=== PATIENT | female | born 1995 | race Caucasian/White ===

== ENCOUNTER 2024-04-02 18:02 | Inpatient (IN) ==
[2024-04-02] MEDS ORDERED: LIDOCAINE 1% LOCAL 20 ML VIAL INFIL PRN (18:14)
[2024-04-02] MEDS ORDERED: OXYTOCIN 30 UNITS/NSS 30 UNITS/500 ML BAG IV PRN (18:14)
[2024-04-02 18:57] LABS: Hematocrit (blood only) 35.8 % (37.0-47.0); Hemoglobin 12.1 g/dl (12.0-16.0); Mean Corpuscular Hemoglobin 29.6 pg (25.0-34.0); Mean Corpuscular Hgb Conc 33.8 g/dL (32.0-36.0); Mean Corpuscular Volume 87.5 fL (80.0-100.0); Platelet Count 274 K/uL (130-400); RDW Coefficient of Variation 13.1 % (11.5-14.5); RDW Standard Deviation 41.9 fL (36.4-46.3); Red Blood Count 4.09 M/uL (4.20-5.40); White Blood Count 12.54 K/ul (4.8-10.8)
[2024-04-02] MEDS: LACTATED RINGER'S 1,000 ML IV PRN (22:58)
[2024-04-02] MEDS: OXYTOCIN 30 UNITS/NSS 30 UNITS/500 ML BAG IV PRN (23:00)
[2024-04-03] MEDS ORDERED: diphenhydrAMINE 50 MG/ML VIAL IV PRN (01:08)
[2024-04-03] MEDS ORDERED: NALBUPHINE HCL 5 MG in SYRINGE 0 ML IV PRN (01:08)
[2024-04-03] MEDS ORDERED: NALOXONE HCL 1 MG in SODIUM CHLORIDE 0.9% 1,000 ML IV PRN (01:08)
[2024-04-03] MEDS ORDERED: NALOXONE HCL 0.4 MG/1 ML VIAL/CARP IV PRN (01:08)
[2024-04-03] MEDS ORDERED: fentaNYL citrate PF 100 MCG/2 ML VIAL EPI PRN (01:08)
[2024-04-03] MEDS ORDERED: ROPIVACAINE 0.5% PF 5 MG/ML 20 ML VIAL EPI PRN (01:08)
[2024-04-03] MEDS ORDERED: SODIUM CHLORIDE 0.9% PF INJ 10 ML VIAL EPI PRN (01:08)
[2024-04-03] MEDS ORDERED: LIDOCAINE 2% MPF LOCAL 5 ML VIAL EPI PRN (01:08)
[2024-04-03] MEDS ORDERED: BUPIVACAINE 0.25% PF 30 ML VIAL EPI PRN (01:08)
[2024-04-03] MEDS ORDERED: ePHEDrine sulfate 50 MG/ML AMP IV PRN (01:08)
--- NOTE | 2024-04-03 01:08 | Anesthesiology Consultation ---
Date of Service April 03, 2024 Assessment & Plan Chart Review Chart Review: Patient NOT seen in Pre Admission Testing and Acceptable Risk for Labor Epidural Consults Requested none History Height/Weight Height: 5 ft 4 in Weight: 79.832 kg Allergies Allergy/AdvReac Type Severity Reaction Status Date / Time banana Allergy Severe throat Verified 03/30/24 15:41 closes, hives, throwing up shellfish derived Allergy Severe throat Verified 03/30/24 15:41 closes, hives, throwing up Milk Containing Products Allergy Unknown became Verified 03/30/24 15:41 (Dairy) lactose intolerant during Medications Home Medications Medication Instructions Recorded Confirmed Last Taken acetaminophen 500 mg tablet 500 mg PO DIRECTED PRN 12/26/23 04/02/24 04/01/24 pain/fever cetirizine 10 mg tablet (Zyrtec) 10 mg PO DAILY 12/26/23 04/02/24 04/02/24 esomeprazole magnesium 20 mg 20 mg PO DAILY 02/05/24 04/02/24 04/01/24 capsule,delayed release cephalexin 500 mg capsule 500 mg PO TID 7 days #21 caps 03/30/24 04/02/24 04/02/24 14:30 diphenhydramine HCl 25 mg capsule 25 mg PO DIRECTED PRN NEEDED 03/30/24 04/02/24 03/27/24 (Benadryl) famotidine-Ca carb-mag hydrox 10 1 tab PO DIRECTED PRN NEEDED 03/30/24 04/02/24 04/01/24 mg-800 mg-165 mg chewable tablet (Pepcid Complete) glycerin (adult) 1 supp MN DAILY PRN ULCERATIVE 03/30/24 04/02/24 03/30/24 COLITIS ondansetron 4 mg disintegrating 4 - 8 mg (1 - 2 x 4 mg) PO Q6H PRN 03/30/24 04/02/24 04/01/24 tablet nausea and vomiting #20 tabs melatonin 5 mg chewable tablet 15 mg PO DAILY 04/02/24 04/02/24 04/01/24 vits no.124-ferrous fum 1 tab PO DAILY 04/02/24 04/02/24 04/01/24 27 mg iron-folic acid 800 mcg tablet ( Vitamin) Active Medications Generic Name Dose Route Start Last Admin Trade Name Livan PRN Reason Stop Dose Admin Lactated Ringer's 1,000 mls @ 125 mls/hr 04/02/24 18:14 04/03/24 01:06 Lr IV 04/04/24 18:13 125 mls/hr .Q8H PRN Infusion L&D Protocol Protocol Oxytocin 30 units in 500 mls @ 4 mls/hr 04/02/24 22:46 04/02/24 23:35 Pitocin 30 Units/Nss IV 04/04/24 22:45 0.24 units/hr .Q24H PRN 4 mls/hr Labor Induction/Augmentation Titration Protocol 0.24 UNITS/HR Past Medical History Medical History Ovarian cyst Varicella vaccination Depression Anxiety Asthma Past Family History Family History Grandmother (Maternal) Breast cancer Maternal grandmother, maternal great grandmother Aunt Crohn's disease Ovarian cancer maternal great aunt Grandfather (Paternal) Lung disease Denies family history of Colorectal cancer Past Surgical History Surgical History S/P endoscopy S/P wisdom tooth extraction S/P dilatation and curettage S/P colonoscopy H/O flexible sigmoidoscopy Social History Smoking Status: Former smoker Do You Dip or Chew Tobacco: No Hx Alcohol Use: No Hx Substance Use: No Physical Exam Vital Signs Last Vital Signs Temp 98.4 F 04/02/24 23:00 Pulse 89 04/03/24 01:05 Resp 18 04/02/24 23:00 BP 112/65 04/03/24 00:10 Pulse Ox 100 04/03/24 01:05 Testing Laboratory Results 04/02/24 18:36
[2024-04-03] MEDS: LIDOCAINE 2%/EPINEPHRINE 1:200,000 20 ML PF EPI STA (01:29)
[2024-04-03] MEDS: BUPIVACAINE 0.25% PF 30 ML VIAL EPI STA (01:29)
[2024-04-03] MEDS: fentANYL 2 MCG/ML BUPIVacaine 0.125%-NSS 100ML BAG EPI PRN (01:29)
[2024-04-03] MEDS: fentaNYL citrate PF 100 MCG/2 ML VIAL ONE (02:03)
[2024-04-03] MEDS: SODIUM CHLORIDE 0.9% PF INJ 10 ML VIAL ONE (02:03)
[2024-04-03] MEDS: ePHEDrine sulfate 50 MG/ML AMP ONE (02:03)
[2024-04-03] MEDS: BUPIVACAINE 0.25% PF 30 ML VIAL ONE (02:03)
[2024-04-03] MEDS: LIDOCAINE 2%/EPINEPHRINE 1:200,000 20 ML PF ONE (02:03)
[2024-04-03] MEDS: fentANYL 2 MCG/ML BUPIVacaine 0.125%-NSS 100ML BAG ONE (02:03)
[2024-04-03] MEDS: fentaNYL citrate PF 100 MCG/2 ML VIAL EPI STA (02:04)
[2024-04-03] MEDS: SODIUM CHLORIDE 0.9% PF INJ 10 ML VIAL EPI STA (02:04)
[2024-04-03] MEDS ORDERED: NURSING L&D Epidural Breakthrough Pain Update ONE (09:08)
--- NOTE | 2024-04-03 11:20 | Delivery Summary ---
Vaginal Delivery Summary Date of Service April 03, 2024 Vaginal Delivery Summary and 2nd Degree LAC Spontaneous vaginal delivery the patient arrived in labor at 36 weeks and 6 days group B strep negative first baby with rupture of membranes she spontaneously started to contract but required some Pitocin augmentation requested epidural and then progressed to fully dilated she then delivered a baby occiput anterior once the head was delivered fluid was clear but there was a tight nuchal cord this was clamped and cut while the head was delivered but the body was not baby was then easily delivered with gentle traction no excessive force combined with maternal expulsive efforts live vigorous female cord blood obtained placenta removed with traction IV Pitocin started there was a small second- degree tear repaired with 3-0 Vicryl sponge and instrument counts correct quanti tative blood loss 175 mL MNPG Vaginal Delivery Charge Delivery Type Details: and 2nd Degree LAC
[2024-04-03] MEDS ORDERED: HYDROCORTISONE ACETATE 25 MG SUPP PR PRN (11:40)
[2024-04-03] MEDS ORDERED: IBUPROFEN 600 MG TAB PO PRN (11:40)
[2024-04-03] MEDS ORDERED: oxyCODONE/ACETAMINOPHEN 5mg/325mg TAB PO PRN (11:40)
[2024-04-03] MEDS ORDERED: bisacodyL 10 MG SUPP PR PRN (11:40)
[2024-04-03] MEDS ORDERED: OXYTOCIN 30 UNITS/NSS 30 UNITS/500 ML BAG IV PRN (11:40)
[2024-04-03] MEDS ORDERED: FAMOTIDINE 20 MG TAB PO PRN (11:54)
--- NOTE | 2024-04-03 12:38 | Anesthesiology Progress Note ---
Date of Service April 03, 2024 Anesthesia Post Procedure Vital Signs Vital Signs: Temp Pulse Resp BP Pulse Ox 04/03/24 12:35 85 112/57 L 04/03/24 12:20 82 106/59 L 04/03/24 12:06 87 126/66 04/03/24 11:50 90 18 105/63 04/03/24 11:50 90 105/63 04/03/24 11:35 83 18 111/67 04/03/24 11:35 83 111/67 04/03/24 11:34 85 112/61 04/03/24 11:31 89 100 04/03/24 11:26 91 H 98 04/03/24 11:21 36.7 C 89 18 109/58 L 99 04/03/24 11:21 98 04/03/24 11:21 92 H 04/03/24 11:21 90 109/58 L 04/03/24 11:16 97 H 99 04/03/24 11:11 97 H 98 04/03/24 11:06 92 H 98 04/03/24 11:04 94 H 92 04/03/24 11:01 98 H 97 04/03/24 10:57 89 91 04/03/24 10:56 91 H 96 04/03/24 10:52 90 90 04/03/24 10:51 89 96 04/03/24 10:47 96 H 93 04/03/24 10:45 90 97 04/03/24 10:40 100 H 98 04/03/24 10:39 96 H 93 04/03/24 10:35 93 H 98 04/03/24 10:34 85 113/56 L 04/03/24 10:33 91 H 93 04/03/24 10:30 86 97 04/03/24 10:25 101 H 97 04/03/24 10:20 87 99 04/03/24 10:19 110 H 92 04/03/24 10:15 86 97 04/03/24 10:11 85 88 L 04/03/24 10:10 81 100 04/03/24 10:05 98 04/03/24 10:05 83 04/03/24 10:05 83 121/62 04/03/24 10:04 90 04/03/24 10:04 104 H 04/03/24 10:04 105 H 130/93 04/03/24 10:00 89 97 04/03/24 09:59 101 H 91 04/03/24 09:55 91 H 99 04/03/24 09:50 87 100 04/03/24 09:45 98 H 100 04/03/24 09:40 79 98 04/03/24 09:35 87 122/72 98 04/03/24 09:30 82 98 04/03/24 09:25 87 99 04/03/24 09:20 79 99 04/03/24 09:15 81 99 04/03/24 09:10 79 98 04/03/24 09:05 85 97 04/03/24 09:04 83 127/76 04/03/24 09:02 36.8 C 85 18 122/78 04/03/24 09:00 86 97 04/03/24 08:57 93 H 89 L 04/03/24 08:55 87 97 04/03/24 08:50 78 97 04/03/24 08:45 78 98 04/03/24 08:40 75 97 04/03/24 08:35 96 04/03/24 08:35 78 04/03/24 08:35 77 107/61 04/03/24 08:30 79 97 04/03/24 08:25 76 97 04/03/24 08:20 79 98 04/03/24 08:15 81 97 04/03/24 08:10 79 98 04/03/24 08:05 88 98 04/03/24 08:04 79 102/60 04/03/24 08:00 81 98 04/03/24 07:55 78 97 04/03/24 07:50 78 98 04/03/24 07:45 81 98 04/03/24 07:40 78 97 04/03/24 07:35 96 04/03/24 07:35 78 04/03/24 07:35 78 105/60 04/03/24 07:30 79 97 04/03/24 07:25 81 98 04/03/24 07:20 80 98 04/03/24 07:15 81 98 04/03/24 07:10 79 99 04/03/24 07:06 80 116/69 04/03/24 07:05 81 98 04/03/24 07:00 82 100 04/03/24 06:55 96 H 98 04/03/24 06:50 80 98 04/03/24 06:45 93 H 98 04/03/24 06:40 72 96 04/03/24 06:35 72 96 04/03/24 06:34 75 109/64 04/03/24 06:30 74 96 04/03/24 06:25 80 95 04/03/24 06:24 76 92 04/03/24 06:20 73 96 04/03/24 06:15 67 96 04/03/24 06:10 71 96 04/03/24 06:05 72 95 04/03/24 06:04 72 99/55 L 04/03/24 06:02 68 94 04/03/24 06:00 72 96 04/03/24 05:55 74 96 04/03/24 05:53 68 94 04/03/24 05:50 68 96 04/03/24 05:45 74 95 04/03/24 05:40 72 96 04/03/24 05:35 72 97 04/03/24 05:34 76 101/61 04/03/24 05:30 68 96 04/03/24 05:25 71 96 04/03/24 05:20 70 96 04/03/24 05:15 70 97 04/03/24 05:10 74 98 04/03/24 05:05 72 109/66 98 04/03/24 05:00 36.6 C 81 18 98 04/03/24 04:55 74 98 04/03/24 04:50 71 98 04/03/24 04:45 76 100 04/03/24 04:40 75 99 04/03/24 04:36 78 94/53 L 04/03/24 04:35 81 99 04/03/24 04:30 78 100 04/03/24 04:25 74 99 04/03/24 04:20 87 99 04/03/24 04:15 75 99 04/03/24 04:10 81 100 04/03/24 04:07 71 94 04/03/24 04:05 72 95 04/03/24 04:04 74 100/64 04/03/24 04:00 72 94 04/03/24 03:55 71 95 04/03/24 03:53 71 94 04/03/24 03:50 70 96 04/03/24 03:45 74 98 04/03/24 03:40 71 95 04/03/24 03:35 71 104/62 97 04/03/24 03:30 70 96 04/03/24 03:25 74 98 04/03/24 03:20 73 98 04/03/24 03:15 74 98 04/03/24 03:10 78 99 04/03/24 03:05 79 98 04/03/24 03:03 82 111/64 04/03/24 03:00 36.6 C 86 18 99 04/03/24 02:58 80 93/51 L 04/03/24 02:55 68 94 04/03/24 02:50 71 96 04/03/24 02:45 68 96 04/03/24 02:40 70 97 04/03/24 02:35 77 93/53 L 98 04/03/24 02:30 76 100 04/03/24 02:25 78 100 04/03/24 02:20 78 100 04/03/24 02:15 77 100 04/03/24 02:10 75 100 04/03/24 02:05 100 04/03/24 02:05 81 04/03/24 02:05 79 98/57 L 04/03/24 02:00 77 100 04/03/24 01:55 81 100 04/03/24 01:50 82 100 04/03/24 01:45 95 H 100 04/03/24 01:40 86 100 04/03/24 01:35 86 100 04/03/24 01:33 81 107/61 04/03/24 01:32 85 108/62 04/03/24 01:30 98 04/03/24 01:30 85 04/03/24 01:30 87 104/61 04/03/24 01:28 88 111/65 04/03/24 01:27 82 110/66 04/03/24 01:25 88 99 04/03/24 01:20 78 98 04/03/24 01:15 94 H 100 04/03/24 01:10 88 124/81 100 04/03/24 01:05 89 100 04/03/24 01:00 36.8 C 85 18 100 04/03/24 00:55 86 98 04/03/24 00:50 88 99 04/03/24 00:45 86 99 04/03/24 00:40 90 98 04/03/24 00:35 86 100 04/03/24 00:10 87 112/65 04/02/24 23:08 92 H 04/02/24 23:08 119/72 04/02/24 23:00 18 04/02/24 23:00 36.9 C 18 04/02/24 21:00 18 04/02/24 21:00 36.8 C 18 04/02/24 19:09 93 H 04/02/24 19:09 120/71 04/02/24 19:00 37.1 C 18 04/02/24 18:17 36.7 C 96 H 18 126/77 Pain Intensity Lower Medial Abdomen: Pain Intensity: 0 Notes Mental Status: alert / awake / arousable Patient Amnestic to Procedure: Yes Nausea / Vomiting: adequately controlled Pain: adequately controlled Airway Patency, RR, SpO2: stable & adequate BP & HR: stable & adequate Hydration State: stable & adequate Neuraxial Anesthesia: was administered and sensory block is resolving Anesthetic Complications: no major complications apparent
[2024-04-03] MEDS: DIPHTHER/TETAN/PERTUS Vaccine (Tdap, Adol/Adult) 0.5mL IM ONE (15:24)
[2024-04-03] MEDS: BENZOCAINE 20% SPRY 85 APPLN/85 GM CAN EXT PRN (18:45)
[2024-04-03] MEDS: ACETAMINOPHEN 325 MG TAB PO PRN (19:48)
[2024-04-03] MEDS: DOCUSATE SODIUM 100 MG CAP PO SCH (19:49)
--- NOTE | 2024-04-04 07:09 | Obstetrical Progress Note ---
Date of Service <Willam Brown DO - Last Filed: 04/04/24 08:41> April 04, 2024 Assessment & Plan <Willam Brown DO - Last Filed: 04/04/24 08:41> (1) Encounter for assessment: Patient is PPD 1 s/p and doing well - Eating well, voiding well, ambulating well - vitals reviewed and within normal limits - pain well controlled with analgesics - OOB, ambulation, diet progression as tolerated - Blood type: A positive, GBS neg, rubella immune - Plan to discharge tomorrow - After discharge, 6 [address] follow up with Dr. Peters visit type: exam and care immediately after delivery Qualified Code(s): Z39.0 - Encounter for care and examination of mother immediately after delivery <Cristiana Peters MD, FACOG - Last Filed: 04/05/24 07:46> (1) Encounter for assessment: Subjective <Willam Brown DO - Last Filed: 04/04/24 08:41> 28 yo post- day 1 s/p 36 week Ambulation: ambulating normally Voiding: no voiding problems Passing Gas:: Yes Diet Tolerance:: regular diet Lochia:: Small Feeding Type:: bottle feeding Current Pain Level:1/10 resting and 3/10 while ambulating, pain being managed well Resting comfortably this AM in NAD. Review of Systems Denies fever, chills, sweats Denies shortness of breath, difficulty breathing Denies chest pain and palpitations Denies breast pain, dysuria, headache or changes in vision Physical Exam <Willam Brown DO - Last Filed: 04/04/24 08:41> General: patient resting comfortably, NAD, non-toxic in appearance, answers questions appropriately. Skin: warm, dry, intact HEENT: NC/AT, anicteric sclera, conjunctiva without injection, moist mucus membranes. Heart: +S1/S2, regular rate and rhythm, no murmur Lungs: equal air entry bilaterally, no rales/rhonchi/wheezes Abd: +BS, soft, NT/ND, uterine fundus firm at umbilicus, caesarean incision C/D/I. Ext: warm, no clubbing/cyanosis or edema, Reynold's neg. Neuro: nonfocal, speech intact, no facial droop, moving all extremities. Results & Data <Willam Brown, DO - Last Filed: 04/04/24 08:41> Vital Signs (Past 12 Hours) Vital Signs Temp Pulse Resp BP Pulse Ox O2 Del Method 04/04/24 05:00 36.6 C 75 18 130/87 100 Room Air 04/04/24 00:50 36.4 C L 72 18 108/68 98 Room Air 04/03/24 19:50 36.4 C L 89 18 104/66 95 Room Air Diagnostic Findings OB Visit Log Date EGA Weight FH Pres FHR FM CX BP Alb Glu Edema NOV Prov Notes 01/27/24 27w 2d NOB nurse visit via phone. See comments. . 02/01/24 28w 0d 163 lb(+0 oz) 28 134 Active 124/62 0 2w JBS NOB transfer. 1hr gtt , labs, UACS, Papers - ML NOB transfer. 1hr gtt, labs, UACS, TDaP, Papers - ML 02/15/24 30w 0d 167 lb(+4 lb) 31 144 Active 122/84 0 2w JFD C/O having GI issues - MICHELLE 02/17/24 30w 2d HROBM : see comments, HK 02/29/24 32w 0d 169 lb 12.8 oz(+6 lb 12.8 oz) 32 150 Active 126/82 0 2w JDk MK 03/14/24 34w 0d 172 lb 12.8 oz(+9 lb 12.8 oz) 34 130s Active 124/78 0 2w SLN ML 03/28/24 36w 0d 176 lb 6.4 oz(+13 lb 6.4 oz) 36 V NST Decreased 128/80 0 1w MLN GBS today- Supervising Physician <Cristiana Peters MD, FACOG - Last Filed: 04/05/24 07:46> Co-Signing Physician Notes Resident Physician Supervision Note: I interviewed and examined the patient. Discussed with [Name of resident] and agree with findings and plan as documented in the note. Any exceptions or clarifications are listed here: [None] Documented By: Cristiana Peters MD, [facility] Resident Activity Tracking <Willam Brown DO - Last Filed: 04/04/24 08:41> Resident Involvement: Resident Care Provided Care Provided: Adult Hospital Medicine and OB Delivery
[2024-04-04] MEDS: PRENATAL VITAMIN 1 TAB PO SCH (08:41)
[2024-04-04 09:51] LABS: Hemoglobin 11.5 g/dl (12.0-16.0); Mean Corpuscular Hemoglobin 29.8 pg (25.0-34.0); Mean Corpuscular Hgb Conc 33.8 g/dL (32.0-36.0); Mean Corpuscular Volume 88.1 fL (80.0-100.0); Mean Platelet Volume 10.1 fL (9.4-12.4); Platelet Count 228 K/uL (130-400); RDW Coefficient of Variation 13.5 % (11.5-14.5); RDW Standard Deviation 43.3 fL (36.4-46.3); Red Blood Count 3.86 M/uL (4.20-5.40)
[2024-04-04] MEDS: PANTOprazole 40 MG TAB PO SCH (12:59)
[2024-04-04] MEDS: bisacodyL 5 MG TABEC PO SCH (21:56)
[2024-04-05 00:09] VITALS: O2SAT 97
--- NOTE | 2024-04-05 06:21 | Obstetrical Progress Note ---
Date of Service <Willam Brown DO - Last Filed: 04/05/24 06:52> April 05, 2024 Assessment & Plan <Willam Brown DO - Last Filed: 04/05/24 06:52> (1) Encounter for assessment: Patient is PPD 2 s/p and doing well - Eating well, voiding well, ambulating well - vitals reviewed and within normal limits - pain well controlled with analgesics - OOB, ambulation, diet progression as tolerated - Blood type: A positive, GBS neg, rubella immune - Plan to discharge today - Nothing in vagina for 6 weeks, no driving until patient can reliably press pedals without significant pain - After discharge, 6 week follow up with OB visit type: exam and care immediately after delivery Qualified Code(s): Z39.0 - Encounter for care and examination of mother immediately after delivery <Sarahi Parker MD - Last Filed: 04/05/24 06:53> (1) Encounter for assessment: Subjective <Willam Brown DO - Last Filed: 04/05/24 06:52> 28 yo post- day 2 s/p Ambulation: ambulating normally Voiding: no voiding problems Passing Gas:: Yes Diet Tolerance:: regular diet Lochia:: Small Feeding Type:: bottle feeding Current Pain Level: Resting comfortably this AM in NAD. Denies NUNO, CP, SOB, N/V/D, LE pain/swelling. Physical Exam <Willam Brown DO - Last Filed: 04/05/24 06:52> General: patient resting comfortably, NAD, non-toxic in appearance, answers questions appropriately. Skin: warm, dry, intact HEENT: NC/AT, anicteric sclera, conjunctiva without injection, moist mucus membranes. Heart: +S1/S2, regular rate and rhythm, no murmur Lungs: equal air entry bilaterally, no rales/rhonchi/wheezes Abd: +BS, soft, NT/ND, uterine fundus firm at umbilicus, caesarean incision C/D/I. Ext: warm, no clubbing/cyanosis or edema, Reynold's neg. Neuro: nonfocal, speech intact, no facial droop, moving all extremities. Results & Data <Willam Brown DO - Last Filed: 04/05/24 06:52> Vital Signs (Past 12 Hours) Vital Signs Temp Pulse Resp BP Pulse Ox O2 Del Method 04/04/24 23:45 37.1 C 87 16 122/76 97 Room Air 04/04/24 19:20 36.6 C 97 H 16 125/75 98 Room Air Supervising Physician <Sarahi Parker MD - Last Filed: 04/05/24 06:53> Co-Signing Physician Notes Resident Physician Supervision Note: I interviewed and examined the patient. Discussed with Dr. Brown and agree with findings and plan as documented in the note. Any exceptions or clarifications are listed here: [ ] Documented By: Sarahi Parker MD, FACOG Resident Activity Tracking <Willam Brown DO - Last Filed: 04/05/24 06:52> Resident Involvement: Resident Care Provided Care Provided: OB Delivery
[2024-04-05 09:14] VITALS: BP 106/65; PULSE 88; RESP 18; TEMP 98.4
== END 2024-04-05 11:55 | disposition home or self-care (01) | DRG 807 ==
LOC: OPB 18:02 → 4S1 18:04 → 4E2 04-03 14:46

== ENCOUNTER 2025-06-28 05:41 | Inpatient (IN) ==
[2025-06-28] MEDS: ONDANSETRON INJ 2 MG/ML 2 ML VIAL IV STA (06:07)
[2025-06-28] MEDS: SODIUM CHLORIDE 0.9% 1,000 ML IV STA (06:07)
[2025-06-28] MEDS: MoRPHine SULFATE 4 MG/ML 1 ML CARP\\VIAL IV STA (06:18)
--- NOTE | 2025-06-28 06:25 | Emergency Department Note ---
Impression & Plan Acute left flank pain, Pyelonephritis, First trimester ED Provider Note NAME: EDDA PAPPAS AGE: 29 SEX: F : 1995 ARRIVES VIA: Walk-In INFORMANT: Patient, ED PROVIDER(S): David Nunez DO CHIEF COMPLAINT: Abdominal pain HPI: The patient is a 29-year-old female who presented to the emergency department for an evaluation of abdominal pain. The patient noticed left-sided and flank pain and abdominal pain over the course of the last few days. The patient states symptoms started to become much worse. She also has been having diarrhea. The patient denies having any fever. She is currently 6 weeks . The patient denies having any chest pain or difficulty breathing. The patient has had kidney stones in the past but states this feels differently. ROS: See above HPI for pertinent positives & negatives. A total of 10 systems reviewed and were otherwise negative. PAST MEDICAL HISTORY: See Below PAST SURGICAL HISTORY: See Below FAMILY HISTORY: See Below SOCIAL HISTORY: See Below HOME MEDICATIONS: See Below ALLERGIES: See Below VITALS: See Below PHYSICAL EXAMINATION: GENERAL: The patient is awake and alert. The patient is very anxious and appears to be uncomfortable. EYES: The conjunctivae are clear. The pupils are round and reactive. EARS, NOSE, MOUTH AND THROAT: The nose is without any evidence of any deformity. NECK: The neck is nontender and supple. RESPIRATORY: Normal respiratory effort is noted there is no evidence of wheezing rhonchi or rales CARDIOVASCULAR: Regular rate and rhythm noted there no murmurs rubs or gallops normal S1 normal S2. GASTROINTESTINAL: The abdomen is soft and mildly distended. There is diffuse tenderness noted to palpation. There is left upper quadrant tenderness to palpation. BACK: No midline tenderness was noted. Right CVA tenderness was noted to percussion. MUSCULOSKELETAL/EXTREMITIES: There is no evidence of gross deformity full range of motion is noted in the hips and shoulders. SKIN: There is no obvious evidence of any rash. There are no petechiae, pallor or cyanosis noted. NEUROLOGIC: Patient is awake alert and oriented x3 strength is symmetric patellar reflexes are 2+ bilaterally MEDICAL DECISION MAKING: The patient is a 29-year-old female who presented to the emergency department for evaluation of abdominal pain. The patient had left-sided flank pain. The patient was having severe pain and she was treated with pain medication as well as IV fluids. She was also given IV antibiotics for presumed urinary tract infection. I discussed patient's laboratory and radiographic studies with her. She did not wish to have any radiographic studies using ionizing imaging given her first Dermasure . Her ultrasound did not show any abnormality with the there does appear to be an intrauterine gestation but she was found to have slight hydronephrosis on the left. She does have a history of kidney stones but at this time I do not feel this is likely related to a kidney stone. The patient may have a urinary tract infection noted on urinalysis. I discussed her condition with the on-call [facility] FACILITY DESIGNER doctor. I also discussed her condition with the on-call [facility] hospitalist group. They have agreed to evaluate the patient in the emergency department. Triage Nursing notes reviewed. Prior medical records reviewed Vital Signs: reviewed and remarkable for no significant abnormalities Differential diagnosis: Etiologies such as appendicitis, diverticulitis, obstruction, inflammatory bowel disease, renal colic, PUD, biliary pathology, pancreatitis, mesenteric ischemia, aortic pathology, infections, genitourinary, UTI, perforated viscus, as well as others were entertained. ER treatment provided: See below Diagnostics interpreted by me: ECG: none Cardiac Monitoring: An order was placed for continuous cardiac monitoring. The monitor shows a rate of 70 bpm with sinus rhythm. Laboratory studies: As stated above and show below. Imaging studies: See below. Radiographic imaging was reviewed by myself Consultation(s): I discussed this case with Dr. Muniz who is on for the [facility] FACILITY DESIGNER group. Dr. Carballo who is on for the [facility] hospitalist group was notified about the patient. Past Med/Surg History Problem List (Updated 06/28/25 @ 11:24 by David Nunez DO) First trimester (Acute) Pyelonephritis (Acute) Acute left flank pain (Acute) Heavy menses Labral tear of right hip joint Labral tear of left hip joint Femoroacetabular impingement state Mild persistent asthma Allergy to shellfish Chronic rhinitis Recurrent sinusitis Seasonal allergies Encounter for assessment GERD (gastroesophageal reflux disease) Constipation Hidradenitis suppurativa Change in bowel habits Ulcerative proctitis Acetabular labrum tear R side pruritus Eosinophilic esophagitis Ulcerative colitis in remission Encounter for supervision of normal intrauterine in multigravida, antepartum Encounter for anatomic survey Medical History GERD (gastroesophageal reflux disease) Hx of gastroesophageal reflux (GERD) Seasonal allergies Ulcerative colitis in remission History of anesthesia reaction "when she goes to sleep, she is always panicked" Recurrent sinusitis Hidradenitis suppurativa Eosinophilic esophagitis hx Constipation Chronic rhinitis Ovarian cyst hx Depression Anxiety Asthma mild, inhaler prn Surgical History History of hip surgery (02/2025) right labral tear S/P endoscopy S/P wisdom tooth extraction S/P dilatation and curettage S/P colonoscopy H/O flexible sigmoidoscopy Family History Grandmother (Maternal) Breast cancer Maternal grandmother, maternal great grandmother Aunt Crohn's disease Ovarian cancer maternal great aunt Grandfather (Paternal) Lung disease Denies family history of Colorectal cancer Social History Smoking Status: Former smoker Tobacco Type: Cigarettes and E-cigarettes / Vaping Age Started Using Tobacco: 20; Age Quit Using Tobacco: 27; packs per day: 0.25; Second Hand Exposure: Yes (hx as small child); Do You Dip or Chew Tobacco: No; Hx Alcohol Use: No Hx Substance Use: No Preferred Language: [place] Communication Ability: Effective Sustainability Consultant Required: No Beliefs That Will Affect Care: None marital status: marital status details: Malick Pappas (24) [phone] Current Living Situation: Spouse Current Living Situation Comment: Lives at home with and 3 dogs. current occupational status: unemployed Feels Safe at Home: Yes Assistive Devices: Glasses Allergies Allergies Allergy/AdvReac Type Severity Reaction Status Date / Time banana Allergy Severe throat Verified 06/04/25 15:23 closes, hives, throwing up shellfish derived Allergy Severe throat Verified 06/04/25 15:23 closes, hives, throwing up oxycodone AdvReac Severe Vomiting Unverified 06/04/25 15:23 Home Meds Home Medications Medication Instructions Recorded Confirmed cetirizine 10 mg tablet (Zyrtec) 10 mg PO QPM 12/26/23 06/28/25 esomeprazole magnesium 20 mg 20 mg PO QPM 02/05/24 06/28/25 capsule,delayed release fluoxetine 10 mg capsule 10 mg PO QAM 04/22/25 06/28/25 fluoxetine 20 mg capsule 20 mg PO QAM 04/22/25 06/28/25 acetaminophen 500 mg tablet 1,000 mg PO Q6H PRN Pain 06/04/25 06/28/25 vit no.95-ferrous 1 tab PO DAILY 06/28/25 06/28/25 fumarate 28 mg-folic acid 800 mcg tablet () Previous Rx's Medication Instructions Recorded epinephrine 0.3 mg/0.3 mL 0.3 mg (0.3 mL) IM Q15M PRN 06/02/24 injection, auto-injector anaphylaxis #2 ea inhalational spacing device #1 ea 06/02/24 ondansetron 4 mg disintegrating 4 mg PO Q6H PRN nausea and 06/04/25 tablet vomiting #14 tabs Results & Data (ED) Vital Signs Vital Signs - 24 hr 06/28/25 05:44 06/28/25 06:11 06/28/25 06:13 Temperature 36.5 C Temperature Source Oral Pulse Rate 92 H 86 Pulse Rate [Apical] Pulse Rhythm Regular Pulse Rhythm [Apical] Pulse Strength Normal Pulse Strength [Apical] Respiratory Rate 18 Respiratory Effort / Characteristics Non-Labored Spontaneous Respiratory Depth Normal Respiratory Pattern Regular Blood Pressure 127/81 Blood Pressure [Left Arm] Blood Pressure Mean 96 Blood Pressure Mean [Left Arm] Blood Pressure Position Sitting Blood Pressure Position [Left Arm] Pulse Oximetry 95 98 Oxygen Delivery Method Room Air Room Air Sepsis Recent Fever Within 48 Hours No Sepsis New/Unexplained Change in Mental Status N/A Sepsis Action Taken by Nursing No Action Required 06/28/25 08:00 06/28/25 10:00 06/28/25 10:19 Temperature Temperature Source Pulse Rate 70 Pulse Rate [Apical] 75 78 Pulse Rhythm Pulse Rhythm [Apical] Regular Regular Pulse Strength Pulse Strength [Apical] Normal Normal Respiratory Rate 18 17 Respiratory Effort / Characteristics Non-Labored Spontaneous Non-Labored Spontaneous Respiratory Depth Normal Normal Respiratory Pattern Regular Regular Blood Pressure Blood Pressure [Left Arm] 127/79 111/65 Blood Pressure Mean Blood Pressure Mean [Left Arm] 95 80 Blood Pressure Position Blood Pressure Position [Left Arm] Sitting Pulse Oximetry 97 98 Oxygen Delivery Method Room Air Room Air Sepsis Recent Fever Within 48 Hours Sepsis New/Unexplained Change in Mental Status Sepsis Action Taken by [facility]dc Medications Current Medication List: was personally reviewed by me Laboratory Data Attestation: I reviewed the patient's lab results. 06/28/25 06:04 06/28/25 06:04 Lab Results 06/28/25 06/28/25 Range/Units 06:04 06:11 WBC 11.86 H (4.8-10.8) K/ul RBC 4.19 L (4.20-5.40) M/uL Hgb 12.1 (12.0-16.0) g/dl Hct 36.1 L (37.0-47.0) % MCV 86.2 (80.0-100.0) fL MCH 28.9 (25.0-34.0) pg MCHC 33.5 (32.0-36.0) g/dL RDW Std Deviation 39.8 (36.4-46.3) fL RDW Coeff of Taty 12.7 (11.5-14.5) % Plt Count 349 (130-400) K/uL MPV 9.0 L (9.4-12.4) fL Immature Gran % (Auto) 0.4 % Neut % (Auto) 75.8 % Lymph % (Auto) 16.1 % [place] % (Auto) 4.3 % Eos % (Auto) 2.9 % Baso % (Auto) 0.5 % Neut # (Auto) 8.99 H (1.40-6.50) K/uL Lymph # (Auto) 1.91 (1.20-3.40) K/uL Weston # (Auto) 0.51 (0.11-0.59) K/uL Eos # (Auto) 0.34 (0.00-0.50) K/uL Baso # (Auto) 0.06 (0.00-0.20) K/uL Immature Gran # (Auto) 0.05 (0.01-0.20) K/uL Sodium 136 (136-145) mmol/L Potassium 3.6 (3.5-5.1) mmol/L Chloride 105 (98-107) mmol/L Carbon Dioxide 24 (21-32) mmol/L Anion Gap 7 (3-11) BUN 11 (6-23) mg/dl Creatinine 0.78 (0.6-1.2) mg/dl Est Cr Clr Drug Dosing 91.9 ml/min eGFR 105.38 BUN/Creatinine Ratio 14.1 (10-20) Glucose 105 H (70-99(Fasting)) mg/dl Calcium 9.0 (8.6-10.3) mg/dl Total Bilirubin 0.4 (0.2-1.0) mg/dl AST 13 (13-39) U/L ALT 11 (7-52) U/L Alkaline Phosphatase 53 (34-104) U/L Total Protein 7.0 (6.0-8.3) gm/dl Albumin 4.5 (3.4-5.0) gm/dl Globulin 2.5 (2.5-4.0) gm/dl Albumin/Globulin Ratio 1.8 (0.9-2) Lipase 9 L (11-82) U/L HCG, Quant 96942 mIU/ml Urine Color Dark Yellow Urine Appearance Turbid A (Clear) Urine pH 5.5 (4.5-7.5) Ur Specific [place] 1.028 (1.000-1.030) Urine Protein Trace H (Negative) Urine Glucose (UA) Negative (Negative) Urine Ketones Trace H (Negative) Urine Blood Negative (Negative) Urine Nitrite Negative (Negative) Urine Bilirubin Negative (Negative) Urine Urobilinogen Negative (Negative) Ur Leukocyte Esterase 1+ H (Negative) Urine WBC (Auto) 21-50 H (0-5) /hpf Urine RBC (Auto) 6-10 H (0-2) /hpf U Hyaline Cast (Auto) 3-5 H (0-2) /lpf U Epithel Cells (Auto) >20 H (0-2) /hpf Urine Bacteria (Auto) 4+ H (None Seen) Urine Comment Stl C. cayetanensis PCR Not Detected (NotDetected) Stool Rotavirus A PCR Not Detected (NotDetected) Stl Adenov F 40/41 PCR Not Detected (NotDetected) Stool Astrovirus (PCR) Not Detected (NotDetected) Stool Campylobacter PCR Not Detected (NotDetected) Stl C. diff Tox B Gene Negative Cdiff Gene (Neg) Stl C. diff [id number] NEGATIVE Stool Cryptosporidium PCR Not Detected (NotDetected) Stl E.coli Shiga Tox PCR Not Detected (NotDetected) Stl Enterotoxigenic E PCR Not Detected (NotDetected) Stool EPEC (PCR) Not Detected (NotDetected) Stool EAEC (PCR) Not Detected (NotDetected) Stl E. histolytica PCR Not Detected (NotDetected) Stool Giardia Lamblia PCR Not Detected (NotDetected) Stool Salmonella PCR Not Detected (NotDetected) Stool Sapovirus (PCR) Not Detected (NotDetected) Stl P. shigelloides PCR Not Detected (NotDetected) Stl Shigella/EIEC PCR Not Detected (NotDetected) St Y.enterocolitica PCR Not Detected (NotDetected) Stool Vibrio (PCR) Not Detected (NotDetected) Stl Vibrio cholerae PCR Not Detected (NotDetected) Stl Norovirus GI/GII PCR Not Detected (NotDetected) Administered Medications Morphine Sulfate (Morphine Sulfate 4 Mg/Ml 1 Ml Carp\\Vial) 4 mg IV Q30M PRN PRN Reason: Pain Stop: 07/12/25 06:12 Last Admin: 06/28/25 10:10 Dose: 4 mg Documented By: lavelle Admin: 06/28/25 08:54 Dose: 4 mg Documented By: lavelle Admin: 06/28/25 07:04 Dose: 4 mg Documented By: arsalan Discontinued Medications Sodium Chloride (Nss) 1,000 mls @ 999 mls/hr IV .Q1H1M STA Stop: 06/28/25 06:52 Last Admin: 06/28/25 06:07 Dose: 999 mls/hr Documented By: MARILEE Ceftriaxone Sodium (Rocephin) 2,000 mg in 50 mls @ 100 mls/hr IV NOW STA Stop: 06/28/25 07:31 Last Infusion: 06/28/25 08:00 Dose: Infused Documented By: lavelle Admin: 06/28/25 07:28 Dose: 100 mls/hr [place] [facility] [place]ine Sulfate (Morphine Sulfate 4 Mg/Ml 1 Ml Carp\\Vial) 4 mg IV NOW STA Stop: 06/28/25 06:14 Last Admin: 06/28/25 06:18 Dose: 4 mg Documented By: [facility] Ondansetron HCl (Ondansetron Inj 2 Mg/Ml 2 Ml Vial) 4 mg IV NOW STA Stop: 06/28/25 05:53 Last Admin: 06/28/25 06:07 Dose: 4 mg Documented By: MARILEE Imaging Data Attestation: I personally reviewed and interpreted this imaging study as follows: My Impression: Ultrasound of the pelvis was obtained in the emergency department. My interpretation is intrauterine gestational sac noted. Final report below. Radiologist's Impression: Ultrasound 06/28/25 06:12 US OB <= 14 weeks fetus, US OB transvaginal HISTORY: 29 years-old Female pain acute generalized pelvic pain with COMPARISON: CT abdomen and pelvis 06/04/2025 TECHNIQUE: Multiple real-time sonographic images of the deep pelvic structures were obtained transabdominally and transvaginally assessing grayscale appearance, color and spectral flow with M-mode analysis FINDINGS: TRANSABDOMINAL: The uterus measures 8.6 x 5.6 cm. The ovaries are obscured by bowel gas. TRANSVAGINAL: Retroflexed uterus. Intrauterine gestational sac measuring 1.24 cm, 5 weeks and 3 days. This contains a 0.28 cm yolk sac. No pole identified at this time. No definite subchorionic hemorrhage or other abnormality identified. Trace nonspecific free pelvic fluid. The left ovary measures 2.4 x 1.7 x 1.8 cm. The right ovary measures 3.6 x 2.2 x 2.2 cm. Spectral analysis was not performed on the ovaries. No adnexal mass lesions identified. IMPRESSION: 1. Intrauterine gestational sac and yolk sac without pole identified at this time. Follow-up ultrasound imaging with serial quantitative beta hCG analysis is needed to confirm viability. 2. Unremarkable sonographic appearance of the ovaries. 3. Trace nonspecific free pelvic fluid. ACT 112: Negative or not required by law. The above report was generated using voice recognition software. It may contain grammatical, syntax or spelling errors. Electronically signed by: Andry Tellez M.D. 06/28/2025 9:01 AM Renal Ultrasound 06/28/25 06:12 RENAL ULTRASOUND HISTORY: left flank pain COMPARISON: CT of 06/04/2025 FINDINGS: Right kidney measures 10 x 5 cm. Left kidney measures 11 x 5 cm. There is minimal hydronephrosis at the left kidney. No hydronephrosis seen at the right kidney. There is normal Doppler flow to both kidneys. No renal calculi seen. Urinary bladder is decompressed. IMPRESSION: Minimal hydronephrosis left kidney. No renal calculi seen. There was a 3 mm calculus lower left kidney on the recent prior CT scan. ACT 112: Negative or not required by law. Electronically signed by: Elmer Campos M.D. 06/28/2025 8:48 AM Transvaginal US 06/28/25 06:12 US OB <= 14 weeks fetus, US OB transvaginal HISTORY: 29 years-old Female pain acute generalized pelvic pain with COMPARISON: CT abdomen and pelvis 06/04/2025 TECHNIQUE: Multiple real-time sonographic images of the deep pelvic structures were obtained transabdominally and transvaginally assessing grayscale appearance, color and spectral flow with M-mode analysis FINDINGS: TRANSABDOMINAL: The uterus measures 8.6 x 5.6 cm. The ovaries are obscured by bowel gas. TRANSVAGINAL: Retroflexed uterus. Intrauterine gestational sac measuring 1.24 cm, 5 weeks and 3 days. This contains a 0.28 cm yolk sac. No pole identified at this time. No definite subchorionic hemorrhage or other abnormality identified. Trace nonspecific free pelvic fluid. The left ovary measures 2.4 x 1.7 x 1.8 cm. The right ovary measures 3.6 x 2.2 x 2.2 cm. Spectral analysis was not performed on the ovaries. No adnexal mass lesions identified. IMPRESSION: 1. Intrauterine gestational sac and yolk sac without pole identified at this time. Follow-up ultrasound imaging with serial quantitative beta hCG analysis is needed to confirm viability. 2. Unremarkable sonographic appearance of the ovaries. 3. Trace nonspecific free pelvic fluid. ACT 112: Negative or not required by law. The above report was generated using voice recognition software. It may contain grammatical, syntax or spelling errors. Electronically signed by: Andry Tellez M.D. 06/28/2025 9:01 AM Discharge Plan Visit Data Chief Complaint: Back Injury/Pain Stated Complaint: 6WKS PREG, LOW BCK PAIN/ABD, VOMIT ED Provider: David Nunez Discharge Problem: Acute left flank pain, Pyelonephritis, First trimester Patient Disposition: Being Evaluated by Hospitalist Condition: Fair Forms Stand Alone Forms: My [facility] Prescriptions Prescriptions: No Action esomeprazole magnesium 20 mg capsule,delayed release(DR/EC) 20 mg PO QPM epinephrine 0.3 mg/0.3 mL auto-injector 0.3 mg IM Q15M PRN (Reason: anaphylaxis) Qty: 2 0RF (DME) inhalational spacing device Spacer See Rx Instructions .ROUTE .MEDSUPPLY Qty: 1 0RF Rx Instructions: As directed cetirizine [Zyrtec] 10 mg Tablet 10 mg PO QPM acetaminophen 500 mg Tablet 1,000 mg PO Q6H PRN (Reason: Pain) ondansetron 4 mg tablet,disintegrating 4 mg PO Q6H PRN (Reason: nausea and vomiting) Qty: 14 0RF fluoxetine 10 mg capsule 10 mg PO QAM Rx Instructions: Take w/ 20mg to equal 30mg by mouth every morning. fluoxetine 20 mg capsule 20 mg PO QAM Rx Instructions: Take w/ 10mg to equal 30mg by mouth every morning. PNV no.95-ferrous fumarate-FA [] 28 mg iron- 800 mcg Tablet 1 tab PO DAILY Referrals Referrals: Melody Jerome DO [Primary Care Provider] -
[2025-06-28 06:30] LABS: Hematocrit (blood only) 36.1 % (37.0-47.0); Hemoglobin 12.1 g/dl (12.0-16.0); Immature Granulocytes # (auto) 0.05 K/uL (0.01-0.20); Immature Granulocytes % (auto) 0.4 %; Mean Corpuscular Hemoglobin 28.9 pg (25.0-34.0); Mean Corpuscular Volume 86.2 fL (80.0-100.0); Platelet Count 349 K/uL (130-400); RDW Standard Deviation 39.8 fL (36.4-46.3); Red Blood Count 4.19 M/uL (4.20-5.40); White Blood Count 11.86 K/ul (4.8-10.8)
[2025-06-28 06:41] LABS: Appearance Urine Turbid (Clear); Bacteria Urine Automated 4+ (None Seen); Epithelial Cell Urine Auto >20 /hpf (0-2); Glucose Urine UA Negative (Negative); WBC Urine Automated 21-50 /hpf (0-5)
[2025-06-28 06:49] LABS: Alanine Aminotransferase 11.0 U/L (7-52); Albumin Globulin Ratio 1.8 (0.9-2); Albumin Level 4.5 gm/dl (3.4-5.0); Alkaline Phosphatase 53.0 U/L (34-104); Anion Gap 7.0 (3-11); Bilirubin,Total 0.4 mg/dl (0.2-1.0); Blood Urea Nitrogen 11.0 mg/dl (6-23); Calcium 9.0 mg/dl (8.6-10.3); Carbon Dioxide 24.0 mmol/L (21-32); Chloride 105.0 mmol/L (98-107); Creatinine Clr Calc Pharmacy 91.9 ml/min; Globulin 2.5 gm/dl (2.5-4.0); Glucose 105.0 mg/dl (70-99(Fasting)); Lipase 9.0 U/L (11-82); Potassium 3.6 mmol/L (3.5-5.1); Sodium 136.0 mmol/L (136-145); Total Protein 7.0 gm/dl (6.0-8.3)
[2025-06-28] MEDS: MoRPHine SULFATE 4 MG/ML 1 ML CARP\\VIAL IV PRN (07:04)
[2025-06-28] MEDS: cefTRIAXone SODIUM 2,000 MG/50 ML BAG IV STA (07:28)
[2025-06-28 08:03] LABS: Cdiff Toxin B Gene (2yr or >) Negative Cdiff Gene (Neg)
--- NOTE | 2025-06-28 08:49 | Ultrasound Report ---
RENAL ULTRASOUND HISTORY: left flank pain COMPARISON: CT of 06/04/2025 FINDINGS: Right kidney measures 10 x 5 cm. Left kidney measures 11 x 5 cm. There is minimal hydroneph rosis at the left kidney. No hydronephrosis seen at the right kidney. There is normal Doppler flow to both kidneys. No renal calculi seen. Urinary bladder is decompressed. IMPRESSION: Minimal hydronephrosis left kidney. No renal calculi seen. There was a 3 mm calculus low er left kidney on the recent prior CT scan. ACT 112: Negative or not required by law. Electronically signed by: Elmer Campos M.D. 06/28/2025 8:48 AM
[2025-06-28 09:04] LABS: Adenovirus F 40/41 PCR Not Detected (NotDetected); Campylobacter PCR Not Detected (NotDetected); Enteroaggregative E.coli(EAEC) Not Detected (NotDetected); Shiga-like Toxin E.coli (STEC) Not Detected (NotDetected); Vibrio species PCR Not Detected (NotDetected)
--- NOTE | 2025-06-28 09:04 | Ultrasound Report ---
US OB <= 14 weeks fetus, US OB transvaginal HISTORY: 29 years-old Female pain acute generalized pelvic pain with COMPARISON: CT abdomen and pelvis 06/04/2025 TECHNIQUE: Multiple real-time sonographic images of the deep pelvic structures were obtained transabd ominally and transvaginally assessing grayscale appearance, color and spectral flow with M-mode malathi sis FINDINGS: TRANSABDOMINAL: The uterus measures 8.6 x 5.6 cm. The ovaries are obscured by bowel gas. TRANSVAGINAL: Retroflexed uterus. Intrauterine gestational sac measuring 1.24 cm, 5 weeks and 3 days. This contains a 0.28 cm yolk sac. No pole identified at this time. No definite subchorionic he morrhage or other abnormality identified. Trace nonspecific free pelvic fluid. The left ovary measures 2.4 x 1.7 x 1.8 cm. The right ovary measures 3.6 x 2.2 x 2.2 cm. Spectral jermaine lysis was not performed on the ovaries. No adnexal mass lesions identified. IMPRESSION: 1. Intrauterine gestational sac and yolk sac without pole identified at this time. Follow-up ul trasound imaging with serial quantitative beta hCG analysis is needed to confirm viability. 2. Unremarkable sonographic appearance of the ovaries. 3. Trace nonspecific free pelvic fluid. ACT 112: Negative or not required by law. The above report was generated using voice recognition software. It may contain grammatical, syntax o r spelling errors. Electronically signed by: Andry Tellez M.D. 06/28/2025 9:01 AM
[2025-06-28] MEDS: MoRPHine SULFATE 2 MG/ML CARP IV PRN (12:16)
--- NOTE | 2025-06-28 12:51 | History & Physical Report ---
Date of Service June 28, 2025 Assessment & Plan (1) Pyelonephritis: (2) First trimester : (3) Anxiety and depression: Plan Pt is a 29 yo female with PMH of UC, depression/anxiety, GERD, intermittent asthma, and currently 6 weeks who who was admitted for concern for concern for complicated UTI/pyelonephritis. #Complicated UTI/pyelonephritis #First trimester UA shows evidence of UTI along pt pt report of symptoms that started 2-3 days ago. Pt now having significant left> right lower abdominal and back pain and findings of mild hydronephrosis on US. No vaginal bleeding or discharge and quant HCG are reassuring for continued viable . Pt received IVF bolus and has been tolerating PO fluids since presentation to ED. - Continue IV ceftriaxone 2g q24h with plan to transition to oral abx at DC - Encourage PO fluids, if unable to tolerate- will consider resuming IVF - Tylenol 650mg q6h prn for pain. - If pain is uncontrolled, has IV morphine 1mg q2h or 2mg q4h for severe pain. - Ordered IV zofran 4mg prn q6h for nausea - Ordered OB consult - Continue vitamin Chronic conditions: - Anxiety/depression- continue fluoxetine 30mg daily - GERD- Continue pantoprazole 40mg Qpm - Seasonal allergies- Continue Zyrtec 10 mg qd Dispo- observation in med/surg Diet- regular as tolerated DVT prophylaxis- none, pt is mobile Code- full History of Present Illness Chief Complaint: UTI/ left sided back pain Primary Care Provider: Melody Jerome DO Pt is a 29 yo female with PMH of UC, depression/anxiety, GERD, intermittent asthma, and currently 6 weeks who presented to ED with UTI symptoms and progressive left sided lower abdominal and low back pain. Pt symptoms started 2- 3 days ago with frequent urination and urinary hesitation. Pt awoke at 3am this morning with severe lower abdominal pain and dysuria. Pt states urine was dark in color, but did not note hematuria. She states pain progressed to primarily left lower quadrant and left>right lumbar region. She also had 7 episodes of loose BM's this morning. Pt endorses intermittent chills and hot flashes, nausea, vomiting, and dizziness. Pt denies chest pain, SOB, vaginal bleeding/discharge or other new arthralgias/myalgias. Pt had positive home test 3 weeks ago. She has not established with OB yet. In ED, pt has been treated in with INF bolus, IV morphine and IV ceftriaxone. Pt noting pain continues, but improved to 3-4/10. Pt describes pain at abdomen as "feels like my bladder wants to explode". Pt denies any BMs since coming to ED. Allergies Allergy/AdvReac Type Severity Reaction Status Date / Time banana Allergy Severe throat Verified 06/04/25 15:23 closes, hives, throwing up shellfish derived Allergy Severe throat Verified 06/04/25 15:23 closes, hives, throwing up oxycodone AdvReac Severe Vomiting Unverified 06/04/25 15:23 Home Medications Medication Instructions Recorded Confirmed Type cetirizine 10 mg tablet (Zyrtec) 10 mg PO QPM 12/26/23 06/28/25 History esomeprazole magnesium 20 mg 20 mg PO QPM 02/05/24 06/28/25 History capsule,delayed release epinephrine 0.3 mg/0.3 mL 0.3 mg (0.3 mL) IM Q15M PRN 06/02/24 06/28/25 Rx injection, auto-injector anaphylaxis #2 ea inhalational spacing device #1 ea 06/02/24 11/18/24 Rx fluoxetine 10 mg capsule 10 mg PO QAM 04/22/25 06/28/25 History fluoxetine 20 mg capsule 20 mg PO QAM 04/22/25 06/28/25 History acetaminophen 500 mg tablet 1,000 mg PO Q6H PRN Pain 06/04/25 06/28/25 History ondansetron 4 mg disintegrating 4 mg PO Q6H PRN nausea and 06/04/25 06/28/25 Rx tablet vomiting #14 tabs vit no.95-ferrous 1 tab PO DAILY 06/28/25 06/28/25 History fumarate 28 mg-folic acid 800 mcg tablet () Past Med/Surg History Problem List (Updated 06/28/25 @ 15:39 by Malik Carballo MD) Anxiety and depression First trimester (Acute) Pyelonephritis (Acute) Mild persistent asthma Hidradenitis suppurativa Eosinophilic esophagitis Ulcerative colitis in remission Medical History (Updated 06/28/25 @ 15:39 by Malik Carballo MD) Femoroacetabular impingement Labral tear of left hip joint Labral tear of right hip joint Ulcerative colitis in remission History of anesthesia reaction "when she goes to sleep, she is always panicked" Hidradenitis suppurativa Eosinophilic esophagitis hx Ovarian cyst hx Surgical History History of hip surgery (02/2025) right labral tear S/P endoscopy S/P wisdom tooth extraction S/P dilatation and curettage S/P colonoscopy H/O flexible sigmoidoscopy Family History Grandmother (Maternal) Breast cancer Maternal grandmother, maternal great grandmother Aunt Crohn's disease Ovarian cancer maternal great aunt Grandfather (Paternal) Lung disease Denies family history of Colorectal cancer Social History Smoking Status: Former smoker Tobacco Type: Cigarettes and E-cigarettes / Vaping Age Started Using Tobacco: 20; Age Quit Using Tobacco: 27; packs per day: 0.25; Second Hand Exposure: Yes; Do You Dip or Chew Tobacco: No; Hx Alcohol Use: No Hx Substance Use: No Preferred Language: Nicaraguan Communication Ability: Effective Binder Caser Required: No Beliefs That Will Affect Care: None marital status: marital status details: Malick Pappas (24) [phone] Current Living Situation: Spouse and Family Current Living Situation Comment: Lives at home with and 3 dogs. current occupational status: unemployed Other Information That Helps Us Care for You: No Feels Safe at Home: Yes Safety Concerns: Feels Safe At This Time Assistive Devices: Glasses Review of Systems Review of Systems: As per HPI Physical Exam Physical Exam: Gen: NAD, but anxious HENT: Normocephalic, atraumatic. Trachea midline, no thyromegaly Cardio: RRR, no murmurs or clicks. No LE edema Resp: CTAB, Equal bilateral chest rise, no increased work of breathing GI: Non distended, soft, tender at LLQ, normoactive bowel sounds MSK: Moving all 4 extremities independently. General tenderness at bilateral lumbar region. No CVA tenderness Skin: Dry, of normal skin tone, no rashes noted on exposed skin Neuro: A& O x 3, normal affect Results & Data Results & Data Vital Signs (Past 12 Hours) Vital Signs Temp Pulse Pulse Resp BP BP Pulse Ox 06/28/25 12:00 76 18 107/72 98 06/28/25 10:19 70 06/28/25 10:00 78 17 111/65 98 06/28/25 08:00 75 18 127/79 97 06/28/25 06:13 98 06/28/25 06:11 86 06/28/25 05:44 36.5 C 92 H 18 127/81 95 O2 Del Method 06/28/25 12:00 Room Air 06/28/25 10:19 06/28/25 10:00 Room Air 06/28/25 08:00 Room Air 06/28/25 06:13 Room Air 06/28/25 06:11 06/28/25 05:44 Room Air Laboratory Results Abnormal lab results 06/28/25 06/28/25 Range/Units 06:04 06:11 WBC 11.86 H (4.8-10.8) K/ul RBC 4.19 L (4.20-5.40) M/uL Hct 36.1 L (37.0-47.0) % MPV 9.0 L (9.4-12.4) fL Neut # (Auto) 8.99 H (1.40-6.50) K/uL Glucose 105 H (70-99(Fasting)) mg/dl Lipase 9 L (11-82) U/L Urine Appearance Turbid A (Clear) Urine Protein Trace H (Negative) Urine Ketones Trace H (Negative) Ur Leukocyte Esterase 1+ H (Negative) Urine WBC (Auto) 21-50 H (0-5) /hpf Urine RBC (Auto) 6-10 H (0-2) /hpf U Hyaline Cast (Auto) 3-5 H (0-2) /lpf U Epithel Cells (Auto) >20 H (0-2) /hpf Urine Bacteria (Auto) 4+ H (None Seen) Diagnostic Findings Ultrasound 06/28/25 06:12 US OB <= 14 weeks fetus, US OB transvaginal HISTORY: 29 years-old Female pain acute generalized pelvic pain with COMPARISON: CT abdomen and pelvis 06/04/2025 TECHNIQUE: Multiple real-time sonographic images of the deep pelvic structures were obtained transabdominally and transvaginally assessing grayscale appearance, color and spectral flow with M-mode analysis FINDINGS: TRANSABDOMINAL: The uterus measures 8.6 x 5.6 cm. The ovaries are obscured by bowel gas. TRANSVAGINAL: Retroflexed uterus. Intrauterine gestational sac measuring 1.24 cm, 5 weeks and 3 days. This contains a 0.28 cm yolk sac. No pole identified at this time. No definite subchorionic hemorrhage or other abnormality identified. Trace nonspecific free pelvic fluid. The left ovary measures 2.4 x 1.7 x 1.8 cm. The right ovary measures 3.6 x 2.2 x 2.2 cm. Spectral analysis was not performed on the ovaries. No adnexal mass lesions identified. IMPRESSION: 1. Intrauterine gestational sac and yolk sac without pole identified at this time. Follow-up ultrasound imaging with serial quantitative beta hCG analysis is needed to confirm viability. 2. Unremarkable sonographic appearance of the ovaries. 3. Trace nonspecific free pelvic fluid. ACT 112: Negative or not required by law. The above report was generated using voice recognition software. It may contain grammatical, syntax or spelling errors. Electronically signed by: Andry Tellez M.D. 06/28/2025 9:01 AM Renal Ultrasound 06/28/25 06:12 RENAL ULTRASOUND HISTORY: left flank pain COMPARISON: CT of 06/04/2025 FINDINGS: Right kidney measures 10 x 5 cm. Left kidney measures 11 x 5 cm. There is minimal hydronephrosis at the left kidney. No hydronephrosis seen at the right kidney. There is normal Doppler flow to both kidneys. No renal calculi seen. Urinary bladder is decompressed. IMPRESSION: Minimal hydronephrosis left kidney. No renal calculi seen. There was a 3 mm calculus lower left kidney on the recent prior CT scan. ACT 112: Negative or not required by law. Electronically signed by: Elmer Campos M.D. 06/28/2025 8:48 AM Transvaginal US 06/28/25 06:12 US OB <= 14 weeks fetus, US OB transvaginal HISTORY: 29 years-old Female pain acute generalized pelvic pain with COMPARISON: CT abdomen and pelvis 06/04/2025 TECHNIQUE: Multiple real-time sonographic images of the deep pelvic structures were obtained transabdominally and transvaginally assessing grayscale appearance, color and spectral flow with M-mode analysis FINDINGS: TRANSABDOMINAL: The uterus measures 8.6 x 5.6 cm. The ovaries are obscured by bowel gas. TRANSVAGINAL: Retroflexed uterus. Intrauterine gestational sac measuring 1.24 cm, 5 weeks and 3 days. This contains a 0.28 cm yolk sac. No pole identified at this time. No definite subchorionic hemorrhage or other abnormality identified. Trace nonspecific free pelvic fluid. The left ovary measures 2.4 x 1.7 x 1.8 cm. The right ovary measures 3.6 x 2.2 x 2.2 cm. Spectral analysis was not performed on the ovaries. No adnexal mass lesions identified. IMPRESSION: 1. Intrauterine gestational sac and yolk sac without pole identified at this time. Follow-up ultrasound imaging with serial quantitative beta hCG analysis is needed to confirm viability. 2. Unremarkable sonographic appearance of the ovaries. 3. Trace nonspecific free pelvic fluid. ACT 112: Negative or not required by law. The above report was generated using voice recognition software. It may contain grammatical, syntax or spelling errors. Electronically signed by: Andry Tellez M.D. 06/28/2025 9:01 AM Supervising Physician Co-Signing Physician Notes Attending attestation Pt seen and examined in concert with Dr. Jerome. In agreement with the documented findings as noted in the resident documentation with any exceptions or additions as noted here. Somewhat improved flank and abdominal pain following hydration and pain medication administration. Tolerating POI well at bedside without reported nausea. No recent urination. VS as noted. On examination, S1/S2 nl RRR no MCG. CTAB. Abd NT/ND BS+ve WBC 11.86, Neutrophilic predominance. Cr 0.78. Concern for pyelonephritis/UTI - encourage PO hydration, low threshold to restart IV fluids. Ceftriaxone daily. Pain control w/ APAP, morphine reviewed. Trend CBC, CMP in AM. Ondansetron PRN for nausea, consider alternative if escalated requirement. - 6 wks - Ob aware, caution with additional medications Else see resident documentation as noted. Resident Activity Tracking Resident Involvement: Resident Care Provided Care Provided: [facility] Medicine
[2025-06-28] MEDS ORDERED: ONDANSETRON 4 MG OD TAB PO PRN (14:11)
[2025-06-28] MEDS ORDERED: ACETAMINOPHEN 325 MG TAB PO PRN (14:11)
[2025-06-28] MEDS: ONDANSETRON INJ 2 MG/ML 2 ML VIAL IV PRN (14:28)
[2025-06-28] MEDS: SODIUM CHLORIDE 0.9% 1,000 ML IV SCH (16:35)
--- NOTE | 2025-06-28 18:23 | OB/GYN Consultation ---
Date of Consultation June 28, 2025 Assessment & Plan (1) with uncertain viability: Blossom is a 29-year-old G3, P1 currently at 5 weeks 5 days gestational age by LMP with an intrauterine of uncertain viability favoring viable. Findings on ultrasound are consistent with expectations based on current gestational age by LMP. Denying any bleeding or related concerns. Discussed outpatient follow-up ultrasound with OB care for further evaluation of viability. Reviewed precautions around early . Will defer care of acute pyelonephritis to primary team and agree with the current antibiotic ordered. Reviewed current ordered medications and agree with currently ordered meds. We are available if any additional questions or concerns arise. (2) Pyelonephritis affecting : (3) Pyelonephritis: History of Present Illness Attending Physician: Malik Carballo MD History of Present Illness Blossom is a 29-year-old G3, P1 currently at 5 weeks 5 days gestational age based on LMP dating. Was seen in the ED for UTI symptoms and abdominal flank pain more significantly on the left side. Has been diagnosed with acute pyelonephritis versus acute renal colic favoring acute pyelonephritis based on symptoms. Pelvic ultrasound showed a single intrauterine with notable gestational sac and yolk sac without distinct pole. Ultrasound findings are consistent with expectation based on a 5-week 5-day gestation based on LMP. Denying any bleeding or obstetric concerns. I reviewed ultrasound findings and discussed the diagnosis of a intrauterine of uncertain viability. Patient already has OB care scheduled with appropriate timing. Patient is being treated for acute pyelonephritis by the medicine service currently. Allergies Allergy/AdvReac Type Severity Reaction Status Date / Time banana Allergy Severe throat Verified 06/04/25 15:23 closes, hives, throwing up shellfish derived Allergy Severe throat Verified 06/04/25 15:23 closes, hives, throwing up oxycodone AdvReac Severe Vomiting Unverified 06/04/25 15:23 Home Medications Medication Instructions Recorded Confirmed Type cetirizine 10 mg tablet (Zyrtec) 10 mg PO QPM 12/26/23 06/28/25 History esomeprazole magnesium 20 mg 20 mg PO QPM 02/05/24 06/28/25 History capsule,delayed release epinephrine 0.3 mg/0.3 mL 0.3 mg (0.3 mL) IM Q15M PRN 06/02/24 06/28/25 Rx injection, auto-injector anaphylaxis #2 ea inhalational spacing device #1 ea 06/02/24 11/18/24 Rx fluoxetine 10 mg capsule 10 mg PO QAM 04/22/25 06/28/25 History fluoxetine 20 mg capsule 20 mg PO QAM 04/22/25 06/28/25 History acetaminophen 500 mg tablet 1,000 mg PO Q6H PRN Pain 06/04/25 06/28/25 History ondansetron 4 mg disintegrating 4 mg PO Q6H PRN nausea and 06/04/25 06/28/25 Rx tablet vomiting #14 tabs vit no.95-ferrous 1 tab PO DAILY 06/28/25 06/28/25 History fumarate 28 mg-folic acid 800 mcg tablet () Patient History Medical History (Updated 06/28/25 @ 21:11 by Andry Muniz MD) Femoroacetabular impingement Labral tear of left hip joint Labral tear of right hip joint Ulcerative colitis in remission History of anesthesia reaction "when she goes to sleep, she is always panicked" Hidradenitis suppurativa Eosinophilic esophagitis hx Ovarian cyst hx Surgical History History of hip surgery (02/2025) right labral tear S/P endoscopy S/P wisdom tooth extraction S/P dilatation and curettage S/P colonoscopy H/O flexible sigmoidoscopy Family History Grandmother (Maternal) Breast cancer Maternal grandmother, maternal great grandmother Aunt Crohn's disease Ovarian cancer maternal great aunt Grandfather (Paternal) Lung disease Denies family history of Colorectal cancer Social History Smoking Status: Former smoker Tobacco Type: Cigarettes and E-cigarettes / Vaping Age Started Using Tobacco: 20; Age Quit Using Tobacco: 27; packs per day: 0.25; Second Hand Exposure: Yes; Do You Dip or Chew Tobacco: No; Hx Alcohol Use: No Hx Substance Use: No Preferred Language: Bolivian Communication Ability: Effective 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 current occupational status: unemployed Other Information That Helps Us Care for You: No Feels Safe at Home: Yes Safety Concerns: Feels Safe At This Time Assistive Devices: Glasses Results & Data Vital Signs (Past 12 Hours) Vital Signs Temp Pulse Pulse Pulse Resp BP Pulse Ox 06/28/25 15:59 36.5 C 84 15 131/85 99 06/28/25 14:30 86 18 134/75 99 06/28/25 14:11 74 19 111/76 96 06/28/25 13:39 72 17 134/75 99 06/28/25 12:00 76 18 107/72 98 06/28/25 10:19 70 06/28/25 10:00 78 17 111/65 98 06/28/25 08:00 75 18 127/79 97 O2 Del Method 06/28/25 15:59 Room Air 06/28/25 14:30 Room Air 06/28/25 14:11 Room Air 06/28/25 13:39 Room Air 06/28/25 12:00 Room Air 06/28/25 10:19 06/28/25 10:00 Room Air 06/28/25 08:00 Room Air (1) with uncertain viability Fetus number: single or unspecified fetus Qualified Code(s): O36.80X0 - with inconclusive viability, not applicable or unspecified (2) Pyelonephritis affecting Trimester: first trimester Qualified Code(s): O23.01 - Infections of kidney in , first trimester
[2025-06-28] MEDS: PROMETHAZINE 12.5 MG/50.5 ML BAG IV PRN (19:57)
[2025-06-28] MEDS: CETIRIZINE HCL 10 MG TABLET PO SCH (21:12)
--- NOTE | 2025-06-28 21:19 | History & Physical Report ---
Date of Service June 28, 2025 Assessment & Plan (1) Pyelonephritis affecting : Plan: Blossom is a 29-year-old G3, P1 currently at 5 weeks 5 days gestational age by LMP with an intrauterine of uncertain viability favoring viable. Findings on ultrasound are consistent with expectations based on current gestational age by LMP. Denying any bleeding or related concerns. Discussed outpatient follow-up ultrasound with OB care for further evaluation of viability. Reviewed precautions around early . Will defer care of acute pyelonephritis to primary team and agree with the current antibiotic ordered. Reviewed current ordered medications and agree with currently ordered meds. We are available if any additional questions or concerns arise. (2) with uncertain viability: Plan 45 minutes spent in review of history and discussion today Admission and Anticipated Discharge Date Admission Date: June 28, 2025 History of Present Illness Primary Care Provider: Melody Jerome DO Blossom is a 29-year-old G3, P1 currently at 5 weeks 5 days gestational age based on LMP dating. Was seen in the ED for UTI symptoms and abdominal flank pain more significantly on the left side. Has been diagnosed with acute pyelonephritis versus acute renal colic favoring acute pyelonephritis based on symptoms. Pelvic ultrasound showed a single intrauterine with notable gestational sac and yolk sac without distinct pole. Ultrasound findings are consistent with expectation based on a 5-week 5-day gestation based on LMP. Denying any bleeding or obstetric concerns. I reviewed ultrasound findings and discussed the diagnosis of a intrauterine of uncertain viability. Patient already has OB care scheduled with appropriate timing. Patient is being treated for acute pyelonephritis by the medicine service currently. Allergies Allergy/AdvReac Type Severity Reaction Status Date / Time banana Allergy Severe throat Verified 06/04/25 15:23 closes, hives, throwing up shellfish derived Allergy Severe throat Verified 06/04/25 15:23 closes, hives, throwing up oxycodone AdvReac Severe Vomiting Unverified 06/04/25 15:23 Home Medications Medication Instructions Recorded Confirmed Type cetirizine 10 mg tablet (Zyrtec) 10 mg PO QPM 12/26/23 06/28/25 History esomeprazole magnesium 20 mg 20 mg PO QPM 02/05/24 06/28/25 History capsule,delayed release epinephrine 0.3 mg/0.3 mL 0.3 mg (0.3 mL) IM Q15M PRN 06/02/24 06/28/25 Rx injection, auto-injector anaphylaxis #2 ea inhalational spacing device #1 ea 06/02/24 11/18/24 Rx fluoxetine 10 mg capsule 10 mg PO QAM 04/22/25 06/28/25 History fluoxetine 20 mg capsule 20 mg PO QAM 04/22/25 06/28/25 History acetaminophen 500 mg tablet 1,000 mg PO Q6H PRN Pain 06/04/25 06/28/25 History ondansetron 4 mg disintegrating 4 mg PO Q6H PRN nausea and 06/04/25 06/28/25 Rx tablet vomiting #14 tabs vit no.95-ferrous 1 tab PO DAILY 06/28/25 06/28/25 History fumarate 28 mg-folic acid 800 mcg tablet () Patient History Medical History (Updated 06/28/25 @ 21:11 by Andry Muniz MD) Femoroacetabular impingement Labral tear of left hip joint Labral tear of right hip joint Ulcerative colitis in remission History of anesthesia reaction "when she goes to sleep, she is always panicked" Hidradenitis suppurativa Eosinophilic esophagitis hx Ovarian cyst hx Surgical History History of hip surgery (02/2025) right labral tear S/P endoscopy S/P wisdom tooth extraction S/P dilatation and curettage S/P colonoscopy H/O flexible sigmoidoscopy Family History Grandmother (Maternal) Breast cancer Maternal grandmother, maternal great grandmother Aunt Crohn's disease Ovarian cancer maternal great aunt Grandfather (Paternal) Lung disease Denies family history of Colorectal cancer Social History Smoking Status: Former smoker Tobacco Type: Cigarettes and E-cigarettes / Vaping Age Started Using Tobacco: 20; Age Quit Using Tobacco: 27; packs per day: 0.25; Second Hand Exposure: Yes; Do You Dip or Chew Tobacco: No; Hx Alcohol Use: No Hx Substance Use: No Preferred Language: Montenegrin Communication Ability: Effective Employee Health Rn Required: No Beliefs That Will Affect Care: None marital status: marital status details: Malick Pappas (24) [phone] Current Living Situation: Spouse and Family Current Living Situation Comment: Lives at home with and 3 dogs. current occupational status: unemployed Other Information That Helps Us Care for You: No Feels Safe at Home: Yes Safety Concerns: Feels Safe At This Time Assistive Devices: Glasses Results & Data Vital Signs (Past 12 Hours) Vital Signs Temp Pulse Pulse Pulse Resp BP Pulse Ox 06/28/25 20:15 36.9 C 81 16 117/72 100 06/28/25 15:59 36.5 C 84 15 131/85 99 06/28/25 14:30 86 18 134/75 99 06/28/25 14:11 74 19 111/76 96 06/28/25 13:39 72 17 134/75 99 06/28/25 12:00 76 18 107/72 98 06/28/25 10:19 70 06/28/25 10:00 78 17 111/65 98 O2 Del Method 06/28/25 20:15 Room Air 06/28/25 15:59 Room Air 06/28/25 14:30 Room Air 06/28/25 14:11 Room Air 06/28/25 13:39 Room Air 06/28/25 12:00 Room Air 06/28/25 10:19 06/28/25 10:00 Room Air Coding Level of Care Code 28250 IN/OBS CONSULT LVL 3,45M Diagnoses Pyelonephritis affecting in first trimester O23.01 Trimester: first trimester with uncertain viability, single or unspecified fetus O36.80X0 Fetus number: single or unspecified fetus (1) Pyelonephritis affecting Trimester: first trimester Qualified Code(s): O23.01 - Infections of kidney in , first trimester (2) with uncertain viability Fetus number: single or unspecified fetus Qualified Code(s): O36.80X0 - with inconclusive viability, not applicable or unspecified
[2025-06-28] MEDS: PANTOprazole 40 MG/10 ML SYR IV SCH (22:13)
[2025-06-28] MEDS: ACETAMINOPHEN 1,000 MG/100 ML VIAL IV PRN (22:57)
[2025-06-29] MEDS: MoRPHine SULFATE 4 MG/ML 1 ML CARP\\VIAL IV PRN ×2 (02:11→10:10)
--- NOTE | 2025-06-29 07:22 | Hospitalist Progress Note ---
Date of Service June 29, 2025 Assessment & Plan (1) Pyelonephritis: (2) First trimester : (3) Anxiety and depression: Plan Pt is a 29 yo female with PMH of UC, depression/anxiety, GERD, intermittent asthma, and currently 6 weeks who who was admitted for concern for concern for complicated UTI/pyelonephritis. #Complicated UTI/pyelonephritis #First trimester UA shows evidence of UTI along pt pt report of symptoms that started 2-3 days ago. Pt now having significant left> right lower abdominal and back pain and findings of mild hydronephrosis on US. Cr with increase from 0.78 to 1.12 today and WBC with mild increase despite IV abx. Considering pyelonephritis vs nephrolithiasis. - Consider MRI to assess for nephrolithiasis to limit radiation exposure due to - Continue IV ceftriaxone 2g q24h with plan to transition to oral abx at DC - IV NSS at 100mls increased to 125mls, will consider and 1L if vomiting continues - Tylenol 1000mg q8h prn for pain. - If pain is uncontrolled, has IV morphine 4mg q3h for severe pain. - Ordered IV zofran 4mg prn q6h for nausea, consider Reglan if continues with severe nausea - OB consult completed- no further recommendations - Continue vitamin Chronic conditions: - Anxiety/depression- continue fluoxetine 30mg daily - GERD- Continue pantoprazole 40mg Qpm - Seasonal allergies- Continue Zyrtec 10 mg qd Dispo- observation in med/surg Diet- regular as tolerated DVT prophylaxis- none, pt is mobile Code- full Admission and Anticipated Discharge Date Admission Date: June 28, 2025 Supervising Physician Co-Signing Physician Notes Attending attestation Pt seen and examined in concert with Dr. Jerome. In agreement with the documented findings as noted in the resident documentation with any exceptions or additions as noted here. Improved pain control following adjustment noted in plan after persistent pain, nausea, vomiting initially this AM. Tolerating POI better. Did have single episode of urination w/ hematuria. VS as noted. On examination, S1/S2 nl RRR no MCG. CTAB. Abd NT/ND BS+ve Concern for pyelonephritis/UTI vs. nephrolithiasis - escalate pain management to morphine 4mg q3h. IVF at 125cc/hr as noted. Not a candidate for CT w/ , MRI would not show stone if present, US completed w/ results as noted. Ceftriaxone daily. Trend CBC, CMP in AM. Antiemetic therapy adjusted to Reglan with benefit. - 6 wks - Ob aware, caution with additional medications Else see resident documentation as noted. Subjective Pt reports having continued high levels of left sided low back and LLQ pain that were not controlled very well by current pain medications. She also continues with severe nausea and vomiting and unable to keep liquids down. No appetite. Minimal urination over night. Pt denies CP, SOB, diarrhea, hematuria or headache Review of Systems Review of Systems: As per HPI Physical Exam Physical Exam: Gen: NAD, but anxious HENT: Normocephalic, atraumatic. Trachea midline, no thyromegaly Cardio: RRR, no murmurs or clicks. No LE edema Resp: CTAB, Equal bilateral chest rise, no increased work of breathing GI: Non distended, soft, tender at LLQ, normoactive bowel sounds MSK: Moving all 4 extremities independently. General tenderness at bilateral lumbar region. Skin: Dry, of normal skin tone, no rashes noted on exposed skin Neuro: A& O x 3, normal affect Results & Data Results & Data Vital Signs (Past 12 Hours) Vital Signs Temp Pulse Resp BP Pulse Ox O2 Del Method 06/28/25 20:15 36.9 C 81 16 117/72 100 Room Air Resident Activity Tracking Resident Involvement: Resident Care Provided Care Provided: Adult Hospital Medicine
[2025-06-29 07:28] LABS: Hematocrit (blood only) 35.3 % (37.0-47.0); Hemoglobin 11.4 g/dl (12.0-16.0); Mean Corpuscular Hemoglobin 28.6 pg (25.0-34.0); Mean Corpuscular Volume 88.7 fL (80.0-100.0); Platelet Count 306 K/uL (130-400); RDW Standard Deviation 41.8 fL (36.4-46.3); Red Blood Count 3.98 M/uL (4.20-5.40); White Blood Count 12.84 K/ul (4.8-10.8)
[2025-06-29] MEDS: cefTRIAXone SODIUM 2,000 MG/50 ML BAG IV SCH (07:38)
[2025-06-29 07:48] LABS: Anion Gap 8.0 (3-11); Blood Urea Nitrogen 11.0 mg/dl (6-23); Calcium 8.3 mg/dl (8.6-10.3); Carbon Dioxide 22.0 mmol/L (21-32); Chloride 108.0 mmol/L (98-107); Creatinine Clr Calc Pharmacy 64.0 ml/min; Glucose 88.0 mg/dl (70-99(Fasting)); Potassium 3.8 mmol/L (3.5-5.1); Sodium 138.0 mmol/L (136-145)
[2025-06-29] MEDS ORDERED: MoRPHine SULFATE 2 MG/ML CARP IV PRN (10:03)
[2025-06-29] MEDS: PRENATAL VITAMIN 1 TAB PO SCH (12:10)
[2025-06-29] MEDS: METOCLOPRAMIDE HCL INJ 5 MG/ML 2 ML VIAL IV PRN (12:39)
[2025-06-29] MEDS: SODIUM CHLORIDE 0.9% 1,000 ML IV SCH (13:21)
[2025-06-29] MEDS: ACETAMINOPHEN 1,000 MG/100 ML VIAL IV SCH (15:55)
[2025-06-30] MEDS: diphenhydrAMINE 50 MG/ML VIAL IV STA (02:32)
--- NOTE | 2025-06-30 07:23 | Hospitalist Progress Note ---
Date of Service June 30, 2025 Assessment & Plan (1) Pyelonephritis: (2) First trimester : (3) Anxiety and depression: Plan Pt is a 29 yo female with PMH of UC, depression/anxiety, GERD, intermittent asthma, and currently 6 weeks who who was admitted for concern for concern for complicated UTI/pyelonephritis vs nephrolithiasis. Unable to image with CT due to 1st trimester . #Complicated UTI/pyelonephritis #First trimester UA shows evidence of UTI along pt pt report of symptoms that started 2-3 days ago. Pt now having significant left lower abdominal and back pain and findings of mild hydronephrosis on US in ED. Pain is not well controlled with scheduled tylenol and prn IV morphine. New onset hematuria since last night. WBC are trending upward despite IV abx, urine culture grew pin point, pending rein tubation. Considering pyelonephritis vs nephrolithiasis. CTAB from 04/22/25 demonstrated 4mm calculus at upper pole of left kidney. Spoke with radiologist regarding use of MRI for diagnosis of nephrolithiasis. MRI is not sufficient for imaging. - Ordered repeat renal US Pending results, consider formal consult with urology - Continue IV ceftriaxone 2g q24h - Continue IV NSS at 125mls - Tylenol 1000mg q8h prn for pain. - Continue IV morphine 4mg q3h for severe pain. - Continue IV zofran 4mg prn q6h, IV Reglan 10mg , or IV Benadryl 25mg for nausea - OB consult completed- no further recommendations - Continue vitamin Chronic conditions: - Anxiety/depression- continue fluoxetine 30mg daily - GERD- Continue pantoprazole 40mg Qpm - Seasonal allergies- Continue Zyrtec 10 mg qd Dispo- observation in med/surg Diet- regular as tolerated DVT prophylaxis- none, pt is mobile Code- full Admission and Anticipated Discharge Date Admission Date: June 28, 2025 Supervising Physician Co-Signing Physician Notes ATTESTATION I also saw the patient and confirmed snow portions of the history and exam. I agree with the impression and plan in the resident documentation, and as summarized below. Patient unfortunately with increased pain this morning. EXAM 115/67, 97, 16, 37.2, 97% room air Mildly tearful. CV regular Lungs with non labored respirations DATA Labs WBC 15.56 HgB 11.1 Sodium 133, potassium 4.0 BUN 8, Cr 1.03 Micro Urine culture collected 06/28/2025 shows pinpoint growth, incubating IMPRESSION & PLAN Pyelonephritis versus occult renal lithiasis First trimester Resume IV fluids Repeat ultrasound today to assess for change in degree of hydronephrosis Radiology did not feel MRI would be useful Patient defers KUB Low-dose CT contraindicated in first trimester Additional per resident documentation Subjective Pt reports last night in early evening, she was noting improvement in pain and nausea, but after 8pm, pain worsened. She is finding morphine is no longer helping pain. She states as pain increases, nausea and vomiting increases. She is having ricardo blood following urination on toilet paper. Denies blood in commode. Pt is not eating due to nausea. Pt denies CP, SOB, diarrhea, or headache Review of Systems Review of Systems: As per HPI Physical Exam Physical Exam: Gen: NAD, but anxious and tearful HENT: Normocephalic, atraumatic. Trachea midline, no thyromegaly Cardio: RRR, no murmurs or clicks. No LE edema Resp: CTAB, Equal bilateral chest rise, no increased work of breathing GI: Non distended, soft, tender at LLQ, normoactive bowel sounds. Severe CVA tenderness MSK: Moving all 4 extremities independently. General tenderness at bilateral lumbar region. Skin: Dry, of normal skin tone, no rashes noted on exposed skin Neuro: A& O x 3, normal affect Results & Data Results & Data Vital Signs (Past 12 Hours) Vital Signs Temp Pulse Resp BP Pulse Ox O2 Del Method 06/29/25 22:56 36.8 C 99 H 18 145/86 H 98 Room Air Resident Activity Tracking Resident Involvement: Resident Care Provided Care Provided: Adult Hospital Medicine
[2025-06-30 07:57] LABS: Hematocrit (blood only) 33.5 % (37.0-47.0); Hemoglobin 11.1 g/dl (12.0-16.0); Mean Corpuscular Hemoglobin 29.5 pg (25.0-34.0); Mean Corpuscular Volume 89.1 fL (80.0-100.0); Platelet Count 303 K/uL (130-400); RDW Standard Deviation 41.9 fL (36.4-46.3); Red Blood Count 3.76 M/uL (4.20-5.40); White Blood Count 15.56 K/ul (4.8-10.8)
[2025-06-30 08:15] LABS: Anion Gap 7.0 (3-11); Blood Urea Nitrogen 8.0 mg/dl (6-23); Calcium 8.5 mg/dl (8.6-10.3); Carbon Dioxide 21.0 mmol/L (21-32); Chloride 105.0 mmol/L (98-107); Creatinine Clr Calc Pharmacy 69.6 ml/min; Glucose 104.0 mg/dl (70-99(Fasting)); Potassium 4.0 mmol/L (3.5-5.1); Sodium 133.0 mmol/L (136-145)
[2025-06-30] MEDS: SODIUM CHLORIDE 0.9% 1,000 ML IV SCH (09:49)
--- NOTE | 2025-06-30 12:53 | Ultrasound Report ---
RENAL ULTRASOUND HISTORY: Pyelo vs nephrolithiasis COMPARISON: 06/28/2025 FINDINGS: Right kidney measures 12 x 5 cm. Left kidney measures 12 x 5 cm. There is Doppler flow to b oth kidneys. There is mild hydronephrosis at the left kidney. No hydronephrosis at the right kidney. No renal calculi seen. There is a possible 6 mm calculus distal left ureter. There is trace free flui d between the right kidney and the liver. Urinary bladder is grossly unremarkable. IMPRESSION: 1. Mild left hydronephrosis. No renal calculi seen. There is a possible 6 mm calculus distal left ure ter. 2. Trace free fluid adjacent to the right kidney. ACT 112: Negative or not required by law. Electronically signed by: Elmer Campos M.D. 06/30/2025 12:51 PM
[2025-06-30] MEDS: MoRPHine SULFATE 4 MG/ML 1 ML CARP\\VIAL IV PRN (13:35)
--- NOTE | 2025-06-30 14:24 | Urology Consultation ---
Date of Consultation June 30, 2025 Assessment & Plan (1) Nephrolithiasis: 29-year-old female who is approximately 6 weeks admitted for complicated UTI, nephrolithiasis. Patient is currently afebrile, hemodynamically stable Lab work reviewedcreatinine 1.03, WBC 15.56, hemoglobin 11.1 Urinalysis on arrival was suspicious for infection vs contamination (>20 epithelials) Urine culture demonstrated lactobacillus She remains on empiric antibiotics Her symptoms and imaging suggest that she may be passing a kidney stone Renal ultrasound shows mild left hydronephrosis, possible left distal ureteral stone Prior CT scan from May 2025 is reviewed and showed 3 mm left renal stone We discussed that she has a good probability of passing her stone given suspected size of 3 mm stone Given that she is early in , recommend continue with trial of passage and pain management There is significant risk to mother and fetus to do any surgical intervention in early We would avoid any surgical intervention unless febrile UTI/sepsis or renal failure Continue supportive care and pain management per hospital medicine service Recommend liberal hydration and strain all urine We can arrange outpatient follow-up with our service in 2 to 3 months Case reviewed and discussed with Dr. Ramirez will sign off, please contact our service with any acute changes to clinical status History of Present Illness Reason for Consultation: L Nephrolithiasis, 6 weeks Attending Physician: Tanvir Vogt DO History of Present Illness This is a 29-year-old female with past medical history of nephrolithiasis and currently approximately 6 weeks who presented to the emergency department on 06/28/2025 for evaluation of left-sided flank and abdominal pain for a few days prior to arrival. On arrival to ED, she was afebrile and hemodynamically stable. Lab work showed WBC 11.86, hemoglobin 12.1, creatinine 0.78. Urinalysis showed turbid urine, 1+ LE, 21-50 WBC, 6-10 RBC, >20 epithelials and 4+ bacteria. Workup included renal ultrasound which showed minimal hydronephrosis of left kidney. No renal calculi seen. ED course: IV fluids, ceftriaxone, morphine, ondansetron. She was admitted for complicated UTI in first trimester . Urology is consulted today for kidney stone and . She had a repeat renal ultrasound today which showed mild left hydronephrosis. No renal calculi seen. Radiology noted a possible 6 mm distal left ureteral calculus. Lab work todaycreatinine 1.03, WBC 15.56, hemoglobin 11.1 Urine culture showed lactobacillus. Patient seen and examined at bedside this morning. She reports a history of kidney stones with history of spontaneous passage. She reports left flank and abdominal pain started a few days prior to arrival. Continues to have left- sided pain that radiates from her flank to her abdomen. She reports some nausea. She is voiding spontaneously. No dysuria. She noted hematuria yesterday. Subjectively feels warm/cold at times, but denies fever or chills. Allergies Allergy/AdvReac Type Severity Reaction Status Date / Time banana Allergy Severe throat Verified 06/04/25 15:23 closes, hives, throwing up shellfish derived Allergy Severe throat Verified 06/04/25 15:23 closes, hives, throwing up oxycodone AdvReac Severe Vomiting Unverified 06/04/25 15:23 Home Medications Medication Instructions Recorded Confirmed Type cetirizine 10 mg tablet (Zyrtec) 10 mg PO QPM 12/26/23 06/28/25 History esomeprazole magnesium 20 mg 20 mg PO QPM 02/05/24 06/28/25 History capsule,delayed release epinephrine 0.3 mg/0.3 mL 0.3 mg (0.3 mL) IM Q15M PRN 06/02/24 06/28/25 Rx injection, auto-injector anaphylaxis #2 ea inhalational spacing device #1 ea 06/02/24 11/18/24 Rx fluoxetine 10 mg capsule 10 mg PO QAM 04/22/25 06/28/25 History fluoxetine 20 mg capsule 20 mg PO QAM 04/22/25 06/28/25 History acetaminophen 500 mg tablet 1,000 mg PO Q6H PRN Pain 06/04/25 06/28/25 History ondansetron 4 mg disintegrating 4 mg PO Q6H PRN nausea and 06/04/25 06/28/25 Rx tablet vomiting #14 tabs vit no.95-ferrous 1 tab PO DAILY 06/28/25 06/28/25 History fumarate 28 mg-folic acid 800 mcg tablet () Patient History Medical History Femoroacetabular impingement Labral tear of left hip joint Labral tear of right hip joint Ulcerative colitis in remission History of anesthesia reaction "when she goes to sleep, she is always panicked" Hidradenitis suppurativa Eosinophilic esophagitis hx Ovarian cyst hx Surgical History History of hip surgery (02/2025) right labral tear S/P endoscopy S/P wisdom tooth extraction S/P dilatation and curettage S/P colonoscopy H/O flexible sigmoidoscopy Family History Grandmother (Maternal) Breast cancer Maternal grandmother, maternal great grandmother Aunt Crohn's disease Ovarian cancer maternal great aunt Grandfather (Paternal) Lung disease Denies family history of Colorectal cancer Social History Smoking Status: Former smoker Tobacco Type: Cigarettes and E-cigarettes / Vaping Age Started Using Tobacco: 20; Age Quit Using Tobacco: 27; packs per day: 0.25; Second Hand Exposure: Yes; Do You Dip or Chew Tobacco: No; Hx Alcohol Use: No Hx Substance Use: No Preferred Language: Greenlandic Communication Ability: Effective Front Office Coordinator Required: No Beliefs That Will Affect Care: None marital status: marital status details: Malick Pappas (24) [phone] Current Living Situation: Spouse and Family Current Living Situation Comment: Lives at home with and 3 dogs. current occupational status: unemployed Feels Safe at Home: Yes Assistive Devices: None Review of Systems Review of Systems: All systems reviewed & are unremarkable except as noted in HPI & below Physical Exam Constitutional: well developed and well nourished; no acute distress Respiratory: normal respiratory effort; no respiratory distress and no labored breathing Gastrointestinal (Abdomen): Inspection/Auscultation: abdomen normal to inspection Musculoskeletal: Head/Neck/Chest: normocephalic Neurologic: moves all extremities and awake Psychiatric: Orientation: alert and oriented x 3 Results & Data Vital Signs (Past 12 Hours) Vital Signs Temp Pulse Resp BP Pulse Ox O2 Del Method 06/30/25 07:00 37.2 C 97 H 16 115/67 97 Room Air PG Care Time/CCT Total # of Minutes Spent Total Time Spent with Patient: Total time spent is greater than 50% in coordination of care (as documented) at patient's floor/unit and/or counseling patient: Coding Level of Care Code 32983 IN/OBS CONSULT LVL 4,60M Diagnoses Nephrolithiasis N20.0
--- NOTE | 2025-07-01 07:48 | Hospitalist Progress Note ---
Date of Service July 01, 2025 Assessment & Plan (1) Pyelonephritis: (2) First trimester : (3) Anxiety and depression: (4) Nephrolithiasis: Plan Pt is a 29 yo female with PMH of UC, depression/anxiety, GERD, intermittent asthma, and currently 6 weeks who who was admitted due concern for complicated UTI/pyelonephritis vs nephrolithiasis. Unable to image with CT due to 1st trimester . Repeat US and continued pain and symptoms more suggestive of nephrolithiasis #Complicated UTI/pyelonephritis/Nephrolithiasis #First trimester UA show in ED showed evidence of UTI, however urine culture returned with contamination of normal gene . Pt continues significant left lower abdominal and back pain and findings of mild hydronephrosis on US in ED and on repeat US. CTAB from 04/22/25 demonstrated 4mm calculus at upper pole of left kidney. Repeat renal US showed calculus in distal left ureter. Pain is not well controlled with scheduled tylenol and prn IV morphine. Onset hematuria started 06/29. WBC is down trending at 14.6 today. Awaiting calculus to pass. - Consulted urology, appreciate recommendations Likely calculus is 3-4 mm per imaging previous as US measurements are less accurate than CT Continue Supportive care Continue straining urine Can follow up outpatient in 2-3 months with urology - Continue IV ceftriaxone 2g q24h - Continue IV NSS at 125mls - Tylenol 1000mg q8h prn for pain. - Continue IV morphine 4mg q2h for severe pain. - Continue IV zofran 4mg prn q6h, IV Reglan 10mg q6h, or IV Benadryl 25mg q8h for nausea - OB consult completed 06/29- no further recommendations - Continue vitamin Chronic conditions: - Anxiety/depression- continue fluoxetine 30mg daily - GERD- Continue pantoprazole 40mg Qpm - Seasonal allergies- Continue Zyrtec 10 mg qd Dispo- med/surg Diet- regular as tolerated DVT prophylaxis- none, pt is mobile Code- full Admission and Anticipated Discharge Date Admission Date: June 30, 2025 Supervising Physician Co-Signing Physician Notes ATTESTATION I also saw the patient and confirmed snow portions of the history and exam. I agree with the impression and plan in the resident documentation, and as summarized below. Increased pain and nausea overnight, but better this AM. Reports that pain is more distal now into the right suprapubic area. EXAM VSS CV regular Lungs with non labored respirations DATA Labs WBC 14.6 HgB 10.7 Sodium 132, potassium 3.9 BUN 7, Cr 0.96 Micro Urine culture collected 06/28/2025 shows lactobacillus gasseri Imaging Mild left hydronephrosis Suspect calculus distal left ureter IMPRESSION & PLAN Pyelonephritis versus occult renal lithiasis First trimester Continue IV fluids and pain control Hopeful that this will pass spontaneously Urology consult appreciated Additional per resident documentation Subjective Pt reports last night in early evening, she was noting improvement in pain and nausea, but after 8pm, pain worsened. She is finding morphine is no longer he lping pain. She states as pain increases, nausea and vomiting increases. She is having ricardo blood following urination on toilet paper. Denies blood in commode. Pt is not eating due to nausea. Pt denies CP, SOB, diarrhea, or headache Review of Systems Review of Systems: As per HPI Physical Exam Physical Exam: Gen: Appears uncomfortable laying in bed and anxious about lack of progress in passing kidney stone HENT: Normocephalic, atraumatic. Trachea midline, no thyromegaly Cardio: RRR, no murmurs or clicks. No LE edema Resp: CTAB, Equal bilateral chest rise, no increased work of breathing GI: Mild abdominal distension though soft, continues with tenderness at LLQ, normoactive bowel sounds. Decreased CVA tenderness MSK: Moving all 4 extremities independently. General tenderness at bilateral lumbar region. Skin: Dry, of normal skin tone, no rashes noted on exposed skin Neuro: A& O x 3, anxious affect. No focal deficit Results & Data Results & Data Vital Signs (Past 12 Hours) Vital Signs Temp Pulse Resp BP Pulse Ox O2 Del Method 06/30/25 23:43 36.9 C 88 16 119/71 97 Room Air Resident Activity Tracking Resident Involvement: Resident Care Provided Care Provided: Adult Hospital Medicine
[2025-07-01 08:31] LABS: Hematocrit (blood only) 32.2 % (37.0-47.0); Hemoglobin 10.7 g/dl (12.0-16.0); Mean Corpuscular Hemoglobin 29.1 pg (25.0-34.0); Mean Corpuscular Volume 87.5 fL (80.0-100.0); Platelet Count 311 K/uL (130-400); RDW Standard Deviation 41.7 fL (36.4-46.3); Red Blood Count 3.68 M/uL (4.20-5.40); White Blood Count 14.60 K/ul (4.8-10.8)
[2025-07-01 08:48] LABS: Anion Gap 7.0 (3-11); Blood Urea Nitrogen 7.0 mg/dl (6-23); Calcium 8.6 mg/dl (8.6-10.3); Carbon Dioxide 21.0 mmol/L (21-32); Chloride 104.0 mmol/L (98-107); Creatinine Clr Calc Pharmacy 74.7 ml/min; Glucose 102.0 mg/dl (70-99(Fasting)); Potassium 3.9 mmol/L (3.5-5.1); Sodium 132.0 mmol/L (136-145)
[2025-07-01] MEDS: SODIUM CHLORIDE 0.9% 1,000 ML IV SCH (10:20)
[2025-07-01] MEDS: diphenhydrAMINE 50 MG/ML VIAL IV PRN (16:19)
--- NOTE | 2025-07-02 07:35 | Hospitalist Progress Note ---
Date of Service July 02, 2025 Assessment & Plan (1) Pyelonephritis: (2) First trimester : (3) Anxiety and depression: (4) Nephrolithiasis: Plan Pt is a 29 yo female with PMH of UC, depression/anxiety, GERD, intermittent asthma, and currently 6 weeks who who was admitted due concern for complicated UTI/pyelonephritis vs nephrolithiasis. Unable to image with CT due to 1st trimester . Repeat US and continued pain and symptoms more suggestive of nephrolithiasis #Complicated UTI/pyelonephritis/Nephrolithiasis #First trimester Pt continues with severe left flank and LQ pain as well as absence of evidence that calculus has passed. Pain is not adequately controlled with IV tylenol and IV morphine on frequent basis. After shared decision making and pt acknowledgment of risks to her , pt has opted to trial NSAIDs in conjunction with IV tylenol for her pain. - Continue IV ceftriaxone 2g q24h, last dose 07/03 - Continue IV NSS at 125mls - Tylenol 1000mg q8h prn for pain. - Started toradol 10mg q6h prn - Continue IV morphine 4mg q6h for severe pain. - Continue IV zofran 4mg prn q6h, IV Reglan 10mg q6h, or IV Benadryl 25mg q8h for nausea - Consulted urology, appreciate recommendations Likely calculus is 3-4 mm per imaging previous as US measurements are less accurate than CT Continue Supportive care Continue straining urine Can follow up outpatient in 2-3 months with urology - OB consult completed 06/29- no further recommendations - Continue vitamin Chronic conditions: - Anxiety/depression- continue fluoxetine 30mg daily - GERD- Continue pantoprazole 40mg Qpm - Seasonal allergies- Continue Zyrtec 10 mg qd Dispo- med/surg Diet- regular as tolerated DVT prophylaxis- none, pt is mobile Code- full Admission and Anticipated Discharge Date Admission Date: June 30, 2025 Supervising Physician Co-Signing Physician Notes ATTESTATION I also saw the patient and confirmed snow portions of the history and exam. I agree with the impression and plan in the resident documentation, and as summarized below. Patient would like to trial NSAID. Discussed risks of NSAIDs relative to each trimester - and she would like to trial. She is really not getting much relief with morphine despite increased frequency in dosing. A short trial of NSAIDs - anticipating that she will pass the stone in the next 24-48 hours - reasonable at this point in the first trimester. EXAM VSS. Remains afebrile. 99% room air. CV regular Lungs with non labored respirations DATA Labs WBC 13.18 HgB 10.8 Sodium 135, potassium 3.7 BUN 6, Cr 0.79 Micro Urine culture collected 06/28/2025 shows lactobacillus gasseri Imaging Mild left hydronephrosis Suspect calculus distal left ureter IMPRESSION & PLAN Pyelonephritis versus occult renal lithiasis First trimester Continue IV fluids and pain control; NSAID trial as discussed Hopeful that this will pass spontaneously Urology consult appreciated Additional per resident documentation Subjective Pt reports continued with increase left sided flank and LLQ pain today. Pt states tylenol improves pain for approx 1-2 hours and morphine helps for approx 20 min. Nausea and vomiting is somewhat improved as she has been able to some drink water and tried some dry cereal this morning. She has not seen anything in her urine yet. Pt would like to discuss use of an alternative pain medication, the current regimen is not providing enough relief to allow for sleep. Pt would like to try an NSAID. We discussed risks to her including structural deformities. Pt verbalized understanding and agreed on trial of NSAIDs to improved pain control. Pt denies CP, SOB, diarrhea, or headache Review of Systems Review of Systems: As per HPI Physical Exam Physical Exam: Gen: Appears uncomfortable laying in bed and anxious about lack of progress in passing kidney stone HENT: Normocephalic, atraumatic. Trachea midline, no thyromegaly Cardio: RRR, no murmurs or clicks. No LE edema Resp: CTAB, Equal bilateral chest rise, no increased work of breathing GI: Mild abdominal distension though soft, continues with tenderness at LLQ, normoactive bowel sounds. MSK: Moving all 4 extremities independently. General tenderness at bilateral lumbar region. Skin: Dry, of normal skin tone, no rashes noted on exposed skin Neuro: A& O x 3, anxious affect. No focal deficit Results & Data Results & Data Vital Signs (Past 12 Hours) Vital Signs Temp Pulse Resp BP Pulse Ox O2 Del Method 07/02/25 07:05 36.8 C 87 18 123/77 99 Room Air 07/01/25 22:17 36.9 C 94 H 12 107/66 97 Room Air Resident Activity Tracking Resident Involvement: Resident Care Provided Care Provided: Adult Hospital Medicine
[2025-07-02 07:39] LABS: Hematocrit (blood only) 31.5 % (37.0-47.0); Hemoglobin 10.8 g/dl (12.0-16.0); Mean Corpuscular Hemoglobin 30.3 pg (25.0-34.0); Mean Corpuscular Volume 88.2 fL (80.0-100.0); Platelet Count 307 K/uL (130-400); RDW Standard Deviation 42.2 fL (36.4-46.3); Red Blood Count 3.57 M/uL (4.20-5.40); White Blood Count 13.18 K/ul (4.8-10.8)
[2025-07-02] MEDS: SODIUM CHLORIDE 0.9% 1,000 ML IV SCH (07:48)
[2025-07-02 07:59] LABS: Anion Gap 6.0 (3-11); Blood Urea Nitrogen 6.0 mg/dl (6-23); Calcium 8.7 mg/dl (8.6-10.3); Carbon Dioxide 25.0 mmol/L (21-32); Chloride 104.0 mmol/L (98-107); Creatinine Clr Calc Pharmacy 90.7 ml/min; Glucose 104.0 mg/dl (70-99(Fasting)); Potassium 3.7 mmol/L (3.5-5.1); Sodium 135.0 mmol/L (136-145)
[2025-07-02] MEDS ORDERED: MoRPHine SULFATE 4 MG/ML 1 ML CARP\\VIAL IV PRN ×2 (11:32→16:09)
[2025-07-02] MEDS: KETOROLAC TROMETHAMINE 15 MG/ML VIAL IV PRN ×2 (11:58→20:35)
[2025-07-02] MEDS: ACETAMINOPHEN 1,000 MG/100 ML VIAL IV PRN (16:14)
[2025-07-03 07:00] LABS: Hematocrit (blood only) 29.2 % (37.0-47.0); Hemoglobin 9.6 g/dl (12.0-16.0); Mean Corpuscular Hemoglobin 29.0 pg (25.0-34.0); Mean Corpuscular Volume 88.2 fL (80.0-100.0); Platelet Count 302 K/uL (130-400); RDW Standard Deviation 42.9 fL (36.4-46.3); Red Blood Count 3.31 M/uL (4.20-5.40); White Blood Count 8.48 K/ul (4.8-10.8)
--- NOTE | 2025-07-03 07:18 | Hospitalist Progress Note ---
Date of Service July 03, 2025 Assessment & Plan (1) Pyelonephritis: (2) First trimester : (3) Anxiety and depression: (4) Nephrolithiasis: Plan Pt is a 29 yo female with PMH of UC, depression/anxiety, GERD, intermittent asthma, and currently 6 weeks who who was admitted due concern for complicated UTI/pyelonephritis vs nephrolithiasis. Unable to image with CT due to 1st trimester . Repeat US and continued pain and symptoms more suggestive of nephrolithiasis #Complicated UTI/pyelonephritis/Nephrolithiasis #First trimester Pt with adequate pain control using alternating tylenol and toradol. Pt may also be passing calculus with symptoms of lower abdominal pain and appearance of urine. - Continue IV ceftriaxone 2g q24h, last dose 07/03 - Continue IV NSS at 125mls x 1 bag - Tylenol 1000mg q8h prn for pain. - Continue toradol 10mg q8h prn - Continue IV morphine 4mg q6h for severe pain. - Continue IV zofran 4mg prn q6h, IV Reglan 10mg q6h, or IV Benadryl 25mg q8h for nausea - Consulted urology, appreciate recommendations Likely calculus is 3-4 mm per imaging previous as US measurements are less accurate than CT Continue Supportive care Continue straining urine Can follow up outpatient in 2-3 months with urology - OB consult completed 06/29- no further recommendations - Continue vitamin Chronic conditions: - Anxiety/depression- continue fluoxetine 30mg daily - GERD- Continue pantoprazole 40mg Qpm - Seasonal allergies- Continue Zyrtec 10 mg qd Dispo- med/surg Diet- regular as tolerated DVT prophylaxis- none, pt is mobile Code- full Admission and Anticipated Discharge Date Admission Date: June 30, 2025 Subjective Started IV toradol yesterday for pain control, which seemed to improve pt's symptoms significantly. This morning, pt reports pain is well controlled with IV tylenol and IV toradol alternating every 4 hours. Pain is more concentrated at lower abdomen/bladder. Nausea is better in controlled, appetite has returned this morning. Pt noted difficulty sleeping last night. She continues with increased in urinary frequency, but urine has a "manjinder appearance" per pt report. Pt denies CP, SOB, diarrhea, or headache Review of Systems Review of Systems: As per HPI Physical Exam Physical Exam: Gen: NAD, no visible anxiety HENT: Normocephalic, atraumatic. Trachea midline, no thyromegaly Cardio: RRR, no murmurs or clicks. No LE edema Resp: CTAB, Equal bilateral chest rise, no increased work of breathing GI: Mild abdominal distension though soft, continues with tenderness suprapubic, normoactive bowel sounds. MSK: Moving all 4 extremities independently. General tenderness at bilateral lumbar region. Skin: Dry, of normal skin tone, no rashes noted on exposed skin Neuro: A& O x 3, anxious affect. No focal deficit Results & Data Results & Data Vital Signs (Past 12 Hours) Vital Signs Temp Pulse Resp BP Pulse Ox O2 Del Method 07/02/25 23:03 37.3 C 82 18 109/68 98 Room Air
[2025-07-03 07:24] LABS: Anion Gap 4.0 (3-11); Blood Urea Nitrogen 5.0 mg/dl (6-23); Calcium 8.3 mg/dl (8.6-10.3); Carbon Dioxide 27.0 mmol/L (21-32); Chloride 107.0 mmol/L (98-107); Creatinine Clr Calc Pharmacy 125.8 ml/min; Glucose 91.0 mg/dl (70-99(Fasting)); Potassium 3.5 mmol/L (3.5-5.1); Sodium 138.0 mmol/L (136-145)
[2025-07-03] MEDS: INFLUENZA VACC TS2025-26(6m+)/PF (IIV3) 0.5mL Syr IM ONE (08:14)
[2025-07-03] MEDS: SODIUM CHLORIDE 0.9% 1,000 ML IV SCH (10:00)
[2025-07-03 13:14] VITALS: BP 113/74; PULSE 84; RESP 16; TEMP 97.5; O2SAT 98
--- NOTE | 2025-07-03 13:50 | Discharge Summary ---
Date of Service July 03, 2025 Admission HPI Per Admitting Provider Blossom is a 29-year-old G3, P1 currently at 5 weeks 5 days gestational age based on LMP dating. Was seen in the ED for UTI symptoms and abdominal flank pain more significantly on the left side. Has been diagnosed with acute pyelonephritis versus acute renal colic favoring acute pyelonephritis based on symptoms. Pelvic ultrasound showed a single intrauterine with notable gestational sac and yolk sac without distinct pole. Ultrasound findings are consistent with expectation based on a 5-week 5-day gestation based on LMP. Denying any bleeding or obstetric concerns. I reviewed ultrasound findings and discussed the diagnosis of a intrauterine of uncertain viability. Patient already has OB care scheduled with appropriate timing. Patient is being treated for acute pyelonephritis by the medicine service currently. Principal Diagnosis Complicated UTI/nephrolithiasis Discharge Exam Gen: NAD, resting comfortably in bed HENT: Normocephalic, atraumatic. Trachea midline, no thyromegaly Cardio: RRR, no murmurs or clicks. No LE edema Resp: CTAB, Equal bilateral chest rise, no increased work of breathing GI: Mild abdominal distension though soft, continues with tenderness suprapubic, normoactive bowel sounds. MSK: Moving all 4 extremities independently. General tenderness at bilateral lumbar region. Skin: Dry, of normal skin tone, no rashes noted on exposed skin Neuro: A& O x 3. No focal deficit Discharge Data Allergies Allergy/AdvReac Type Severity Reaction Status Date / Time banana Allergy Severe throat Verified 06/04/25 15:23 closes, hives, throwing up shellfish derived Allergy Severe throat Verified 06/04/25 15:23 closes, hives, throwing up oxycodone AdvReac Severe Vomiting Unverified 06/04/25 15:23 Consultations 06/28/25 10:28 ED Decision to Admit Stat 06/28/25 14:11 Consult Obstetrics Routine 06/30/25 13:06 Consult Urology Routine Ordered Studies 06/28/25 06:12 US OB <= 14 weeks fetus Stat US OB transvaginal Stat US renal/blad retro comp Stat 06/30/25 09:43 US Renal Bladder [US renal/blad retro comp] Routine Hospital Course (1) Pyelonephritis: (2) First trimester : (3) Anxiety and depression: (4) Nephrolithiasis: Plan Pt is a 29 yo female with PMH of UC, depression/anxiety, GERD, intermittent asthma, and currently 6 weeks who who was admitted due concern for complicated UTI/pyelonephritis vs nephrolithiasis. Unable to image with CT due to 1st trimester . Repeat US and continued pain and symptoms more suggestive of nephrolithiasis #Complicated UTI/pyelonephritis/Nephrolithiasis #First trimester Pt with adequate pain control using alternating tylenol and toradol. Pt may also be passing calculus with symptoms of lower abdominal pain and appearance of urine. - Continue IV ceftriaxone 2g q24h, last dose 07/03 - Continue IV NSS at 125mls x 1 bag - Tylenol 1000mg q8h prn for pain. - toradol 10mg q8h prn- transition to ibuprofen as needed at home - Stopped IV morphine 4mg q6h for severe pain. - Continue zofran 4mg prn q6h or Benadryl 25mg q8h for nausea - Consulted urology, appreciate recommendations Likely calculus is 3-4 mm per imaging previous as US measurements are less accurate than CT Continue Supportive care Continue straining urine Can follow up outpatient in 2-3 months with urology - OB consult completed 06/29- no further recommendations - Continue vitamin Chronic conditions: - Anxiety/depression- continue fluoxetine 30mg daily - GERD- Continue pantoprazole 40mg Qpm - Seasonal allergies- Continue Zyrtec 10 mg qd Dispo- med/surg Diet- regular as tolerated DVT prophylaxis- none, pt is mobile Code- full Total Time Total Time Spent Total Time Spent (In Minutes): <30 Discharge Plan Discharge Items Patient Disposition: Home - Self-Care Reason For Visit: COMPLICATED UTI/PYELONEPHORITIS Discharge Diagnosis: Nephrolithiasis/pyelonephoritis Condition on Discharge: Fair Activity: Resume your previous activity Non-emergency contact: Primary Care Provider Call non-emergency contact if: your symptoms worsen Follow-up/Referrals: Melody Jerome DO [Primary Care Provider] - 07/06/25 10:00 am (Appointment will be with ) Diet: Regular Addtl Attending Provider Instructions: You were admitted for pain control and combating dehydration and intractable nausea in the setting of a complicated UTI and kidney stone. For pain control at home we are recommending tylenol 650mg-1000mg as needed every 8 hours. You can use ibuprofen 400mg as needed between tylenol doses. Be sure to take NSAIDs with food and maintain good hydration. You can use Zofran or benadryl for nausea. Please continue your antibiotics orally. We have sent the follow prescription to your pharmacy: Cefdinir 300mg twice daily for 4 days Please schedule a visit with your PCP in the next 7-10 days Return to the ED if you have a fever above 101F, intractable vomiting or uncontrolled pain. Pending Studies at Discharge: No Stand-Alone Forms: My [facility] [employer], Smoking Cessation Medications and DC Order Prescriptions: New cefdinir 300 mg capsule 300 mg PO BID 4 Days Qty: 8 0RF Continued esomeprazole magnesium 20 mg capsule,delayed release(DR/EC) 20 mg PO QPM epinephrine 0.3 mg/0.3 mL auto-injector 0.3 mg IM Q15M PRN (Reason: anaphylaxis) Qty: 2 0RF (DME) inhalational spacing device Spacer See Rx Instructions .ROUTE .MEDSUPPLY Qty: 1 0RF Rx Instructions: As directed cetirizine [Zyrtec] 10 mg Tablet 10 mg PO QPM acetaminophen 500 mg Tablet 1,000 mg PO Q6H PRN (Reason: Pain) ondansetron 4 mg tablet,disintegrating 4 mg PO Q6H PRN (Reason: nausea and vomiting) Qty: 14 0RF fluoxetine 10 mg capsule 10 mg PO QAM Rx Instructions: Take w/ 20mg to equal 30mg by mouth every morning. fluoxetine 20 mg capsule 20 mg PO QAM Rx Instructions: Take w/ 10mg to equal 30mg by mouth every morning. PNV no.95-ferrous fumarate-FA [] 28 mg iron- 800 mcg Tablet 1 tab PO DAILY Discharge Orders: Discharge Order (Routine); Ordered 07/03/25 Ordered By: Melody Jerome Admission Data Admit Date/Time: 06/30/25 17:00 Attending Provider: Vadim Laboy Admit Provider: Melody Jerome Primary Care Provider: Melody Jerome Other Providers: Malik Carballo; Andry Muniz; Travis Ramirez Other Interventions: Discharge Summary Assessment (RN) Last Done: 07/03/25 12:54 Supervising Physician Co-Signing Physician Notes I personally examined the patient and verified all snow points of history and exam, discussed case, and agree with decision making with Dr Jerome Feeling better. Pain much easier to control. Passing some grains of sand in her urine. Feels like she would be okay at home in her current status. Vitals noted, in general she is awake and alert pleasant no distress. HEENT normocephalic atraumatic mucous membranes moist. Breathing unlabored no acc essory muscle use good effort. Skin without rashes pallor or icterus. Neuro without focal deficits. Labs and diagnostics noted. IMPRESSION & PLAN Pyelonephritis (With possible sepsis present on admissionwhite count/heart rate) versus all due to ureterolithiasis versus both First trimester feeling better, doing better. Safe/stable for home - As far as pyelonephritis with possible sepsis present on admissionhas improved. Negative culture does not necessarily rule out infection given that upper tract infection would be biggest suspicion. That said, improved on ceftriaxonesafe for home on cefdinir. Advised to return JOE if she has any fever. - As far as ureterolithiasisappears to be passing. Continue pain control. Improving, discussed Pain medications and risk/benefit. Discussed nausea medicines as well. Follow-up in office or return to hospital with intractable pain or nausea. Additional per resident documentation
--- NOTE | 2025-07-03 14:10 | Billing Data ---
Date of Service July 03, 2025 Coding Level of Care Code 02939 IN/OBS DISCH 30 MIN/LESS
== END 2025-07-03 13:49 | disposition home or self-care (01) | DRG 832 ==
LOC: ED 05:41 → EDINP 05:41 → SUATTDRO 11:50 → 3W 15:57 → SUATTDRO 06-30 17:00

== ENCOUNTER 2025-07-12 13:02 | Observation (INO) ==
[2025-07-12 14:20] LABS: Hematocrit (blood only) 37.9 % (37.0-47.0); Hemoglobin 12.8 g/dl (12.0-16.0); Immature Granulocytes # (auto) 0.11 K/uL (0.01-0.20); Immature Granulocytes % (auto) 0.6 %; Mean Corpuscular Hemoglobin 30.0 pg (25.0-34.0); Mean Corpuscular Volume 88.8 fL (80.0-100.0); Platelet Count 548 K/uL (130-400); RDW Standard Deviation 40.9 fL (36.4-46.3); Red Blood Count 4.27 M/uL (4.20-5.40); White Blood Count 19.83 K/ul (4.8-10.8)
[2025-07-12 14:44] LABS: Alanine Aminotransferase 18.0 U/L (7-52); Albumin Globulin Ratio 1.2 (0.9-2); Albumin Level 4.0 gm/dl (3.4-5.0); Alkaline Phosphatase 65.0 U/L (34-104); Anion Gap 8.0 (3-11); Bilirubin,Total 0.3 mg/dl (0.2-1.0); Blood Urea Nitrogen 10.0 mg/dl (6-23); Calcium 9.4 mg/dl (8.6-10.3); Carbon Dioxide 27.0 mmol/L (21-32); Chloride 102.0 mmol/L (98-107); Creatinine Clr Calc Pharmacy 132.7 ml/min; Globulin 3.3 gm/dl (2.5-4.0); Glucose 85.0 mg/dl (70-99(Fasting)); Lipase 53.0 U/L (11-82); Potassium 4.1 mmol/L (3.5-5.1); Sodium 137.0 mmol/L (136-145); Total Protein 7.3 gm/dl (6.0-8.3)
--- NOTE | 2025-07-12 15:18 | Emergency Department Note ---
ED Provider Note History of Present Illness Chief Complaint: Flank Pain Stated Complaint: KIDNEY PAIN, VOMITING, CHILLS, GI PAIN Time Seen by Provider: 07/12/25 13:27 Source: patient Mode of arrival: ambulatory Limitations: no limitations Patient is a 29 year old female that presents to the emergency department with complaints of lower back pain and some right upper quadrant pain. Patient states that she was recently admitted to the hospital for a kidney infection, approximately 2 weeks ago and isn't sure if her symptoms are related. Patient also notes some intermittent nausea. Patient states that she is 7 weeks as well. Home Medications Medication Instructions Recorded Confirmed Type cetirizine 10 mg tablet (Zyrtec) 10 mg PO QPM 12/26/23 07/12/25 History esomeprazole magnesium 20 mg 20 mg PO QPM 02/05/24 07/12/25 History capsule,delayed release epinephrine 0.3 mg/0.3 mL 0.3 mg (0.3 mL) IM Q15M PRN 06/02/24 07/12/25 Rx injection, auto-injector anaphylaxis #2 ea inhalational spacing device #1 ea 06/02/24 07/12/25 Rx fluoxetine 10 mg capsule 10 mg PO QPM 04/22/25 07/12/25 History fluoxetine 20 mg capsule 20 mg PO QPM 04/22/25 07/12/25 History acetaminophen 500 mg tablet 1,000 mg PO Q6H PRN Pain 06/04/25 07/12/25 History ondansetron 4 mg disintegrating 4 mg PO Q6H PRN nausea and 06/04/25 07/12/25 Rx tablet vomiting #14 tabs vit no.95-ferrous 1 tab PO QPM 06/28/25 07/12/25 History fumarate 28 mg-folic acid 800 mcg tablet () Vitamin B-6 1 tab PO QPM PRN to help with 07/12/25 07/12/25 History nausea albuterol sulfate 90 mcg/actuation 2 puff inhalation Q4 PRN Shortness 07/12/25 07/12/25 History aerosol inhaler Of Breath Or Wheezing mesalamine 1.2 gram tablet,delayed 4.8 g PO QPM 07/12/25 07/12/25 History release Allergies Allergy/AdvReac Type Severity Reaction Status Date / Time banana Allergy Severe throat Verified 07/10/25 13:19 closes, hives, throwing up shellfish derived Allergy Severe throat Verified 07/10/25 13:19 closes, hives, throwing up oxycodone AdvReac Severe Vomiting Unverified 07/10/25 13:19 metoclopramide AdvReac reacts Verified 07/12/25 19:58 with prozac per pt Past Med/Surg History Problem List (Updated 07/14/25 @ 16:54 by [facility]) Gallstones (Acute) Dehydration Nausea and vomiting (Acute) Right upper quadrant pain (Acute) Encounter for supervision of normal in multigravida Encounter for anatomic survey Early stage of (Acute) Nephrolithiasis Pyelonephritis affecting Pyelonephritis (Acute) Eosinophilic esophagitis Ulcerative colitis in remission Medical History Anxiety OCD (obsessive compulsive disorder) Varicella vaccination Hidradenitis suppurativa Mild persistent asthma Femoroacetabular impingement Labral tear of left hip joint Labral tear of right hip joint Ulcerative colitis in remission History of anesthesia reaction "when she goes to sleep, she is always panicked" Hidradenitis suppurativa Eosinophilic esophagitis hx Ovarian cyst hx Surgical History History of hip surgery (02/2025) right labral tear and left S/P endoscopy S/P wisdom tooth extraction S/P dilatation and curettage S/P colonoscopy H/O flexible sigmoidoscopy Family History Grandmother (Maternal) Breast cancer Maternal grandmother, maternal great grandmother Aunt Crohn's disease Ovarian cancer maternal great aunt Grandfather (Paternal) Lung disease Denies family history of Colorectal cancer Social History Smoking Status: Former smoker Tobacco Type: Cigarettes Age Started Using Tobacco: 20; Age Quit Using Tobacco: 27; packs per day: 0.25; Second Hand Exposure: Yes; Do You Dip or Chew Tobacco: No; Hx Alcohol Use: No Hx Substance Use: No Preferred Language: Estonian Communication Ability: Effective Piston Maker Required: No Beliefs That Will Affect Care: None marital status: marital status details: Malick Pappas [phone] Current Living Situation: Spouse and Family Current Living Situation Comment: and daughter current occupational status: unemployed Feels Safe at Home: Yes Assistive Devices: None Physical Exam Vital Signs Vital Signs - 24 hr 07/12/25 13:19 Temperature 36.7 C Temperature Source Oral Pulse Rate 91 H Respiratory Rate 16 Respiratory Effort / Characteristics Non-Labored Spontaneous Blood Pressure 107/74 Blood Pressure Mean 85 Pulse Oximetry 98 Oxygen Delivery Method Room Air Sepsis Recent Fever Within 48 Hours No Sepsis New/Unexplained Change in Mental Status No Sepsis Action Taken by Nursing No Action Required VITAL SIGNS - Vital signs and nursing notes were reviewed. GENERAL -29-year-old female appearing their stated age, who is in no acute distress. Communicates well with provider and answers questions appropriately. HEAD - Normocephalic, Atraumatic. No Aiken's Sign or Raccoon's Eyes. EYES - PERRL with EOMI bilaterally. Sclera anicteric. Conjunctiva pink and moist with no injection noted. EARS - No deformities of external structures noted on gross examination bilaterally. LUNGS - Chest wall symmetric without accessory muscle use, intercostals retractions, or central cyanosis. Normal vesicular breath sounds CTA B/L. No wheezes, rales, or rhonchi appreciated. CARDIAC - RRR with S1/S2. No murmur, rubs, or gallops appreciated. ABDOMEN- Patient's abdomen is soft and mildly tender in the right upper quadrant and bilateral lower abdomen. No palpable masses or ascites noted. EXTREMITIES - No edema present. +5/5 strength noted in UE/LE bilaterally. NEUROLOGIC -Sensory intact to light touch throughout. PSYCH - A&Ox3 and cooperates fully with examiner. Pt is very pleasant and interacts well with examiner Course Administered Medications Discontinued Medications Cetirizine HCl (Cetirizine Hcl 10 Mg Tablet) 10 mg PO QPM RICK Stop: 08/11/25 22:50 Last Admin: 07/12/25 23:50 Dose: 10 mg Documented By: DIANA Diphenhydramine HCl (Diphenhydramine 50 Mg/Ml Vial) 25 mg IV Q6H PRN PRN Reason: Anxiety/Agitation Stop: 08/11/25 22:03 Last Admin: 07/13/25 06:06 Dose: 25 mg Documented By: DIANA Diphenhydramine HCl (Diphenhydramine 50 Mg/Ml Vial) 50 mg IV NOW STA Stop: 07/12/25 23:13 Last Admin: 07/12/25 23:25 Dose: 50 mg Documented By: DIANA Fluoxetine HCl (Fluoxetine Hcl 10 Mg Cap) 10 mg PO QPM RICK Stop: 08/11/25 22:50 Last Admin: 07/12/25 23:49 Dose: 10 mg Documented By: DIANA Fluoxetine HCl (Fluoxetine Hcl 20 Mg Cap) 20 mg PO QPM RICK Stop: 08/11/25 22:50 Last Admin: 07/12/25 23:49 Dose: 20 mg Documented By: DIANA Acetaminophen (Ofirmev) 1,000 mg in 100 mls @ 400 mls/hr IV NOW STA Stop: 07/12/25 16:36 Last Infusion: 07/12/25 19:18 Dose: Infused Documented By: Admin: 07/12/25 16:33 Dose: 400 mls/hr Documented By: akkate Piperacillin Sod/Tazobactam Sod (Zosyn) 4.5 gm in 100 mls @ 200 mls/hr IV NOW ONE; Protocol Stop: 07/12/25 19:54 Last Infusion: 07/12/25 19:43 Dose: Infused Documented By: Admin: 07/12/25 19:40 Dose: 200 mls/hr Documented By: RAE Sodium Chloride (Nss) 1,000 mls @ 999 mls/hr IV .Q1H1M ONE Stop: 07/12/25 20:35 Last Infusion: 07/12/25 20:29 Dose: Infused Documented By: Admin: 07/12/25 19:40 Dose: 999 mls/hr Documented By: RAE Ceftriaxone Sodium (Rocephin) 1,000 mg in 50 mls @ 100 mls/hr IV Q24H RICK Stop: 07/23/25 05:59 Last Infusion: 07/13/25 06:27 Dose: Infused Documented By: Admin: 07/13/25 05:50 Dose: 100 mls/hr Documented By: DIANA Pantoprazole Sodium (Protonix) 40 mg in 10 mls @ 5 mls/min IV QAM RICK Stop: 08/12/25 08:59 Last Admin: 07/13/25 08:41 Dose: 5 mls/min Documented By: MTM Potassium Chloride/Sodium Chloride (Normal Saline W/20 Meq Kcl) 20 meq in 1,000 mls @ 100 mls/hr IV .Q10H RICK Stop: 07/15/25 23:14 Last Infusion: 07/13/25 11:30 Dose: 0 mls/hr Documented By: Admin: 07/13/25 08:41 Dose: 100 mls/hr Documented By: Infusion: 07/13/25 08:41 Dose: Infused Documented By: Admin: 07/12/25 23:51 Dose: 100 mls/hr Documented By: DIANA Acetaminophen (Ofirmev) 1,000 mg in 100 mls @ 400 mls/hr IV Q8H PRN PRN Reason: Pain or Fever Stop: 07/15/25 22:50 Last Infusion: 07/13/25 09:33 Dose: Infused Documented By: Admin: 07/13/25 08:43 Dose: 400 mls/hr Documented By: MTM Acetaminophen (Ofirmev) 1,000 mg in 100 mls @ 400 mls/hr IV NOW STA Stop: 07/12/25 23:26 Last Infusion: 07/12/25 23:56 Dose: Infused Documented By: Admin: 07/12/25 23:24 Dose: 400 mls/hr Documented By: DIANA Ondansetron HCl (Ondansetron Inj 2 Mg/Ml 2 Ml Vial) 4 mg IV NOW STA Stop: 07/12/25 16:23 Last Admin: 07/12/25 16:33 Dose: 4 mg Documented By: akv Ondansetron HCl (Ondansetron Inj 2 Mg/Ml 2 Ml Vial) 4 mg IV NOW STA Stop: 07/12/25 21:59 Last Admin: 07/12/25 22:07 Dose: 4 mg Documented By: ASW Ondansetron HCl (Ondansetron Inj 2 Mg/Ml 2 Ml Vial) 4 mg IV Q6H PRN PRN Reason: NAUSEA/VOMITING Stop: 08/11/25 22:50 Last Admin: 07/13/25 11:42 Dose: 4 mg Documented By: REKHA Prenat Multivit/Apprentice Embalmer/Iron/Folic Ac ( Vitamin 1 Tab) 1 tab PO QPM RICK Stop: 08/11/25 22:50 Last Admin: 07/12/25 23:49 Dose: 1 tab Documented By: DIANA Medical Decision Making Differential Diagnosis Kidney stone, pyelonephritis, UTI, cholecystitis, cholelithiasis, complications, appendicitis, enteritis, among others Medical Records Attestation: I reviewed the patient's medical records. Home Medications was personally reviewed by me Laboratory Data Attestation: I reviewed the patient's lab results. 07/13/25 05:37 07/13/25 05:37 Lab Results 07/12/25 07/12/25 Range/Units 13:55 16:38 WBC 19.83 H (4.8-10.8) K/ul RBC 4.27 (4.20-5.40) M/uL Hgb 12.8 (12.0-16.0) g/dl Hct 37.9 (37.0-47.0) % MCV 88.8 (80.0-100.0) fL MCH 30.0 (25.0-34.0) pg MCHC 33.8 (32.0-36.0) g/dL RDW Std Deviation 40.9 (36.4-46.3) fL RDW Coeff of Taty 12.6 (11.5-14.5) % Plt Count 548 H (130-400) K/uL MPV 9.0 L (9.4-12.4) fL Immature Gran % (Auto) 0.6 % Neut % (Auto) 78.9 % Lymph % (Auto) 13.8 % [place] % (Auto) 4.5 % Eos % (Auto) 1.6 % Baso % (Auto) 0.6 % Neut # (Auto) 15.65 H (1.40-6.50) K/uL Lymph # (Auto) 2.74 (1.20-3.40) K/uL [place] # (Auto) 0.90 H (0.11-0.59) K/uL Eos # (Auto) 0.31 (0.00-0.50) K/uL Baso # (Auto) 0.12 (0.00-0.20) K/uL Immature Gran # (Auto) 0.11 (0.01-0.20) K/uL Sodium 137 (136-145) mmol/L Potassium 4.1 (3.5-5.1) mmol/L Chloride 102 (98-107) mmol/L Carbon Dioxide 27 (21-32) mmol/L Anion Gap 8 (3-11) BUN 10 (6-23) mg/dl Creatinine 0.54 L (0.6-1.2) mg/dl Est Cr Clr Drug Dosing 132.7 ml/min eGFR 127.73 BUN/Creatinine Ratio 18.5 (10-20) Glucose 85 (70-99(Fasting)) mg/dl Calcium 9.4 (8.6-10.3) mg/dl Total Bilirubin 0.3 (0.2-1.0) mg/dl AST 16 (13-39) U/L ALT 18 (7-52) U/L Alkaline Phosphatase 65 (34-104) U/L Total Protein 7.3 (6.0-8.3) gm/dl Albumin 4.0 (3.4-5.0) gm/dl Globulin 3.3 (2.5-4.0) gm/dl Albumin/Globulin Ratio 1.2 (0.9-2) Lipase 53 (11-82) U/L HCG, Quant 249733 mIU/ml Urine Color Yellow Urine Appearance Clear (Clear) Urine pH 6.0 (4.5-7.5) Ur Specific [place] 1.019 (1.000-1.030) Urine Protein Negative (Negative) Urine Glucose (UA) Negative (Negative) Urine Ketones Negative (Negative) Urine Blood Negative (Negative) Urine Nitrite Negative (Negative) Urine Bilirubin Negative (Negative) Urine Urobilinogen Negative (Negative) Ur Leukocyte Esterase Negative (Negative) Urine Comment Imaging Data Radiologist's Impression: Ultrasound 07/12/25 16:24 Clinical History: Pelvic pain Technique: Transabdominal and transvaginal pelvic sonography was performed Findings: A single live intrauterine gestation is seen. The heart rate is within normal limits at 163 bpm. No obvious anomaly is seen at this early stage. There is no sign of subchorionic hemorrhage. The crown-rump length is 1.47 cm. This represents an estimated gestational age of 7 weeks and 6 days No uterine mass lesion is seen. No free fluid is seen within the pelvis. The right ovary contains a 1.8 cm mixed hypoechoic and anechoic lesion. The left ovary appears normal. The cervix is closed. Impression: 1. Single live intrauterine with an estimated gestational age of 7 weeks and 6 days 2. Small complex right ovarian lesion, likely a proteinaceous or hemorrhagic corpus luteum cyst ACT 112: Positive. There are findings on this exam that require communication between the performing entity and the patient following Patient Test Result Information Act ([place] ACT 112) guidelines. Electronically signed by López Baumann 07-12-2025 7:14 PM MDM Narrative Patient is a 29 year old female that presents to the emergency department with complaints of lower back pain and some right upper quadrant pain. Patient states that she was recently admitted to the hospital for a kidney infection, approximately 2 weeks ago and isn't sure if her symptoms are related. Patient also notes some intermittent nausea. Patient states that she is 7 weeks as well. Patient was evaluated by myself and findings were noted in the physical exam above. Patient was ordered IV placement, labwork, and an ultrasound of her gallbladder, renal ultrasound, and ultrasound. Patient's lab work resulted with an eleavtated WBC of 19.87. Patient had no significant indication of anemia anad no notable electrolyte imbalance. Patient had an HCG level check which was [id number] which is reasonable for a 7 week . Patient's renal ultrasound was completed and interpreted by radiology to note a normal ultrasound of her kidneys, no acute findings were noted. Patient was ordered a does of IV acetaminophen and xofran for symptom control. Patient also had an ultrasound of her gallbladder completed which was interpreted by radiology to note cholelithiasis without evidence of acute cholecystitis. Patient's ultrasound was also completed by radiology and interpreted ot show a single viable gestation with a heart rate of 163. No evidence of subchorionic hemorrhage was noted. I discussed all of these findings with the patient and the patient verbalized understanding. The patient was still having some discomfort and reported that she did not feel comfortable with being discharged, as she was afraid that she could develop worsening symptoms late at night and have to come back. Patient also attributes being and having limited options for controlling her symptoms at home being another concern for discharge and another reason that she would feel more comfortable with an observation stay in the hospital. The patient does have an elevated white blood cell count of over 19 and is tender to palpation in the right upper quadrant. I spoke to Dr. Saxena about this patient, giving him a full report on the patient's chief complaint, current status and the results of her imaging and labwork. Dr. Saxena agreed to admit the patient under his service for observation. I also consulted general surgery to evaluate the patient due to her persistent symptoms with such an elevated WBC count. Jeremias of general surgery agreed to evaluate the patient and will see her in the ED. Please refer to the [facility] and General Surgery's documentation for further evaluation and management of this patient. Impression Early stage of , Right upper quadrant pain, Nausea and vomiting, Gallstones Discharge Plan Visit Data Chief Complaint: Flank Pain Stated Complaint: KIDNEY PAIN, VOMITING, CHILLS, GI PAIN ED Provider: David Nunez ED Midlevel Provider: Love Dunham Discharge Problem: Early stage of , Right upper quadrant pain, Nausea and vomiting, Gallstones Patient Disposition: Admitted As Inpatient Condition: Fair Discharge Instructions Interventions: ED Discharge Assessment Last Done: 07/12/25 22:21 ED DC CONDITION Conditon at Discharge Condition at Discharge: Fair Discharge Problem: Nausea and vomiting Qualifiers: Vomiting type: unspecified Qualified Code(s): R11.2 - Nausea with vomiting, unspecified
--- NOTE | 2025-07-12 15:44 | Ultrasound Report ---
ULTRASOUND KIDNEYS AND BLADDER CLINICAL HISTORY: Left-sided low back pain. COMPARISON STUDY: Renal ultrasound dated 06/30/2025. Abdominal CT dated 06/04/2025 TECHNIQUE: Real-time, grayscale, and color flow sonography of the kidneys and bladder is performed. I mages are reviewed in the transverse and longitudinal planes. FINDINGS: Kidneys: The kidneys are normal in size and echotexture. The right kidney measures 10.7 x 4.0 x 5.2 c m and the left kidney measures 12.1 x 5.3 x 5.3 cm. There is no hydronephrosis. No shadowing renal c alculi are identified. There is no sonographic evidence of contour deforming renal mass lesion. No pe rinephric fluid is identified. Bladder: The bladder is normal in appearance. Bilateral ureteral jets were seen. Upper abdomen: Survey imaging of the gallbladder shows cholelithiasis. There is no sonographic eviden ce of acute cholecystitis. IMPRESSION: 1. Normal sonographic examination of the kidneys and bladder. 2. Cholelithiasis. ACT 112: Negative or not required by law. Electronically signed by: Damian Ibrahim M.D. 07/12/2025 3:43 PM
[2025-07-12] MEDS: ACETAMINOPHEN 1,000 MG/100 ML VIAL IV STA ×2 (16:33→23:24)
[2025-07-12] MEDS: ONDANSETRON INJ 2 MG/ML 2 ML VIAL IV STA ×2 (16:33→22:07)
[2025-07-12 16:50] LABS: Appearance Urine Clear (Clear); Glucose Urine UA Negative (Negative)
--- NOTE | 2025-07-12 18:06 | Ultrasound Report ---
Clinical history: Right upper quadrant pain Technique: Sonography was performed of the right upper quadrant of the abdomen Findings: There is no sign of cirrhosis or significant fatty infiltration. No definite liver mass is seen Gallstones are present as well as gallbladder sludge. The gallbladder has a normal wall thickness and no adjacent fluid is seen. No definite sonographic Kim sign was detected. There is no intrahepatic or extrahepatic bile duct dilatation. The common bile duct measures 3 mm The right kidney measures 10.1 cm in length. There is no hydronephrosis. No definite renal calculus or mass is seen The visualized pancreas, aorta, and IVC appear unremarkable. No ascites is seen Impression: Cholelithiasis without evidence of acute cholecystitis Electronically signed by López Baumann 07-12-2025 6:05 PM
--- NOTE | 2025-07-12 19:17 | Ultrasound Report ---
Clinical History: Pelvic pain Technique: Transabdominal and transvaginal pelvic sonography was performed Findings: A single live intrauterine gestation is seen. The heart rate is within normal limits at 163 bpm. No obvious anomaly is seen at this early stage. There is no sign of subchorionic hemorrhage. The crown-rump length is 1.47 cm. This represents an estimated gestational age of 7 weeks and 6 days No uterine mass lesion is seen. No free fluid is seen within the pelvis. The right ovary contains a 1.8 cm mixed hypoechoic and anechoic lesion. The left ovary appears normal. The cervix is closed. Impression: 1. Single live intrauterine with an estimated gestational age of 7 weeks and 6 days 2. Small complex right ovarian lesion, likely a proteinaceous or hemorrhagic corpus luteum cyst ACT 112: Positive. There are findings on this exam that require communication between the performing entity and the patient following Patient Test Result Information Act ([place] ACT 112) guidelines. Electronically signed by López Baumann 07-12-2025 7:14 PM
[2025-07-12] MEDS: PIPERACILLIN/TAZOBACTAM 4.5 GM/100 ML BAG IV ONE (19:40)
[2025-07-12] MEDS: SODIUM CHLORIDE 0.9% 1,000 ML IV ONE (19:40)
--- NOTE | 2025-07-12 20:13 | History & Physical Report ---
Date of Service July 12, 2025 Assessment & Plan (1) Right upper quadrant pain: (2) Nausea and vomiting: (3) Dehydration: (4) Early stage of : Plan The patient is a 29-year-old female with past medical history including ulcerative colitis in remission, GERD, pyelonephritis, allergy symptoms, and asthma. She presents to the emergency department with complaint of nausea, vomiting, right upper quadrant pain, and decreased urination in particular worsening over the past 24 hours. Workup in the emergency department included a renal ultrasound which was negative, ultrasound which showed a single gestation 7 weeks and 6 days, and a gallbladder ultrasound which showed cholelithiasis without evidence of acute cholecystitis. Laboratories were significant for elevated white blood cell count of 19.83, hemoglobin of 12.8 and hematocrit 37.9, and platelets of 548. Patient was referred for evaluation for admission to the [facility], with consult to general surgery. Right upper quadrant pain/nausea vomiting- N.p.o. except medications Zofran 4 mg IV every 6 hours as needed Pantoprazole 40 mg IV daily Acetaminophen 1 g IV every 8 hours as needed for mild pain or fever NSS + KCl 20 mEq at 100 mL/h Serial CBC with differential, chemistry profile Order HIDA scan Given Zosyn in the ED Ceftriaxone 1g IV q 24 hours Benadryl 25mg IV q6h prn Consult general surgery Early - ultrasound at 7 weeks 6 days Consult OB to see while in hospital Asthma/allergy- Continue Zyrtec, and albuterol HFA 2 puffs every 4 hours as needed GERD- Change oral Nexium to pantoprazole IV History of Present Illness Chief Complaint: The patient presents to the emergency department with complaint of nausea, vomiting, and right upper quadrant pain, with decreased ability to hold any oral intake in particular over the past 24 hours. She reports difficulty starting urination as well. Primary Care Provider: Melody Jerome DO The patient is a 29-year-old female with past medical history including ulcerative colitis in remission, GERD, pyelonephritis, allergy symptoms, and asthma. She presents to the emergency department with complaint of nausea, vomiting, right upper quadrant pain, and decreased urination in particular worsening over the past 24 hours. Workup in the emergency department included a renal ultrasound which was negative, ultrasound which showed a single gestation 7 weeks and 6 days, and a gallbladder ultrasound which showed cholelithiasis without evidence of acute cholecystitis. Laboratories were significant for elevated white blood cell count of 19.83, hemoglobin of 12.8 and hematocrit 37.9, and platelets of 548. Patient was referred for evaluation for admission to the [facility], with consult to general surgery. Allergies Allergy/AdvReac Type Severity Reaction Status Date / Time banana Allergy Severe throat Verified 07/10/25 13:19 closes, hives, throwing up shellfish derived Allergy Severe throat Verified 07/10/25 13:19 closes, hives, throwing up oxycodone AdvReac Severe Vomiting Unverified 07/10/25 13:19 metoclopramide AdvReac reacts Verified 07/12/25 19:58 with prozac per pt Home Medications Medication Instructions Recorded Confirmed Type cetirizine 10 mg tablet (Zyrtec) 10 mg PO QPM 12/26/23 07/12/25 History esomeprazole magnesium 20 mg 20 mg PO QPM 02/05/24 07/12/25 History capsule,delayed release epinephrine 0.3 mg/0.3 mL 0.3 mg (0.3 mL) IM Q15M PRN 06/02/24 07/12/25 Rx injection, auto-injector anaphylaxis #2 ea inhalational spacing device #1 ea 06/02/24 07/12/25 Rx fluoxetine 10 mg capsule 10 mg PO QPM 04/22/25 07/12/25 History fluoxetine 20 mg capsule 20 mg PO QPM 04/22/25 07/12/25 History acetaminophen 500 mg tablet 1,000 mg PO Q6H PRN Pain 06/04/25 07/12/25 History ondansetron 4 mg disintegrating 4 mg PO Q6H PRN nausea and 06/04/25 07/12/25 Rx tablet vomiting #14 tabs vit no.95-ferrous 1 tab PO QPM 06/28/25 07/12/25 History fumarate 28 mg-folic acid 800 mcg tablet () Vitamin B-6 1 tab PO QPM PRN to help with 07/12/25 07/12/25 History nausea albuterol sulfate 90 mcg/actuation 2 puff inhalation Q4 PRN Shortness 07/12/25 07/12/25 History aerosol inhaler Of Breath Or Wheezing mesalamine 1.2 gram tablet,delayed 4.8 g PO QPM 07/12/25 07/12/25 History release Past Med/Surg History Problem List (Updated 07/12/25 @ 20:21 by Ozzy Saxena MD) Dehydration Nausea and vomiting Right upper quadrant pain Encounter for supervision of normal in multigravida Encounter for anatomic survey Early stage of Nephrolithiasis Pyelonephritis affecting Pyelonephritis (Acute) Eosinophilic esophagitis Ulcerative colitis in remission Medical History Anxiety OCD (obsessive compulsive disorder) Varicella vaccination Hidradenitis suppurativa Mild persistent asthma Femoroacetabular impingement Labral tear of left hip joint Labral tear of right hip joint Ulcerative colitis History of anesthesia reaction Hidradenitis suppurativa Eosinophilic esophagitis Ovarian cyst Surgical History History of hip surgery (02/2025) S/P endoscopy S/P wisdom tooth extraction S/P dilatation and curettage S/P colonoscopy H/O flexible sigmoidoscopy Family History Grandmother (Maternal) Breast cancer Aunt Crohn's disease Ovarian cancer Grandfather (Paternal) Lung disease Denies family history of Colorectal cancer Social History Smoking Status: Former smoker Tobacco Type: Cigarettes and E-cigarettes / Vaping Age Started Using Tobacco: 20; Age Quit Using Tobacco: 27; packs per day: 0.25; Second Hand Exposure: Yes; Do You Dip or Chew Tobacco: No; Hx Alcohol Use: No Hx Substance Use: No Preferred Language: Turkmen Communication Ability: Effective Animal Damage Control Agent Required: No Beliefs That Will Affect Care: None marital status: marital status details: Malick Pappas (25) [phone] Current Living Situation: Spouse and Family Current Living Situation Comment: Lives with spouse, child, dogs, chickens current occupational status: unemployed Feels Safe at Home: Yes Assistive Devices: None Review of Systems Review of Systems: The patient denies chest pain, palpitations, shortness of breath, dyspnea on exertion, cough, lower extremity swelling, advised sore throat, sweats, diarrhea , constipation, blood in urine or stool, dysuria, urinary frequency or urgency, lightheadedness, dizziness, headache, memory loss, loss of consciousness, rash, abnormal bruising or bleeding, imbalance, focal or generalized weakness, numbness or tingling in arms or legs, generalized arthralgias or myalgias, back or neck pain, or night sweats. The review of systems is otherwise negative other than for that already noted above, and at least 10 systems have been reviewed. Physical Exam Physical Exam: The patient is awake, alert and oriented 3, well developed and well nourished, normocephalic and atraumatic, lying in bed and in no acute distress. HEENT--PERRL, EOMI, mucous membranes and oropharynx mildly dry. Neck--supple. No JVD. No bruits. Thyroid normal, trachea midline, no adenopathy. Heart--normal S1 and S2. No murmurs, rubs or gallops. Lungs--clear bilaterally, no respiratory distress, no accessory muscle use. Abdomen--normal bowel sounds and soft. Significant tenderness right upper quadrant to light pressure. Nondistended, no hernias or masses, no organomegaly. Extremities--no cyanosis or clubbing. No edema. There are good distal pulses b/l. Dermatologic--normal skin turgor, normal color, no abnormal lymph nodes, no rash. Neurologic--cranial nerves II through XII grossly intact. Rheumatologic--normal range of motion. Psychiatric--normal affect. Results & Data Results & Data Vital Signs (Past 12 Hours) Vital Signs Temp Pulse Pulse Resp BP BP Pulse Ox 07/12/25 19:40 72 17 113/66 98 07/12/25 13:19 36.7 C 91 H 16 107/74 98 O2 Del Method 07/12/25 19:40 Room Air 07/12/25 13:19 Room Air Laboratory Results Laboratory Results WBC 19.83 K/ul (4.8-10.8) H 07/12/25 13:55 RBC 4.27 M/uL (4.20-5.40) 07/12/25 13:55 Hgb 12.8 g/dl (12.0-16.0) 07/12/25 13:55 Hct 37.9 % (37.0-47.0) 07/12/25 13:55 MCV 88.8 fL (80.0-100.0) 07/12/25 13:55 MCH 30.0 pg (25.0-34.0) 07/12/25 13:55 MCHC 33.8 g/dL (32.0-36.0) 07/12/25 13:55 RDW Std Deviation 40.9 fL (36.4-46.3) 07/12/25 13:55 RDW Coeff of Taty 12.6 % (11.5-14.5) 07/12/25 13:55 Plt Count 548 K/uL (130-400) H 07/12/25 13:55 MPV 9.0 fL (9.4-12.4) L 07/12/25 13:55 Immature Gran % (Auto) 0.6 % 07/12/25 13:55 Neut % (Auto) 78.9 % 07/12/25 13:55 Lymph % (Auto) 13.8 % 07/12/25 13:55 Bradley % (Auto) 4.5 % 07/12/25 13:55 Eos % (Auto) 1.6 % 07/12/25 13:55 Baso % (Auto) 0.6 % 07/12/25 13:55 Neut # (Auto) 15.65 K/uL (1.40-6.50) H 07/12/25 13:55 Lymph # (Auto) 2.74 K/uL (1.20-3.40) 07/12/25 13:55 Bradley # (Auto) 0.90 K/uL (0.11-0.59) H 07/12/25 13:55 Eos # (Auto) 0.31 K/uL (0.00-0.50) 07/12/25 13:55 Baso # (Auto) 0.12 K/uL (0.00-0.20) 07/12/25 13:55 Immature Gran # (Auto) 0.11 K/uL (0.01-0.20) 07/12/25 13:55 Sodium 137 mmol/L (136-145) 07/12/25 13:55 Potassium 4.1 mmol/L (3.5-5.1) 07/12/25 13:55 Chloride 102 mmol/L (98-107) 07/12/25 13:55 Carbon Dioxide 27 mmol/L (21-32) 07/12/25 13:55 Anion Gap 8 (3-11) 07/12/25 13:55 BUN 10 mg/dl (6-23) 07/12/25 13:55 Creatinine 0.54 mg/dl (0.6-1.2) L 07/12/25 13:55 Est Cr Clr Drug Dosing 132.7 ml/min 07/12/25 13:55 eGFR 127.73 07/12/25 13:55 BUN/Creatinine Ratio 18.5 (10-20) 07/12/25 13:55 Glucose 85 mg/dl (70-99(Fasting)) 07/12/25 13:55 Calcium 9.4 mg/dl (8.6-10.3) 07/12/25 13:55 Total Bilirubin 0.3 mg/dl (0.2-1.0) 07/12/25 13:55 AST 16 U/L (13-39) 07/12/25 13:55 ALT 18 U/L (7-52) 07/12/25 13:55 Alkaline Phosphatase 65 U/L (34-104) 07/12/25 13:55 Total Protein 7.3 gm/dl (6.0-8.3) 07/12/25 13:55 Albumin 4.0 gm/dl (3.4-5.0) 07/12/25 13:55 Globulin 3.3 gm/dl (2.5-4.0) 07/12/25 13:55 Albumin/Globulin Ratio 1.2 (0.9-2) 07/12/25 13:55 Lipase 53 U/L (11-82) 07/12/25 13:55 HCG, Quant [id number] mIU/ml 07/12/25 13:55 Urine Color Yellow 07/12/25 16:38 Urine Appearance Clear (Clear) 07/12/25 16:38 Urine pH 6.0 (4.5-7.5) 07/12/25 16:38 Ur Specific [place] 1.019 (1.000-1.030) 07/12/25 16:38 Urine Protein Negative (Negative) 07/12/25 16:38 Urine Glucose (UA) Negative (Negative) 07/12/25 16:38 Urine Ketones Negative (Negative) 07/12/25 16:38 Urine Blood Negative (Negative) 07/12/25 16:38 Urine Nitrite Negative (Negative) 07/12/25 16:38 Urine Bilirubin Negative (Negative) 07/12/25 16:38 Urine Urobilinogen Negative (Negative) 07/12/25 16:38 Ur Leukocyte Esterase Negative (Negative) 07/12/25 16:38 Urine Comment 07/12/25 16:38 Impressions Renal Ultrasound 07/12/25 13:37 ULTRASOUND KIDNEYS AND BLADDER CLINICAL HISTORY: Left-sided low back pain. COMPARISON STUDY: Renal ultrasound dated 06/30/2025. Abdominal CT dated 06/04/2025 TECHNIQUE: Real-time, grayscale, and color flow sonography of the kidneys and bladder is performed. Images are reviewed in the transverse and longitudinal planes. FINDINGS: Kidneys: The kidneys are normal in size and echotexture. The right kidney measures 10.7 x 4.0 x 5.2 cm and the left kidney measures 12.1 x 5.3 x 5.3 cm. There is no hydronephrosis. No shadowing renal calculi are identified. There is no sonographic evidence of contour deforming renal mass lesion. No perinephric fluid is identified. Bladder: The bladder is normal in appearance. Bilateral ureteral jets were seen. Upper abdomen: Survey imaging of the gallbladder shows cholelithiasis. There is no sonographic evidence of acute cholecystitis. IMPRESSION: 1. Normal sonographic examination of the kidneys and bladder. 2. Cholelithiasis. ACT 112: Negative or not required by law. Electronically signed by: Damian Ibrahim M.D. 07/12/2025 3:43 PM Gallbladder Ultrasound 07/12/25 16:22 Clinical history: Right upper quadrant pain Technique: Sonography was performed of the right upper quadrant of the abdomen Findings: There is no sign of cirrhosis or significant fatty infiltration. No definite liver mass is seen Gallstones are present as well as gallbladder sludge. The gallbladder has a normal wall thickness and no adjacent fluid is seen. No definite sonographic Kim sign was detected. There is no intrahepatic or extrahepatic bile duct dilatation. The common bile duct measures 3 mm The right kidney measures 10.1 cm in length. There is no hydronephrosis. No definite renal calculus or mass is seen The visualized pancreas, aorta, and IVC appear unremarkable. No ascites is seen Impression: Cholelithiasis without evidence of acute cholecystitis Electronically signed by López Baumann 07-12-2025 6:05 PM Ultrasound 07/12/25 16:24 Clinical History: Pelvic pain Technique: Transabdominal and transvaginal pelvic sonography was performed Findings: A single live intrauterine gestation is seen. The heart rate is within normal limits at 163 bpm. No obvious anomaly is seen at this early stage. There is no sign of subchorionic hemorrhage. The crown-rump length is 1.47 cm. This represents an estimated gestational age of 7 weeks and 6 days No uterine mass lesion is seen. No free fluid is seen within the pelvis. The right ovary contains a 1.8 cm mixed hypoechoic and anechoic lesion. The left ovary appears normal. The cervix is closed. Impression: 1. Single live intrauterine with an estimated gestational age of 7 weeks and 6 days 2. Small complex right ovarian lesion, likely a proteinaceous or hemorrhagic corpus luteum cyst ACT 112: Positive. There are findings on this exam that require communication between the performing entity and the patient following Patient Test Result Information Act ([place] ACT 112) guidelines. Electronically signed by López Baumann 07-12-2025 7:14 PM Code Status & VTE Plan Code Status full code VTE Prophylaxis Plan VTE Prophylaxis will be ordered: Yes PG Care Time/CCT Total # of Minutes Spent Total Time Spent with Patient: Total time spent is greater than 50% in coordination of care (as documented) at patient's floor/unit and/or counseling patient: Coding Level of Care Code 78509 INT INP/OBS CARE 3/75MIN Diagnoses Right upper quadrant pain R10.11 Nausea and vomiting R11.2 Dehydration E86.0 Early stage of Z34.90
--- NOTE | 2025-07-12 20:31 | Surgery Consultation ---
Date of Consultation July 12, 2025 Assessment & Plan (1) Right upper quadrant pain: The patient is a 29-year-old female, currently 7 weeks , who presented to the emergency department with complaints of nausea, vomiting, lower abdominal pain, and right upper quadrant pain. Originally thought her symptoms were associated to her due to her lower abdominal pain however over the last few days the pain has migrated up to her right upper quadrant and she has had associated nausea and vomiting. Labs and imaging reviewed. Patient found to have leukocytosis of 19.8 and gallbladder ultrasound findings with cholelithiasis without any evidence of acute cholecystitis. Patient also underwent renal ultrasound due to complaints of decreased urination and there were no acute findings. Patient also underwent pelvic ultrasound showing single live intrauterine estimated gestational age of 7 weeks 6 days. The patient has been admitted to the medical service with general surgery consult. Patient was seen and evaluated this evening at bedside in the emergency department, she is resting comfortably bed, vital signs stable, and is nontoxic- appearing. On exam she does have tenderness in her RUQ. For now recommend keeping patient n.p.o., provide appropriate IV hydration, pain control and antiemetics as needed. Trend temps and WBC. Medical team has ordered a HIDA scan, will follow-up results of this and additional surgical recommendations to follow. (2) Nausea and vomiting: (3) Dehydration: History of Present Illness Reason for Consultation: RUQ abdominal pain History of Present Illness The patient is a 29-year-old female, currently 7 weeks , who presented to the emergency department with complaints of nausea, vomiting, lower abdominal pain, and right upper quadrant pain. Patient states that her pain started a few days ago but at that time was more in her lower abdomen, she just attributed this to her . However, over the last few days the patient states that the pain has migrated up to her right upper quadrant and has had associated nausea and vomiting. The patient also states that she has had decrease in urination and burning sensation when she urinates as well. Due to her symptoms, the patient came to the emergency department for further evaluation. Upon workup patient was found to have a leukocytosis of 19.8 and ultrasound imaging showing cholelithiasis without evidence of acute cholecystitis. The patient was admitted to the medical service for dehydration and general surgery was consulted for ultrasound findings. The patient was seen and evaluated emergency department this evening. She is resting comfortably bed, vital signs stable, and is nontoxic-appearing. Patient states that she is feeling better at the moment. Patient denies any previous abdominal surgeries in the past however she do have a history of UC and has had multiple colonoscopies. Allergies Allergy/AdvReac Type Severity Reaction Status Date / Time banana Allergy Severe throat Verified 07/10/25 13:19 closes, hives, throwing up shellfish derived Allergy Severe throat Verified 07/10/25 13:19 closes, hives, throwing up oxycodone AdvReac Severe Vomiting Unverified 07/10/25 13:19 metoclopramide AdvReac reacts Verified 07/12/25 19:58 with prozac per pt Home Medications Medication Instructions Recorded Confirmed Type cetirizine 10 mg tablet (Zyrtec) 10 mg PO QPM 12/26/23 07/12/25 History esomeprazole magnesium 20 mg 20 mg PO QPM 02/05/24 07/12/25 History capsule,delayed release epinephrine 0.3 mg/0.3 mL 0.3 mg (0.3 mL) IM Q15M PRN 06/02/24 07/12/25 Rx injection, auto-injector anaphylaxis #2 ea inhalational spacing device #1 ea 06/02/24 07/12/25 Rx fluoxetine 10 mg capsule 10 mg PO QPM 04/22/25 07/12/25 History fluoxetine 20 mg capsule 20 mg PO QPM 04/22/25 07/12/25 History acetaminophen 500 mg tablet 1,000 mg PO Q6H PRN Pain 06/04/25 07/12/25 History ondansetron 4 mg disintegrating 4 mg PO Q6H PRN nausea and 06/04/25 07/12/25 Rx tablet vomiting #14 tabs vit no.95-ferrous 1 tab PO QPM 06/28/25 07/12/25 History fumarate 28 mg-folic acid 800 mcg tablet () Vitamin B-6 1 tab PO QPM PRN to help with 07/12/25 07/12/25 History nausea albuterol sulfate 90 mcg/actuation 2 puff inhalation Q4 PRN Shortness 07/12/25 07/12/25 History aerosol inhaler Of Breath Or Wheezing mesalamine 1.2 gram tablet,delayed 4.8 g PO QPM 07/12/25 07/12/25 History release Patient History Medical History Anxiety OCD (obsessive compulsive disorder) Varicella vaccination Hidradenitis suppurativa Mild persistent asthma Femoroacetabular impingement Labral tear of left hip joint Labral tear of right hip joint Ulcerative colitis History of anesthesia reaction Hidradenitis suppurativa Eosinophilic esophagitis Ovarian cyst Surgical History History of hip surgery (02/2025) S/P endoscopy S/P wisdom tooth extraction S/P dilatation and curettage S/P colonoscopy H/O flexible sigmoidoscopy Family History Grandmother (Maternal) Breast cancer Aunt Crohn's disease Ovarian cancer Grandfather (Paternal) Lung disease Denies family history of Colorectal cancer Social History Smoking Status: Former smoker Tobacco Type: Cigarettes Age Started Using Tobacco: 20; Age Quit Using Tobacco: 27; packs per day: 0.25; Second Hand Exposure: Yes; Do You Dip or Chew Tobacco: No; Hx Alcohol Use: No Hx Substance Use: No Preferred Language: Japanese Communication Ability: Effective Traffic Administrator Required: No Beliefs That Will Affect Care: None marital status: marital status details: Malick Pappas (25) [phone] Current Living Situation: Spouse and Family Current Living Situation Comment: and daughter current occupational status: unemployed Other Information That Helps Us Care for You: No Feels Safe at Home: Yes Safety Concerns: Feels Safe At This Time Assistive Devices: None Review of Systems Constitutional: no fever, no chills and no weakness Respiratory: no cough, no chest congestion and no wheezing Cardiovascular: no chest pain, no palpitations and no syncope Gastrointestinal: + abdominal pain, + nausea and + vomitin g Genitourinary: + decreased urination Physical Exam Constitutional: WD/WN, vitals as above Respiratory: normal respiratory effort, lungs clear to auscultation Cardiovascular: RRR, no murmur, no edema Gastrointestinal (Abdomen): Abdomen soft, nondistended, +TTP in the RUQ No rebound, guarding or peritonitis Results & Data Vital Signs (Past 12 Hours) Vital Signs Temp Pulse Pulse Resp BP BP Pulse Ox 07/12/25 20:28 76 19 106/68 99 07/12/25 19:40 72 17 113/66 98 07/12/25 13:19 36.7 C 91 H 16 107/74 98 O2 Del Method 07/12/25 20:28 Room Air 07/12/25 19:40 Room Air 07/12/25 13:19 Room Air Diagnostic Findings Gallbladder US: Clinical history: Right upper quadrant pain Technique: Sonography was performed of the right upper quadrant of the abdomen Findings: There is no sign of cirrhosis or significant fatty infiltration. No definite liver mass is seen Gallstones are present as well as gallbladder sludge. The gallbladder has a normal wall thickness and no adjacent fluid is seen. No definite sonographic Kim sign was detected. There is no intrahepatic or extrahepatic bile duct dilatation. The common bile duct measures 3 mm The right kidney measures 10.1 cm in length. There is no hydronephrosis. No definite renal calculus or mass is seen The visualized pancreas, aorta, and IVC appear unremarkable. No ascites is seen Impression: Cholelithiasis without evidence of acute cholecystitis ULTRASOUND KIDNEYS AND BLADDER CLINICAL HISTORY: Left-sided low back pain. COMPARISON STUDY: Renal ultrasound dated 06/30/2025. Abdominal CT dated 06/04/2025 TECHNIQUE: Real-time, grayscale, and color flow sonography of the kidneys and bladder is performed. Images are reviewed in the transverse and longitudinal planes. FINDINGS: Kidneys: The kidneys are normal in size and echotexture. The right kidney measures 10.7 x 4.0 x 5.2 cm and the left kidney measures 12.1 x 5.3 x 5.3 cm. There is no hydronephrosis. No shadowing renal calculi are identified. There is no sonographic evidence of contour deforming renal mass lesion. No perinephric fluid is identified. Bladder: The bladder is normal in appearance. Bilateral ureteral jets were seen. Upper abdomen: Survey imaging of the gallbladder shows cholelithiasis. There is no sonographic evidence of acute cholecystitis. IMPRESSION: 1. Normal sonographic examination of the kidneys and bladder. 2. Cholelithiasis. Clinical History: Pelvic pain Technique: Transabdominal and transvaginal pelvic sonography was performed Findings: A single live intrauterine gestation is seen. The heart rate is within normal limits at 163 bpm. No obvious anomaly is seen at this early stage. There is no sign of subchorionic hemorrhage. The crown-rump length is 1.47 cm. This represents an estimated gestational age of 7 weeks and 6 days No uterine mass lesion is seen. No free fluid is seen within the pelvis. The right ovary contains a 1.8 cm mixed hypoechoic and anechoic lesion. The left ovary appears normal. The cervix is closed. Impression: 1. Single live intrauterine with an estimated gestational age of 7 weeks and 6 days 2. Small complex right ovarian lesion, likely a proteinaceous or hemorrhagic corpus luteum cyst PG Care Time/CCT Total # of Minutes Spent Total Time Spent with Patient: Total time spent is greater than 50% in coordination of care (as documented) at patient's floor/unit and/or counseling patient: [place] [address] Office/OBS Consult Lvl 1 Patient Type New Medical Decision Making Straight Forward Diagnoses Right upper quadrant pain R10.11 Nausea and vomiting R11.2 Dehydration E86.0
[2025-07-12] MEDS ORDERED: ACETAMINOPHEN 500 MG TAB PO PRN (22:51)
[2025-07-12] MEDS ORDERED: PYRIDOXINE HCL 50 MG TAB PO PRN (22:51)
[2025-07-12] MEDS ORDERED: ALBUTEROL HFA 8 GM INHALER INH PRN (22:51)
[2025-07-12] MEDS ORDERED: METOCLOPRAMIDE HCL INJ 5 MG/ML 2 ML VIAL IV PRN (23:00)
[2025-07-12] MEDS: diphenhydrAMINE 50 MG/ML VIAL IV STA (23:25)
[2025-07-12] MEDS: PRENATAL VITAMIN 1 TAB PO SCH (23:49)
[2025-07-12] MEDS: CETIRIZINE HCL 10 MG TABLET PO SCH (23:50)
[2025-07-12] MEDS: NSS + 20MEQ KCL 20 MEQ/1,000 ML BAG IV SCH (23:51)
[2025-07-13] MEDS: cefTRIAXone SODIUM 1,000 MG/50 ML BAG IV SCH (05:50)
[2025-07-13 05:52] LABS: Hematocrit (blood only) 33.3 % (37.0-47.0); Hemoglobin 11.1 g/dl (12.0-16.0); Immature Granulocytes # (auto) 0.05 K/uL (0.01-0.20); Immature Granulocytes % (auto) 0.5 %; Mean Corpuscular Hemoglobin 29.1 pg (25.0-34.0); Mean Corpuscular Volume 87.4 fL (80.0-100.0); Platelet Count 412 K/uL (130-400); RDW Standard Deviation 40.3 fL (36.4-46.3); Red Blood Count 3.81 M/uL (4.20-5.40); White Blood Count 10.03 K/ul (4.8-10.8)
[2025-07-13] MEDS: diphenhydrAMINE 50 MG/ML VIAL IV PRN (06:06)
[2025-07-13 06:09] LABS: Alanine Aminotransferase 12.0 U/L (7-52); Albumin Globulin Ratio 1.2 (0.9-2); Albumin Level 3.2 gm/dl (3.4-5.0); Alkaline Phosphatase 51.0 U/L (34-104); Anion Gap 7.0 (3-11); Bilirubin,Total 0.3 mg/dl (0.2-1.0); Blood Urea Nitrogen 8.0 mg/dl (6-23); Calcium 8.5 mg/dl (8.6-10.3); Carbon Dioxide 21.0 mmol/L (21-32); Chloride 108.0 mmol/L (98-107); Creatinine Clr Calc Pharmacy 143.4 ml/min; Globulin 2.7 gm/dl (2.5-4.0); Glucose 85.0 mg/dl (70-99(Fasting)); Potassium 4.2 mmol/L (3.5-5.1); Sodium 136.0 mmol/L (136-145); Total Protein 5.9 gm/dl (6.0-8.3)
[2025-07-13] MEDS: PANTOprazole 40 MG/10 ML SYR IV SCH (08:41)
[2025-07-13] MEDS: ACETAMINOPHEN 1,000 MG/100 ML VIAL IV PRN (08:43)
--- NOTE | 2025-07-13 10:06 | Surgery Progress Note ---
Date of Service July 13, 2025 Assessment & Plan (1) Gallstones: Plan: Her ultrasound images and results were personally viewed and interpreted by myself She does have gallstones without any wall thickness or pericholecystic fluid and a negative Kim sign No signs of cholecystitis She is 7 weeks , would not operate as this would increase the risk of miscarriage unless she had cholecystitis We can see her after she delivers and she will likely need cholecystectomy at that time Surgery will sign off at this time, please call with any questions or concerns Admission and Anticipated Discharge Date Admission Date: July 12, 2025 Subjective Patient seen and examined. Feels better than on admission. Still with some l ower abdominal pain. Afebrile. Review of Systems Constitutional: no fever and no chills Respiratory: no cough and no dyspnea Cardiovascular: no chest pain and no dyspnea on exertion Gastrointestinal: + abdominal pain and + nausea; no vomiti ng Genitourinary: no dysuria and no difficulty urinating Integumentary: no acne and no sores Neurologic: no headache(s) and no confusion Psychiatric: no behavioral changes and no depression Hematologic / Lymphatic: no easy bleeding and no easy bruising Physical Exam Constitutional: WD/WN, vitals as above Eyes: PERRL, conjunctivae normal, anicteric sclerae Neck: trachea midline, no thyromegaly Respiratory: normal respiratory effort, lungs clear to auscultation Cardiovascular: RRR, no murmur, no edema Gastrointestinal (Abdomen): Inspection/Auscultation: abdomen normal to inspection; abdomen not distended Percussion/Palpation: + abdomen tender (Bilateral lower quadrants) and abdomen soft; no guarding Negative Kim's Musculoskeletal: no cyanosis or clubbing, extremities motor strength 5/5 Skin: no rashes, warm and dry Neurologic: PERRL, EOMI, accommodation nl, no face palsy, no dysarthria Psychiatric: A+Ox3, euthymic affect Results & Data Vital Signs (Past 12 Hours) Vital Signs Temp Pulse Resp BP BP Pulse Ox O2 Del Method 07/13/25 08:29 37.0 C 76 18 95/58 L 98 Room Air 07/12/25 23:08 36.7 C 79 20 111/70 98 Room Air 07/12/25 22:08 71 19 110/57 L 100 Room Air PG Care Time/CCT Total # of Minutes Spent Total Time Spent with Patient: Total time spent is greater than 50% in coordination of care (as documented) at patient's floor/unit and/or counseling patient: Coding Level of Care Code 23291 SUB INP/OBS CARE 2MIN Diagnoses Gallstones K80.20
[2025-07-13] MEDS: ONDANSETRON INJ 2 MG/ML 2 ML VIAL IV PRN (11:42)
[2025-07-13 12:49] VITALS: PULSE 87; RESP 17; TEMP 98.1; O2SAT 97
--- NOTE | 2025-07-13 13:07 | Discharge Summary ---
Discharge Summary Date of Service July 13, 2025 Principal Dx & Hospital Course #1 = Principal Diagnosis (1) Right upper quadrant pain: (2) Nausea and vomiting: (3) Dehydration: (4) Early stage of : Sisi Pappas is a 29 year old female observed overnight at [facility] due to abdominal pain. No clear etiology for her pain was found but possible cholelithiasis (although the majority of her pain was lower and left abdominal) or ureterolithiasis (recent history of this) may be the cause. Ovarian torsion not seen on TV ultrasound. No cholecystitis suspected on repeat exam, ultrasound and labs improved overnight with normal LFTs/ Since the pain has resolved no further investigations are recommended at this time. Recommend staying on a low fat diet and keeping well hydrated. Take acetaminophen as needed for pain. Recommend avoiding non steroidal anti-inflammatories during your unless otherwise advised by your tribal judge due to increased risk of miscarriage in the first trimester. Admission HPI Per Admitting Provider The patient is a 29-year-old female with past medical history including ulcerative colitis in remission, GERD, pyelonephritis, allergy symptoms, and asthma. She presents to the emergency department with complaint of nausea, vomiting, right upper quadrant pain, and decreased urination in particular worsening over the past 24 hours. Workup in the emergency department included a renal ultrasound which was negative, ultrasound which showed a single gestation 7 weeks and 6 days, and a gallbladder ultrasound which showed cholelithiasis without evidence of acute cholecystitis. Laboratories were significant for elevated white blood cell count of 19.83, hemoglobin of 12.8 and hematocrit 37.9, and platelets of 548. [facility] with consult to general surgery. Discharge Exam Constitutional WD/WN, vitals as above Respiratory normal respiratory effort, lungs clear to auscultation Cardiovascular RRR, no murmur, no edema Gastrointestinal (Abdomen) normal bowel sounds, soft, nontender, no hepatosplenomegaly Discharge Plan Discharge Items Patient Disposition: Home - Self-Care Reason For Visit: DEHYDRATION, RUQ PAIN Discharge Diagnosis: Abdominal pain - possible cholelithiasis (gallstones) vs ureterolithiasis (kidney stones) Condition on Discharge: Fair Activity: Resume your previous activity Non-emergency contact: Primary Care Provider Call non-emergency contact if: you have any medication questions and your symptoms worsen Follow-up/Referrals: Melody Jerome DO [Primary Care Provider] - Diet: Regular Addtl Attending Provider Instructions: You were observed overnight at [facility] due to abdominal pain. No clear etiology for your pain was found but possible cholelithiasis (gallstones) or ureterolithiasis (kidney stones) may be the cause. Recommend staying on a low fat diet and keeping well hydrated. Take acetaminophen as needed for pain. Recommend avoiding non steroidal anti-inflammatories during your unless otherwise advised by your tribal judge due to increased risk of miscarriage. Pending Studies at Discharge: No Stand-Alone Forms: [facility], Smoking Cessation Medications and DC Order Prescriptions: Continued esomeprazole magnesium 20 mg capsule,delayed release(DR/EC) 20 mg PO QPM epinephrine 0.3 mg/0.3 mL auto-injector 0.3 mg IM Q15M PRN (Reason: anaphylaxis) Qty: 2 0RF (DME) inhalational spacing device Spacer See Rx Instructions .ROUTE .MEDSUPPLY Qty: 1 0RF Rx Instructions: As directed cetirizine [Zyrtec] 10 mg Tablet 10 mg PO QPM acetaminophen 500 mg Tablet 1,000 mg PO Q6H PRN (Reason: Pain) ondansetron 4 mg tablet,disintegrating 4 mg PO Q6H PRN (Reason: nausea and vomiting) Qty: 14 0RF fluoxetine 10 mg capsule 10 mg PO QPM Rx Instructions: Take w/ 20mg to equal 30mg fluoxetine 20 mg capsule 20 mg PO QPM Rx Instructions: Take w/ 10mg to equal 30mg PNV no.95-ferrous fumarate-FA [] 28 mg iron- 800 mcg Tablet 1 tab PO QPM Vitamin B-6 1 tab PO QPM PRN (Reason: to help with nausea) Rx Instructions: dose unknown albuterol sulfate 90 mcg/actuation HFA aerosol inhaler 2 puff INHALATION Q4 PRN (Reason: Shortness Of Breath Or Wheezing) mesalamine 1.2 gram tablet,delayed release (DR/EC) 4.8 g PO QPM Discharge Orders: Discharge Order (Routine); Ordered 07/13/25 Ordered By: Drew Gamez Admission Data Admit Date/Time: 07/12/25 20:12 Attending Provider: Drew Gamez Admit Provider: Ozzy Saxena Primary Care Provider: Melody Jerome Other Providers: Jaun Florence Other Interventions: Discharge Summary Assessment (RN) Last Done: 07/13/25 14:33 Hospital Stay Data Consultations 07/12/25 19:39 ED Decision to Admit Stat Diagnostic Imagining Performed 07/12/25 US OB transvaginal Routine 07/12/25 13:37 US Renal Bladder [US renal/blad retro comp] Stat 07/12/25 16:22 US gallbladder Stat 07/12/25 16:24 US OB <= 14 weeks fetus Stat Pending Results Patient Have Any Pending Studies at Discharge: No Discharge Instructions Given to Patient (Per Discharging Provider) You were observed overnight at [facility] due to abdominal pain. No clear etiology for your pain was found but possible cholelithiasis (gallstones) or ureterolithiasis (kidney stones) may be the cause. Recommend staying on a low fat diet and keeping well hydrated. Take acetaminophen as needed for pain. Recommend avoiding non steroidal anti-inflammatories during your unless otherwise advised by your tribal judge due to increased risk of miscarriage. Total Time Total Time Spent Total Time Spent (In Minutes): 40 Total Time Includes: Examination of the Patient, Discharge Planning, Medication Reconciliation and Communication With Other Providers Coding Level of Care Code 33777 INP/OBS DISCH >30 MIN Diagnoses Right upper quadrant pain R10.11 Nausea and vomiting R11.2 Dehydration E86.0 Early stage of Z34.90
[2025-07-13 14:34] VITALS: BP 111/70
== END 2025-07-13 14:48 | disposition home or self-care (01) ==
LOC: 2N 13:02 → ED 13:02 → SUATTDRO 20:12 → 2N 22:21

== ENCOUNTER 2025-08-15 16:41 | Inpatient (IN) ==
[2025-08-15 17:34] LABS: Appearance Urine Clear (Clear); Glucose Urine UA Negative (Negative)
[2025-08-15 17:43] LABS: Hematocrit (blood only) 39.5 % (37.0-47.0); Hemoglobin 13.8 g/dL (12.0-16.0); Immature Granulocytes # (auto) 0.04 K/uL (0.01-0.20); Immature Granulocytes % (auto) 0.4 %; Mean Corpuscular Hemoglobin 30.8 pg (25.0-34.0); Mean Corpuscular Volume 88.2 fL (80.0-100.0); Platelet Count 384 K/uL (130-400); RDW Standard Deviation 42.4 fL (36.4-46.3); Red Blood Count 4.48 M/uL (4.20-5.40); White Blood Count 10.48 K/ul (4.8-10.8)
[2025-08-15 17:57] LABS: Alanine Aminotransferase 11.0 U/L (7-52); Albumin Globulin Ratio 1.2 (0.9-2); Albumin Level 4.3 gm/dl (3.4-5.0); Alkaline Phosphatase 55.0 U/L (34-104); Anion Gap 10.0 (3-11); Bilirubin,Total 0.3 mg/dl (0.2-1.0); Blood Urea Nitrogen 10.0 mg/dl (6-23); Calcium 9.7 mg/dl (8.6-10.3); Carbon Dioxide 25.0 mmol/L (21-32); Chloride 100.0 mmol/L (98-107); Creatinine Clr Calc Pharmacy 132.7 ml/min; Globulin 3.5 gm/dl (2.5-4.0); Glucose 85.0 mg/dl (70-99(Fasting)); Potassium 4.2 mmol/L (3.5-5.1); Sodium 135.0 mmol/L (136-145); Total Protein 7.8 gm/dl (6.0-8.3)
[2025-08-15] MEDS: ACETAMINOPHEN 1,000 MG/100 ML VIAL IV STA (18:27)
[2025-08-15] MEDS: diphenhydrAMINE 50 MG/ML VIAL IV STA ×2 (18:27→22:23)
[2025-08-15] MEDS: ONDANSETRON INJ 2 MG/ML 2 ML VIAL IV STA ×2 (18:27→22:23)
[2025-08-15] MEDS: SODIUM CHLORIDE 0.9% 1,000 ML IV ONE (18:27)
--- NOTE | 2025-08-15 18:49 | Emergency Department Note ---
Impression & Plan Abdominal pain, Nausea & vomiting, ED Provider Note ED Provider Note NAME: EDDA PAPPAS AGE:29 SEX: Female : 1995 ARRIVES VIA: private vehicle INFORMANT: Patient ED PROVIDER(s): Lori Chapman DO CHIEF COMPLAINT: Central lower abdominal pain, nausea and vomiting, HPI: This is a 29-year-old female G3, P1 at 12 weeks who presents to the emergency department due to ongoing lower abdominal pain. Patient has been seen here in the ER several times recently. Her initial visits were concerning as she had accompanying vaginal bleeding and they were concerned for possible miscarriage. Patient states she did have a follow-up appoint with [employer] in the office yesterday and a repeat ultrasound was reassuring. She states she has not had any more vaginal bleeding but she does have persistent pain in her lower abdomen as well as some mild low back pain. Patient states during her evaluation with OB yesterday they discussed possibility of renal or GI etiology of her pain and she was recommended to come to the emergency department if her pain persisted or worsen PAST MEDICAL HISTORY:See Below PAST SURGICAL HISTORY:See Below FAMILY HISTORY:See Below SOCIAL HISTORY:See Below HOME MEDICATIONS:See Below ALLERGIES:See Below VITALS:See Below PHYSICAL EXAMINATION: GENERAL: alert, well appearing, well nourished, no distress, non-toxic EYE EXAM: normal conjunctiva, PERRL and EOM's grossly intact OROPHARYNX: no exudate, no erythema, lips, buccal mucosa, and tongue normal and mucous membranes are moist NECK: supple, no nuchal rigidity, no adenopathy, non-tender LUNGS: Clear to auscultation. Normal chest wall mechanics, no w/r/r HEART: no murmurs, S1 normal and S2 normal ABDOMEN: abdomen soft, non-tender, normo-active bowel sounds, no masses, no rebound or guarding. BACK: Back is symmetrical on inspection and there is no deformity, no midline tenderness, no CVA tenderness. SKIN: no rashes, petechiae, orbruising UPPER EXTREMITIES: upper extremities are grossly normal. FROM, nml pulses b/l. LOWER EXTREMITIES: No pitting edema. FROM, nml pulses b/l. NEURO EXAM: Normal sensorium, cranial nerves II-XII grossly intact, normal speech, no facial droop,nogross weakness of arms, no gross weakness of legs. Gross sensation intact. No ataxia. Vital Signs: reviewed and remarkable Differential Diagnosis: related pain, UTI, ureterolithiasis, colitis, constipation, dehydration, musculoskeletal pain, as well as others were considered MEDICAL DECISION MAKING: This is a 29-year-old female 12 weeks gestation who presents to the ongoing lower abdominal pain. Case discussed with [employer] as she had recently been seen in the ER and was evaluated by them in follow-up. Labs drawn and sent, IV established, urine collected and sent for analysis and after discussion at bedside patient sent for renal ultrasound. heart sounds performed at bedside and were reassuring. Patient given IV fluids and after discussion of prior medications for her pain and nausea was given IV Zofran, IV Benadryl, and IV Dilaudid. Patient's labs and imaging were reassuring. She did have some returning symptoms of pain and nausea after ultrasound. I discussed the case with [employer] again via [employer] text who recommended admission for observation and symptomatic control. At this time I do not suspect flare of her UC, bowel obstruction, or other acute GI etiology. No evidence of renal pathology. Case discussed with hospitalist team for additional evaluation and management. Consultation(s): 1829: Discussed with Dr. Watters, recorder of deeds via tiger text. 2204: Discussed with Dr. Terry, hospitalist team, for additional evaluation and management. ER Treatment Provided: See below Diagnostics Interpreted By Me: -Cardiac Monitoring: An order was placed for continuous cardiac monitoring. The monitor shows a rate of 80 with normal sinus rhythm. -Laboratory studies: As stated above and show below. -Imaging studies: US renal: no stone, no hydro Triage Nursing Note Reviewed Prior/Outside Records Reviewed-outpatient OB visit and ultrasound from yesterday reviewed Past Med/Surg History Problem List (Updated 08/16/25 @ 00:46 by Florina Terry DO) (Acute) Nausea & vomiting (Acute) Abdominal pain (Acute) Pelvic pain (Acute) Threatened miscarriage (Acute) Vaginal bleeding in patient after first trimester (Acute) Sinusitis (Acute) Left breast lump Panic disorder (Acute) Paralytic ileus of large intestine Anxiety (Acute) Gallstones (Chronic) Eosinophilic esophagitis (Chronic) Ulcerative colitis in remission (Chronic) Medical History Nephrolithiasis Nausea and vomiting Ulcerative colitis Diarrhea Pyelonephritis OCD (obsessive compulsive disorder) Varicella vaccination Hidradenitis suppurativa Mild persistent asthma Femoroacetabular impingement Labral tear of left hip joint Labral tear of right hip joint History of anesthesia reaction "when she goes to sleep, she is always panicked" Hidradenitis suppurativa Ovarian cyst hx Surgical History History of hip surgery (02/2025) right labral tear and left S/P endoscopy S/P wisdom tooth extraction S/P dilatation and curettage S/P colonoscopy H/O flexible sigmoidoscopy Family History Grandmother (Maternal) Breast cancer Maternal grandmother, maternal great grandmother Aunt Crohn's disease Ovarian cancer maternal great aunt Grandfather (Paternal) Lung disease Denies family history of Colorectal cancer Social History Smoking Status: Former smoker Tobacco Type: Cigarettes Age Started Using Tobacco: 20; Age Quit Using Tobacco: 27; packs per day: 0.25; Second Hand Exposure: No; Do You Dip or Chew Tobacco: No; Hx Alcohol Use: No Hx Substance Use: No Preferred Language: Greenlandic Communication Ability: Effective Heel Pricker Required: No Beliefs That Will Affect Care: None marital status: marital status details: Malick Pappas (25) [phone] Current Living Situation: Spouse Current Living Situation Comment: lives with spouse and daughter current occupational status: unemployed Feels Safe at Home: Yes Safety Concerns: Feels Safe At This Time Assistive Devices: None Allergies Allergies Allergy/AdvReac Type Severity Reaction Status Date / Time banana Allergy Severe throat Verified 08/14/25 13:40 closes, hives, throwing up shellfish derived Allergy Severe throat Verified 08/14/25 13:40 closes, hives, throwing up oxycodone AdvReac Severe Vomiting Verified 08/14/25 13:40 metoclopramide AdvReac Unknown reacts Verified 08/14/25 13:40 with prozac per pt Home Meds Home Medications Medication Instructions Recorded Confirmed cetirizine 10 mg tablet (Zyrtec) 10 mg PO QPM 12/26/23 08/15/25 esomeprazole magnesium 20 mg 20 mg PO QPM 02/05/24 08/15/25 capsule,delayed release fluoxetine 10 mg capsule 10 mg PO QPM 04/22/25 08/15/25 fluoxetine 20 mg capsule 20 mg PO QPM 04/22/25 08/15/25 acetaminophen 500 mg tablet 1,000 mg PO Q6H PRN Pain 06/04/25 08/15/25 vit no.95-ferrous 1 tab PO QPM 06/28/25 08/15/25 fumarate 28 mg-folic acid 800 mcg tablet () albuterol sulfate 90 mcg/actuation 2 puff inhalation Q4 PRN Shortness 07/12/25 08/15/25 aerosol inhaler Of Breath Or Wheezing mesalamine 1.2 gram tablet,delayed 4.8 g PO QPM 07/12/25 08/15/25 release budesonide-formoterol HFA 80 2 puff inhalation QPM 08/12/25 08/15/25 mcg-4.5 mcg/actuation aerosol inhaler diphenhydramine HCl 50 mg capsule 25 mg PO HS PRN Nausea 08/12/25 08/15/25 (Unisom SleepGels) pyridoxine (vitamin B6) 100 mg 100 mg PO DAILY 08/12/25 08/15/25 tablet (Vitamin B-6) Previous Rx's Medication Instructions Recorded epinephrine 0.3 mg/0.3 mL 0.3 mg (0.3 mL) IM Q15M PRN 06/02/24 injection, auto-injector anaphylaxis #2 ea inhalational spacing device #1 ea 06/02/24 ondansetron 4 mg disintegrating 4 mg PO Q6H PRN nausea and 06/04/25 tablet vomiting #14 tabs amoxicillin 875 mg-potassium 1 tab PO BID #14 tabs 08/09/25 clavulanate 125 mg tablet tramadol 25 mg tablet 25 mg PO Q6H PRN pain #15 tabs 08/12/25 hydromorphone 2 mg tablet 2 mg PO Q4H PRN pain (scale score 08/14/25 (Dilaudid) 7-10) #7 tabs Results & Data (ED) Vital Signs Vital Signs - 24 hr 08/15/25 16:48 08/15/25 18:27 08/15/25 18:30 Temperature 36.1 C L Temperature Source Temporal Artery Scan Pulse Rate 91 H 83 82 Pulse Rate from SpO2 Sensor 83 85 Respiratory Rate 18 24 12 Respiratory Effort / Characteristics Non-Labored Spontaneous Respiratory Depth Normal Respiratory Pattern Regular Blood Pressure 114/74 100/68 100/61 Blood Pressure Mean 87 78 74 Blood Pressure Position Sitting Pulse Oximetry 98 100 100 Oxygen Delivery Method Room Air Room Air Room Air Sepsis Recent Fever Within 48 Hours No Sepsis New/Unexplained Change in Mental Status No Sepsis Action Taken by Nursing No Action Required 08/15/25 18:42 08/15/25 18:42 08/15/25 19:00 Temperature Temperature Source Pulse Rate 81 78 80 Pulse Rate from SpO2 Sensor 78 80 Respiratory Rate 22 14 Respiratory Effort / Characteristics Respiratory Depth Respiratory Pattern Blood Pressure 102/69 Blood Pressure Mean 80 Blood Pressure Position Pulse Oximetry 100 100 Oxygen Delivery Method Room Air Sepsis Recent Fever Within 48 Hours Sepsis New/Unexplained Change in Mental Status Sepsis Action Taken by Nursing 08/15/25 21:30 08/15/25 21:42 08/15/25 22:00 Temperature Temperature Source Pulse Rate 78 80 75 Pulse Rate from SpO2 Sensor 78 81 74 Respiratory Rate 17 23 17 Respiratory Effort / Characteristics Respiratory Depth Respiratory Pattern Blood Pressure 100/59 L 107/61 110/56 L Blood Pressure Mean 72 76 74 Blood Pressure Position Pulse Oximetry 99 99 100 Oxygen Delivery Method Room Air Room Air Room Air Sepsis Recent Fever Within 48 Hours Sepsis New/Unexplained Change in Mental Status Sepsis Action Taken by Nursing 08/15/25 22:12 08/15/25 22:30 Temperature Temperature Source Pulse Rate 83 79 Pulse Rate from SpO2 Sensor 81 80 Respiratory Rate 22 16 Respiratory Effort / Characteristics Respiratory Depth Respiratory Pattern Blood Pressure 110/56 L 105/59 L Blood Pressure Mean 74 74 Blood Pressure Position Pulse Oximetry 98 97 Oxygen Delivery Method Room Air Room Air Sepsis Recent Fever Within 48 Hours Sepsis New/Unexplained Change in Mental Status Sepsis Action Taken by Nursing Laboratory Data 08/15/25 17:22 08/15/25 17:22 Lab Results 08/15/25 Range/Units 17:22 WBC 10.48 (4.8-10.8) K/ul RBC 4.48 (4.20-5.40) M/uL Hgb 13.8 (12.0-16.0) g/dL Hct 39.5 (37.0-47.0) % MCV 88.2 (80.0-100.0) fL MCH 30.8 (25.0-34.0) pg MCHC 34.9 (32.0-36.0) g/dL RDW Std Deviation 42.4 (36.4-46.3) fL RDW Coeff of Taty 13.1 (11.5-14.5) % Plt Count 384 (130-400) K/uL MPV 9.5 (9.4-12.4) fL Immature Gran % (Auto) 0.4 % Neut % (Auto) 65.6 % Lymph % (Auto) 24.0 % [place] % (Auto) 4.9 % Eos % (Auto) 4.4 % Baso % (Auto) 0.7 % Neut # (Auto) 6.88 H (1.40-6.50) K/uL Lymph # (Auto) 2.52 (1.20-3.40) K/uL [place] # (Auto) 0.51 (0.11-0.59) K/uL Eos # (Auto) 0.46 (0.00-0.50) K/uL Baso # (Auto) 0.07 (0.00-0.20) K/uL Immature Gran # (Auto) 0.04 (0.01-0.20) K/uL Sodium 135 L (136-145) mmol/L Potassium 4.2 (3.5-5.1) mmol/L Chloride 100 (98-107) mmol/L Carbon Dioxide 25 (21-32) mmol/L Anion Gap 10 (3-11) BUN 10 (6-23) mg/dl Creatinine 0.54 L (0.6-1.2) mg/dl Est Cr Clr Drug Dosing 132.7 ml/min eGFR 127.73 BUN/Creatinine Ratio 18.5 (10-20) Glucose 85 (70-99(Fasting)) mg/dl Calcium 9.7 (8.6-10.3) mg/dl Total Bilirubin 0.3 (0.2-1.0) mg/dl AST 21 (13-39) U/L ALT 11 (7-52) U/L Alkaline Phosphatase 55 (34-104) U/L Total Protein 7.8 (6.0-8.3) gm/dl Albumin 4.3 (3.4-5.0) gm/dl Globulin 3.5 (2.5-4.0) gm/dl Albumin/Globulin Ratio 1.2 (0.9-2) Urine Color Yellow Urine Appearance Clear (Clear) Urine pH 6.5 (4.5-7.5) Ur Specific [place] 1.007 (1.000-1.030) Urine Protein Negative (Negative) Urine Glucose (UA) Negative (Negative) Urine Ketones Negative (Negative) Urine Blood Negative (Negative) Urine Nitrite Negative (Negative) Urine Bilirubin Negative (Negative) Urine Urobilinogen Negative (Negative) Ur Leukocyte Esterase Negative (Negative) Urine Comment Administered Medications Lactated Ringer's (Lr) 1,000 mls @ 80 mls/hr IV .[id number] RICK Stop: 08/17/25 00:57 Last Admin: 08/16/25 00:32 Dose: 80 mls/hr Documented By: LB Discontinued Medications Diphenhydramine HCl (Diphenhydramine 50 Mg/Ml Vial) 25 mg IV NOW STA Stop: 08/15/25 18:19 Last Admin: 08/15/25 18:27 Dose: 25 mg Documented By: JENNIFER Diphenhydramine HCl (Diphenhydramine 50 Mg/Ml Vial) 25 mg IV NOW STA Stop: 08/15/25 22:10 Last Admin: 08/15/25 22:23 Dose: 25 mg Documented By: JENNIFER Hydromorphone HCl (Hydromorphone Inj 0.5 Mg/0.5 Ml Syr) 0.25 mg IV NOW STA Stop: 08/15/25 18:37 Last Admin: 08/15/25 18:55 Dose: 0.25 mg Documented By: JENNIFER Hydromorphone HCl (Hydromorphone Inj 0.5 Mg/0.5 Ml Syr) 0.25 mg IV NOW STA Stop: 08/15/25 22:10 Last Admin: 08/15/25 22:22 Dose: 0.25 mg Documented By: JENNIFER Acetaminophen (Ofirmev) 1,000 mg in 100 mls @ 400 mls/hr IV NOW STA Stop: 08/15/25 18:29 Last Infusion: 08/15/25 18:48 Dose: Infused Documented By: Admin: 08/15/25 18:27 Dose: 400 mls/hr Documented By: JENNIFER Sodium Chloride (Nss) 1,000 mls @ 999 mls/hr IV .Q1H1M ONE Stop: 08/15/25 19:15 Last Infusion: 08/15/25 20:05 Dose: Infused Documented By: Admin: 08/15/25 18:27 Dose: 999 mls/hr Documented By: JENNIFER Ondansetron HCl (Ondansetron Inj 2 Mg/Ml 2 Ml Vial) 4 mg IV NOW STA Stop: 08/15/25 18:19 Last Admin: 08/15/25 18:27 Dose: 4 mg Documented By: JENNIFER Ondansetron HCl (Ondansetron Inj 2 Mg/Ml 2 Ml Vial) 4 mg IV NOW STA Stop: 08/15/25 22:10 Last Admin: 08/15/25 22:23 Dose: 4 mg Documented By: JENNIFER Imaging Data Radiologist's Impression: Renal Ultrasound 08/15/25 18:15 EXAM: Renal ultrasound/retroperitoneum complete COMPARISON: 07/19/2025 CLINICAL HISTORY: Lower abdominal pain, history of stones. Patient 13 weeks . TECHNIQUE: Ultrasound interrogation of the kidneys was performed with grayscale and color Doppler imaging. FINDINGS: The kidneys are normal in size, configuration and echogenicity. The right kidney measures 11.3 cm in length. Mild pelviectasis. No hydronephrosis, calculus or mass. The left kidney measures 12.3 cm. Mild pelviectasis. No hydronephrosis, calculus or mass. Urinary bladder partly distended and morphologically unremarkable. Bilateral ureteral jets were not identified. IMPRESSION: Mild bilateral pelvic fullness/pelviectasis without hydronephrosis, hydroureter or discrete calculus identified. The ureteral jets were not identified during this examination. ACT 112: Positive. There are findings on this examination that require communication between the performing entity and the patient following Patient Test Result Information Act ([place] ACT 112) guidelines. Electronically signed by Sunshine Menon 08-15-2025 7:51 PM Discharge Plan Visit Data Chief Complaint: Referred by Doctor Stated Complaint: SENT BY OB (~12 WKS PREG), ABD+BACK PAIN, VOMIT ED Provider: Lori Chapman Discharge Problem: Abdominal pain, Nausea & vomiting, Patient Disposition: Admitted As Inpatient Condition: Fair Discharge Instructions Interventions: ED Discharge Assessment Last Done: 08/15/25 23:05
[2025-08-15] MEDS: HYDROmorphone INJ 0.5 MG/0.5 ML SYR IV STA ×2 (18:55→22:22)
--- NOTE | 2025-08-15 19:51 | Ultrasound Report ---
EXAM: Renal ultrasound/retroperitoneum complete COMPARISON: 07/19/2025 CLINICAL HISTORY: Lower abdominal pain, history of stones. Patient 13 weeks . TECHNIQUE: Ultrasound interrogation of the kidneys was performed with grayscale and color Doppler imaging. FINDINGS: The kidneys are normal in size, configuration and echogenicity. The right kidney measures 11.3 cm in length. Mild pelviectasis. No hydronephrosis, calculus or mass. The left kidney measures 12.3 cm. Mild pelviectasis. No hydronephrosis, calculus or mass. Urinary bladder partly distended and morphologically unremarkable. Bilateral ureteral jets were not identified. IMPRESSION: Mild bilateral pelvic fullness/pelviectasis without hydronephrosis, hydroureter or discrete calculus identified. The ureteral jets were not identified during this examination. ACT 112: Positive. There are findings on this examination that require communication between the performing entity and the patient following Patient Test Result Information Act ([place] ACT 112) guidelines. Electronically signed by Sunshine Menon 08-15-2025 7:51 PM
--- NOTE | 2025-08-15 22:27 | History & Physical Report ---
Date of Service August 15, 2025 Assessment & Plan (1) Abdominal pain: (2) Nausea & vomiting: (3) : (4) Sinusitis: (5) Ulcerative colitis in remission: Plan 29yo female [id number] at 12.5 weeks gestation presenting with ongoing lower abdominal and flank pain as well as nausea and vomiting. heart tones auscultated in the ER and found to be normal. #Nausea/Vomiting/Abdominal Pain - etiology unclear at this time. Possibly secondary to renal stone, patient with history of similar in the past. Renal ultrasound with no obvious stone but does reveal mild bilateral pelvic fullness/pelviectasis which may be secondary to UPJ obstruction. Urinalysis is pristine - no evidence of infection, inflammation or blood. -Observation to medical -Gentle IVF - LR at 80mL/hr x 2 L -Zofran PRN pain -Tylenol PRN pain or fever -Dilaudid 0.25 - 0.5mg IV q 3 hours as needed for pain -Colace as needed for constipation -Urine strainer -Bladder scan as needed # -Continue vitamins -Benadryl, Vitamin B6 as needed for nausea - heart tones q shift -Obstetrics consultation appreciated re: any additional testing or monitoring that may be necessary at this time #Asthma - chronic, controlled -Fluticasone/Vilanterol qPM -Albuterol PRN -Cetirizine 10mg po qPM #Anxiety/Panic disorder -Continue Prozac 30mg po q PM #Sinusitis - patient recently diagnosed with this. Was started on 7 day course of Augmentin. Remains largely asymptomatic. No laboratory evidence of infection -Will DC Augmentin #Ulcerative Colitis - patient is on Mesalamine 1.2gm po qPM -Continue home medication - patient may need to bring this from home F/E/N- LR at 80mL/hr x 2L, monitor Na, Regular diet as tolerated Ppx - SCDs to bilateral LE Code -Full Dispo - Observation to medical History of Present Illness Chief Complaint: lower abdominal pain, back discomfort Primary Care Provider: DO Blossom Vicente Mian is a 29yo [id number] at 12.5 weeks of presenting with lower abdominal pain and back pain. Patient with history of UC for which she takes Mesalamine. Reports that on 08/09/25 she developed some lightheadedness, black spots in her vision and had a syncopal event. She was seen in the ER and diagnosed with acute sinusitis. She was started on Augmentin and discharged home. She returned to the ER on 08/12/25 with complaint of pelvic pain/cramping and vaginal bleeding. Patient had an ultrasound performed in the ER and found to have a single live intrauterine gestation. She was told to take Tylenol for discomfort and was ultimately discharged home. Patient again seen in the ER on 08/13/25 with complaint of pelvic pain and bleeding. She had a bedside ultrasound which revealed good heart sounds and movement. She was given Dilaudid in the ER as well as Benadryl, NSS, Zofran. She was ultimately discharged home with Tramadol 50mg home pack. Patient was seen by OB on 08/14/25 She returns to the ER this evening with complaint of persistent, severe lower abdominal discomfort - 04/06. Also with significant ongoing nausea with vomiting and decreased oral intake. OB called patient to check on her today around 14:00 and she told them of her ongoing discomfort and was subsequently instructed to come to the ER. Patient reports that her vaginal bleeding has stopped. She denies fever but has had occasional chills. No dysuria. No chest pain, cough, SOB. She had some diarrhea on 08/13/25 which is typical for her UC - no blood. She took a Mesalamine suppository and has not had a BM since. Pain is severe, lower abdominal with occasional radiation into the flanks bilaterally. Occasional back pain L > R. She reports some pelvic cramping with urination as well as some difficulty starting her urinary stream. Feels that she is unable to fully empty her bladder. Possibly passing some urinary sediment. She took some Tramadol at home which provided some relief. Was unable to fill her PO Dilaudid prescription. Feels that symptoms are somewhat similar to when she had a kidney stone in early June. At that time she reports urinating with a weak stream, then the stream stopped and she heard a "plop" in the commode then her urinary stream immediately increased and her pain resolved. In the ER patient is afebrile, HD stable ER Course: Tylenol NSS x 1L Benadryl Zofran Dilaudid 0.25 + 0.25mg IV Allergies Allergy/AdvReac Type Severity Reaction Status Date / Time banana Allergy Severe throat Verified 08/14/25 13:40 closes, hives, throwing up shellfish derived Allergy Severe throat Verified 08/14/25 13:40 closes, hives, throwing up oxycodone AdvReac Severe Vomiting Verified 08/14/25 13:40 metoclopramide AdvReac Unknown reacts Verified 08/14/25 13:40 with prozac per pt Home Medications Medication Instructions Recorded Confirmed Type cetirizine 10 mg tablet (Zyrtec) 10 mg PO QPM 12/26/23 08/15/25 History esomeprazole magnesium 20 mg 20 mg PO QPM 02/05/24 08/15/25 History capsule,delayed release epinephrine 0.3 mg/0.3 mL 0.3 mg (0.3 mL) IM Q15M PRN 06/02/24 08/15/25 Rx injection, auto-injector anaphylaxis #2 ea inhalational spacing device #1 ea 06/02/24 08/14/25 Rx fluoxetine 10 mg capsule 10 mg PO QPM 04/22/25 08/15/25 History fluoxetine 20 mg capsule 20 mg PO QPM 04/22/25 08/15/25 History acetaminophen 500 mg tablet 1,000 mg PO Q6H PRN Pain 06/04/25 08/15/25 History ondansetron 4 mg disintegrating 4 mg PO Q6H PRN nausea and 06/04/25 08/15/25 Rx tablet vomiting #14 tabs vit no.95-ferrous 1 tab PO QPM 06/28/25 08/15/25 History fumarate 28 mg-folic acid 800 mcg tablet () albuterol sulfate 90 mcg/actuation 2 puff inhalation Q4 PRN Shortness 07/12/25 08/15/25 History aerosol inhaler Of Breath Or Wheezing mesalamine 1.2 gram tablet,delayed 4.8 g PO QPM 07/12/25 08/15/25 History release amoxicillin 875 mg-potassium 1 tab PO BID #14 tabs 08/09/25 08/15/25 Rx clavulanate 125 mg tablet budesonide-formoterol HFA 80 2 puff inhalation QPM 08/12/25 08/15/25 History mcg-4.5 mcg/actuation aerosol inhaler diphenhydramine HCl 50 mg capsule 25 mg PO HS PRN Nausea 08/12/25 08/15/25 History (Unisom SleepGels) pyridoxine (vitamin B6) 100 mg 100 mg PO DAILY 08/12/25 08/15/25 History tablet (Vitamin B-6) tramadol 25 mg tablet 25 mg PO Q6H PRN pain #15 tabs 08/12/25 08/15/25 Rx hydromorphone 2 mg tablet 2 mg PO Q4H PRN pain (scale score 08/14/25 08/14/25 Rx (Dilaudid) 7-10) #7 tabs Past Med/Surg History Problem List (Updated 08/16/25 @ 00:46 by Florina Terry DO) (Acute) Nausea & vomiting (Acute) Abdominal pain (Acute) Pelvic pain (Acute) Threatened miscarriage (Acute) Vaginal bleeding in patient after first trimester (Acute) Sinusitis (Acute) Left breast lump Panic disorder (Acute) Paralytic ileus of large intestine Anxiety (Acute) Gallstones (Chronic) Eosinophilic esophagitis (Chronic) Ulcerative colitis in remission (Chronic) Medical History Nephrolithiasis Nausea and vomiting Ulcerative colitis Diarrhea Pyelonephritis OCD (obsessive compulsive disorder) Varicella vaccination Hidradenitis suppurativa Mild persistent asthma Femoroacetabular impingement Labral tear of left hip joint Labral tear of right hip joint History of anesthesia reaction "when she goes to sleep, she is always panicked" Hidradenitis suppurativa Ovarian cyst hx Surgical History History of hip surgery (02/2025) right labral tear and left S/P endoscopy S/P wisdom tooth extraction S/P dilatation and curettage S/P colonoscopy H/O flexible sigmoidoscopy Family History Grandmother (Maternal) Breast cancer Maternal grandmother, maternal great grandmother Aunt Crohn's disease Ovarian cancer maternal great aunt Grandfather (Paternal) Lung disease Denies family history of Colorectal cancer Social History Smoking Status: Former smoker Tobacco Type: Cigarettes Age Started Using Tobacco: 20; Age Quit Using Tobacco: 27; packs per day: 0.25; Second Hand Exposure: Yes; Do You Dip or Chew Tobacco: No; Hx Alcohol Use: No Hx Substance Use: No Preferred Language: Tristanian Communication Ability: Effective Compound Worker Required: No Beliefs That Will Affect Care: None marital status: marital status details: Malick Pappas (25) [phone] Current Living Situation: Family Current Living Situation Comment: lives with spouse and daughter current occupational status: unemployed Feels Safe at Home: Yes Assistive Devices: None Review of Systems Review of Systems: All systems reviewed & are unremarkable except as noted in HPI & below Physical Exam Physical Exam: General: patient resting comfortably, NAD, non-toxic in appearance, AA&O x 4 Skin: warm, dry, intact, no rashes or lesions HEENT: NC/AT, PERRL, EOMI, anicteric sclera, conjunctiva without injection, external ear normal to inspection and nontender, nares patent, moist mucus membranes, dentition intact, no oropharyngeal lesions, neck supple, trachea midline, no LAD, no thyromegaly, no JVD Heart: +S1/S2, regular, no m/r/g Lungs: equal air entry bilaterally, no rales/rhonchi/wheezes Abd: +BS, soft, ND, tenderness in lower abdomen with some voluntary guarding, no masses/organomegaly/ascites Ext: warm, 2+ pulses in UE/LE bilaterally, no clubbing/cyanosis or edema Neuro: nonfocal, patient AA&O x 4, speech intact, no facial droop, moving all extremities on command with equal strength 5/5 Results & Data Results & Data Vital Signs (Past 12 Hours) Vital Signs Temp Pulse Resp BP Pulse Ox O2 Del Method 08/15/25 22:00 75 17 110/56 L 100 Room Air 08/15/25 21:42 80 23 107/61 99 Room Air 08/15/25 21:30 78 17 100/59 L 99 Room Air 08/15/25 19:00 80 14 102/69 100 Room Air 08/15/25 18:42 78 22 100 08/15/25 18:42 81 08/15/25 18:30 82 12 100/61 100 Room Air 08/15/25 18:27 83 24 100/68 100 Room Air 08/15/25 16:48 36.1 C L 91 H 18 114/74 98 Room Air Laboratory Results Laboratory Results WBC 10.48 K/ul (4.8-10.8) 08/15/25 17:22 RBC 4.48 M/uL (4.20-5.40) 08/15/25 17:22 Hgb 13.8 g/dL (12.0-16.0) 08/15/25 17:22 Hct 39.5 % (37.0-47.0) 08/15/25 17:22 MCV 88.2 fL (80.0-100.0) 08/15/25 17: MCH 30.8 pg (25.0-34.0) 08/15/25 17: MCHC 34.9 g/dL (32.0-36.0) 08/15/25 17:22 RDW Std Deviation 42.4 fL (36.4-46.3) 08/15/25 17: RDW Coeff of Taty 13.1 % (11.5-14.5) 08/15/25 17: Plt Count 384 K/uL (130-400) 08/15/25 17: MPV 9.5 fL (9.4-12.4) 08/15/25 17: Immature Gran % (Auto) 0.4 % 08/15/25 17:22 Neut % (Auto) 65.6 % 08/15/25 17:22 Lymph % (Auto) 24.0 % 08/15/25 17:22 Republic % (Auto) 4.9 % 08/15/25 17:22 Eos % (Auto) 4.4 % 08/15/25 17:22 Baso % (Auto) 0.7 % 08/15/25 17:22 Neut # (Auto) 6.88 K/uL (1.40-6.50) H 08/15/25 17:22 Lymph # (Auto) 2.52 K/uL (1.20-3.40) 08/15/25 17:22 Republic # (Auto) 0.51 K/uL (0.11-0.59) 08/15/25 17:22 Eos # (Auto) 0.46 K/uL (0.00-0.50) 08/15/25 17:22 Baso # (Auto) 0.07 K/uL (0.00-0.20) 08/15/25 17:22 Immature Gran # (Auto) 0.04 K/uL (0.01-0.20) 08/15/25 17:22 Sodium 135 mmol/L (136-145) L 08/15/25 17:22 Potassium 4.2 mmol/L (3.5-5.1) 08/15/25 17:22 Chloride 100 mmol/L (98-107) 08/15/25 17:22 Carbon Dioxide 25 mmol/L (21-32) 08/15/25 17:22 Anion Gap 10 (3-11) 08/15/25 17:22 BUN 10 mg/dl (6-23) 08/15/25 17:22 Creatinine 0.54 mg/dl (0.6-1.2) L 08/15/25 17:22 Est Cr Clr Drug Dosing 132.7 ml/min 08/15/25 17:22 eGFR 127.73 08/15/25 17:22 BUN/Creatinine Ratio 18.5 (10-20) 08/15/25 17:22 Glucose 85 mg/dl (70-99(Fasting)) 08/15/25 17:22 Calcium 9.7 mg/dl (8.6-10.3) 08/15/25 17:22 Total Bilirubin 0.3 mg/dl (0.2-1.0) 08/15/25 17:22 AST 21 U/L (13-39) 08/15/25 17:22 ALT 11 U/L (7-52) 08/15/25 17:22 Alkaline Phosphatase 55 U/L (34-104) 08/15/25 17:22 Total Protein 7.8 gm/dl (6.0-8.3) 08/15/25 17:22 Albumin 4.3 gm/dl (3.4-5.0) 08/15/25 17:22 Globulin 3.5 gm/dl (2.5-4.0) 08/15/25 17:22 Albumin/Globulin Ratio 1.2 (0.9-2) 08/15/25 17:22 Urine Color Yellow 08/15/25 17:22 Urine Appearance Clear (Clear) 08/15/25 17:22 Urine pH 6.5 (4.5-7.5) 08/15/25 17:22 Ur Specific [place] 1.007 (1.000-1.030) 08/15/25 17:22 Urine Protein Negative (Negative) 08/15/25 17:22 Urine Glucose (UA) Negative (Negative) 08/15/25 17:22 Urine Ketones Negative (Negative) 08/15/25 17:22 Urine Blood Negative (Negative) 08/15/25 17:22 Urine Nitrite Negative (Negative) 08/15/25 17:22 Urine Bilirubin Negative (Negative) 08/15/25 17:22 Urine Urobilinogen Negative (Negative) 08/15/25 17:22 Ur Leukocyte Esterase Negative (Negative) 08/15/25 17: Urine Comment 08/15/25 17:22 Impressions Renal Ultrasound 08/15/25 18:15 EXAM: Renal ultrasound/retroperitoneum complete COMPARISON: 07/19/2025 CLINICAL HISTORY: Lower abdominal pain, history of stones. Patient 13 weeks . TECHNIQUE: Ultrasound interrogation of the kidneys was performed with grayscale and color Doppler imaging. FINDINGS: The kidneys are normal in size, configuration and echogenicity. The right kidney measures 11.3 cm in length. Mild pelviectasis. No hydronephrosis, calculus or mass. The left kidney measures 12.3 cm. Mild pelviectasis. No hydronephrosis, calculus or mass. Urinary bladder partly distended and morphologically unremarkable. Bilateral ureteral jets were not identified. IMPRESSION: Mild bilateral pelvic fullness/pelviectasis without hydronephrosis, hydroureter or discrete calculus identified. The ureteral jets were not identified during this examination. ACT 112: Positive. There are findings on this examination that require communication between the performing entity and the patient following Patient Test Result Information Act ([place] ACT 112) guidelines. Electronically signed by Sunshine Menon 08-15-2025 7:51 PM PG Care Time/CCT Total # of Minutes Spent Total Time Spent with Patient: Total time spent is greater than 50% in coordination of care (as documented) at patient's floor/unit and/or counseling patient: Coding Level of Care Code 98898 INT INP/OBS CARE 3/75MIN Diagnoses Abdominal pain R10.9 Nausea & vomiting R11.2 Z34.90 Sinusitis J32.9 Ulcerative colitis in remission K51.90
[2025-08-15] MEDS ORDERED: HYDROmorphone INJ 0.5 MG/0.5 ML SYR IV PRN (23:58)
[2025-08-15] MEDS ORDERED: ALBUTEROL HFA 8 GM INHALER INH PRN (23:58)
[2025-08-15] MEDS ORDERED: diphenhydrAMINE Capsule 25 MG CAP PO PRN (23:58)
[2025-08-16] MEDS: LACTATED RINGER'S 1,000 ML IV SCH (00:32)
[2025-08-16] MEDS: HYDROmorphone INJ 0.5 MG/0.5 ML SYR IV PRN ×2 (01:40→14:51)
--- NOTE | 2025-08-16 01:48 | OB/GYN Consultation ---
Date of Consultation August 16, 2025 Assessment & Plan (1) : (2) Pelvic pain: (3) Kidney stone complicating : Plan Patient is a 29yo female at 12w5d admitted to medicine for pain and nausea control in the setting of suspected kidney stones. VS wnl. Plan for daily dopp tones, reassuring in 140s today. Continue pain regimen per primary team. Continue IV fluids. Continue to strain urine. OB will continue following along for early . Discussed potential establishment with urology if renal issues continue during this . History of Present Illness Reason for Consultation: monitoring Attending Physician: Florina Terry, History of Present Illness Pt is a 29yo female who presented through the ED for ongoing severe pain in lower abdomen and back. Has been to ER 3x in past week for this pain. Prior to this, had recent history of kidney stones and UC flare up that she was hospitalized for. Feels like her pain is well controlled currently with the IV pain medication in the hospital. Pain comes back about 3-4 hours after each medication dose and is associated with nausea. She has been straining her urine here and is seeing sediment pass. No further vaginal bleeding and now she thinks maybe the blood she saw over past week was urinary from stones. She feels flutters. Allergies Allergy/AdvReac Type Severity Reaction Status Date / Time banana Allergy Severe throat Verified 08/14/25 13:40 closes, hives, throwing up shellfish derived Allergy Severe throat Verified 08/14/25 13:40 closes, hives, throwing up oxycodone AdvReac Severe Vomiting Verified 08/14/25 13:40 metoclopramide AdvReac Unknown reacts Verified 08/14/25 13:40 with prozac per pt Home Medications Medication Instructions Recorded Confirmed Type cetirizine 10 mg tablet (Zyrtec) 10 mg PO QPM 12/26/23 08/15/25 History esomeprazole magnesium 20 mg 20 mg PO QPM 02/05/24 08/15/25 History capsule,delayed release epinephrine 0.3 mg/0.3 mL 0.3 mg (0.3 mL) IM Q15M PRN 06/02/24 08/15/25 Rx injection, auto-injector anaphylaxis #2 ea inhalational spacing device #1 ea 06/02/24 08/14/25 Rx fluoxetine 10 mg capsule 10 mg PO QPM 04/22/25 08/15/25 History fluoxetine 20 mg capsule 20 mg PO QPM 04/22/25 08/15/25 History acetaminophen 500 mg tablet 1,000 mg PO Q6H PRN Pain 06/04/25 08/15/25 History ondansetron 4 mg disintegrating 4 mg PO Q6H PRN nausea and 06/04/25 08/15/25 Rx tablet vomiting #14 tabs vit no.95-ferrous 1 tab PO QPM 06/28/25 08/15/25 History fumarate 28 mg-folic acid 800 mcg tablet () albuterol sulfate 90 mcg/actuation 2 puff inhalation Q4 PRN Shortness 07/12/25 08/15/25 History aerosol inhaler Of Breath Or Wheezing mesalamine 1.2 gram tablet,delayed 4.8 g PO QPM 07/12/25 08/15/25 History release amoxicillin 875 mg-potassium 1 tab PO BID #14 tabs 08/09/25 08/15/25 Rx clavulanate 125 mg tablet budesonide-formoterol HFA 80 2 puff inhalation QPM 08/12/25 08/15/25 History mcg-4.5 mcg/actuation aerosol inhaler diphenhydramine HCl 50 mg capsule 25 mg PO HS PRN Nausea 08/12/25 08/15/25 History (Unisom SleepGels) pyridoxine (vitamin B6) 100 mg 100 mg PO DAILY 08/12/25 08/15/25 History tablet (Vitamin B-6) tramadol 25 mg tablet 25 mg PO Q6H PRN pain #15 tabs 08/12/25 08/15/25 Rx hydromorphone 2 mg tablet 2 mg PO Q4H PRN pain (scale score 08/14/25 08/14/25 Rx (Dilaudid) 7-10) #7 tabs Patient History Medical History Nephrolithiasis Nausea and vomiting Ulcerative colitis Diarrhea Pyelonephritis OCD (obsessive compulsive disorder) Varicella vaccination Hidradenitis suppurativa Mild persistent asthma Femoroacetabular impingement Labral tear of left hip joint Labral tear of right hip joint History of anesthesia reaction "when she goes to sleep, she is always panicked" Hidradenitis suppurativa Ovarian cyst hx Surgical History History of hip surgery (02/2025) right labral tear and left S/P endoscopy S/P wisdom tooth extraction S/P dilatation and curettage S/P colonoscopy H/O flexible sigmoidoscopy Family History Grandmother (Maternal) Breast cancer Maternal grandmother, maternal great grandmother Aunt Crohn's disease Ovarian cancer maternal great aunt Grandfather (Paternal) Lung disease Denies family history of Colorectal cancer Social History Smoking Status: Former smoker Tobacco Type: Cigarettes Age Started Using Tobacco: 20; Age Quit Using Tobacco: 27; packs per day: 0.25; Second Hand Exposure: No; Do You Dip or Chew Tobacco: No; Hx Alcohol Use: No Hx Substance Use: No Preferred Language: French Communication Ability: Effective Sr. Manager Marketing Required: No Beliefs That Will Affect Care: None marital status: marital status details: Malick Pappas (25) [phone] Current Living Situation: Spouse Current Living Situation Comment: lives with spouse and daughter current occupational status: unemployed Feels Safe at Home: Yes Safety Concerns: Feels Safe At This Time Assistive Devices: None Review of Systems Review of Systems: All systems reviewed & are unremarkable except as noted in HPI & below Physical Exam Constitutional: WD/WN, vitals as above healthy appearing Respiratory: normal respiratory effort Psychiatric: Orientation: alert and oriented x 3 Genitourinary: OB Exam Abdomen: + heart tones (140s) Results & Data Vital Signs (Past 12 Hours) Vital Signs Temp Pulse Pulse Resp BP BP Pulse Ox 08/16/25 00:07 36.8 C 79 16 111/76 98 08/15/25 22:42 79 16 105/59 L 98 08/15/25 22:30 79 16 105/59 L 97 08/15/25 22:12 83 22 110/56 L 98 08/15/25 22:00 75 17 110/56 L 100 08/15/25 21:42 80 23 107/61 99 08/15/25 21:30 78 17 100/59 L 99 08/15/25 19:00 80 14 102/69 100 08/15/25 18:42 78 22 100 08/15/25 18:42 81 08/15/25 18:30 82 12 100/61 100 08/15/25 18:27 83 24 100/68 100 08/15/25 16:48 36.1 C L 91 H 18 114/74 98 O2 Del Method 08/16/25 00:07 Room Air 08/15/25 22:42 Room Air 08/15/25 22:30 Room Air 08/15/25 22:12 Room Air 08/15/25 22:00 Room Air 08/15/25 21:42 Room Air 08/15/25 21:30 Room Air 08/15/25 19:00 Room Air 08/15/25 18:42 08/15/25 18:42 08/15/25 18:30 Room Air 08/15/25 18:27 Room Air 08/15/25 16:48 Room Air Coding Level of Care Code 77454 IN/OBS CONSULT LVL 2,35M Diagnoses 12 weeks gestation of Z3A.12 Weeks of gestation: 12 weeks Pelvic pain R10.20 Calculus of kidney affecting in first trimester O99.891; N20.0 Trimester: first trimester (1) Weeks of gestation: 12 weeks Qualified Code(s): Z3A.12 - 12 weeks gestation of (3) Kidney stone complicating Trimester: first trimester Qualified Code(s): O99.891 - Other specified diseases and conditions complicating ; N20.0 - Calculus of kidney
[2025-08-16] MEDS: ONDANSETRON INJ 2 MG/ML 2 ML VIAL IV PRN (04:43)
[2025-08-16 06:19] LABS: Hematocrit (blood only) 29.1 % (37.0-47.0); Hemoglobin 10.1 g/dL (12.0-16.0); Mean Corpuscular Hemoglobin 30.8 pg (25.0-34.0); Mean Corpuscular Volume 88.7 fL (80.0-100.0); Platelet Count 276 K/uL (130-400); RDW Standard Deviation 43.2 fL (36.4-46.3); Red Blood Count 3.28 M/uL (4.20-5.40); White Blood Count 8.33 K/ul (4.8-10.8)
[2025-08-16 06:38] LABS: Anion Gap 7.0 (3-11); Blood Urea Nitrogen 6.0 mg/dl (6-23); Calcium 8.6 mg/dl (8.6-10.3); Carbon Dioxide 21.0 mmol/L (21-32); Chloride 108.0 mmol/L (98-107); Creatinine Clr Calc Pharmacy 152.5 ml/min; Glucose 83.0 mg/dl (70-99(Fasting)); Potassium 3.9 mmol/L (3.5-5.1); Sodium 136.0 mmol/L (136-145)
[2025-08-16] MEDS: PRENATAL VITAMIN 1 TAB PO SCH (07:59)
[2025-08-16] MEDS: PYRIDOXINE HCL 50 MG TAB PO SCH (07:59)
[2025-08-16] MEDS ORDERED: AMOXICILLIN/CLAVULANATE 875 MG TAB PO SCH ×2 (09:00→17:00)
[2025-08-16] MEDS: diphenhydrAMINE 50 MG/ML VIAL IV PRN ×2 (09:26→15:27)
[2025-08-16] MEDS: AMOXICILLIN/CLAVULANATE 875 MG TAB PO SCH (11:05)
--- NOTE | 2025-08-16 12:06 | Hospitalist Progress Note ---
Date of Service August 16, 2025 Assessment & Plan (1) Abdominal pain: (2) Nausea & vomiting: (3) : (4) Sinusitis: (5) Ulcerative colitis in remission: Plan 29yo female [id number] at 12.5 weeks gestation presenting with ongoing lower abdominal and flank pain as well as nausea and vomiting. heart tones auscultated in the ER and found to be normal. #Nausea/Vomiting/Abdominal Pain - -nausea improved -vomiting resolved -abd pain is better, and her abd exam is benign today - but still requesting pain meds somewhat regularly -etiology for her pain -- renal colic from a stone? UC? gastroenteritis? other? -u/a wnl this admission -renal u/s with mild bilateral pelvic fullness/pelviectasis but no ricardo hydroureter or hydronephrosis and no obvious stones -cont to strain urine -if she continues to have significant pain consider repeat imaging -consider formal urology consult IF a kidney stone is suspected -appreciate OB consult & assistance - heart tones wnl -no concerns from OB standpoint # - -12.5 weeks gestation -Continue vitamins -Benadryl prn nausea; Vitamin B6 daily for prophylaxis - heart tones q shift #Asthma - -chronic, controlled; no flare -Fluticasone/Vilanterol daily -Albuterol PRN -Cetirizine 10mg daily #Anxiety/Panic disorder - -Continue Prozac 30mg po q PM #Sinusitis - -seen on head CT 08/09/25 -left maxillary sinusitis -day 7 of 7 of augmentin today; finish 2 doses today then stop abx #Ulcerative Colitis - -cont Mesalamine 1.2gm daily -check sed rate, crp in am -- although no rectal bleeding or other symptoms to suggest UC flare -recent CT a/p in May without colonicl abnormalities to suggest active UC Admission and Anticipated Discharge Date Admission Date: August 15, 2025 Subjective patient lying in bed during the visit reports no blood in urine no vaginal bleeding no rectal bleeding pain has been in the lower quadrants of the abdomen occasional back pain no vomiting but some nausea despite nausea has been able to hydrate and eat some solids denies dysuria Review of Systems Review of Systems: gen - no fevers or chills cv - no chest pain pulm - no dyspnea GI - no upper abd pain; pain does NOT feel like UC flare Physical Exam Physical Exam: gen - NAD, looks well mouth - MMM neck - no JVD heart - RRR, s1 s2, no murmur lungs - CTA b/l back - no flank tenderness to palpation b/l abd - soft, ND, BS+, no HSM; minimal tenderness to palpation LLQ ext - no edema, pulses 2+ b/l Results & Data Results & Data Vital Signs (Past 12 Hours) Vital Signs Temp Pulse Resp BP Pulse Ox O2 Del Method 08/16/25 07:28 36.5 C 69 16 110/58 L 99 Room Air 08/16/25 00:07 36.8 C 79 16 111/76 98 Room Air Laboratory Results Laboratory Results - last 48 hr 08/15/25 08/16/25 08/16/25 17:22 05:39 12:39 WBC 10.48 8.33 8.78 RBC 4.48 3.28 L 3.65 L Hgb 13.8 10.1 L D 11.2 L Hct 39.5 29.1 L 32.9 L MCV 88.2 88.7 90.1 MCH 30.8 30.8 30.7 MCHC 34.9 34.7 34.0 RDW Std Deviation 42.4 43.2 44.0 RDW Coeff of Taty 13.1 13.2 13.2 Plt Count 384 276 286 MPV 9.5 9.6 9.3 L Immature Gran % (Auto) 0.4 Neut % (Auto) 65.6 Lymph % (Auto) 24.0 [place] % (Auto) 4.9 Eos % (Auto) 4.4 Baso % (Auto) 0.7 Neut # (Auto) 6.88 H Lymph # (Auto) 2.52 [place] # (Auto) 0.51 Eos # (Auto) 0.46 Baso # (Auto) 0.07 Immature Gran # (Auto) 0.04 Sodium 135 L 136 Potassium 4.2 3.9 Chloride 100 108 H Carbon Dioxide 25 21 Anion Gap 10 7 BUN 10 6 Creatinine 0.54 L 0.47 L Est Cr Clr Drug Dosing 132.7 152.5 eGFR 127.73 132.08 BUN/Creatinine Ratio 18.5 12.8 Glucose 85 83 Calcium 9.7 8.6 Iron 95 TIBC 326 Transferrin 233 Transferrin % Sat 29 Ferritin 63.2 Total Bilirubin 0.3 AST 21 ALT 11 Alkaline Phosphatase 55 Total Protein 7.8 Albumin 4.3 Globulin 3.5 Albumin/Globulin Ratio 1.2 Vitamin B12 361 Folate Urine Color Yellow Urine Appearance Clear Urine pH 6.5 Ur Specific [place] 1.007 Urine Protein Negative Urine Glucose (UA) Negative Urine Ketones Negative Urine Blood Negative Urine Nitrite Negative Urine Bilirubin Negative Urine Urobilinogen Negative Ur Leukocyte Esterase Negative Urine Comment Diagnostic Findings Renal Ultrasound 08/15/25 18:15 EXAM: Renal ultrasound/retroperitoneum complete COMPARISON: 07/19/2025 CLINICAL HISTORY: Lower abdominal pain, history of stones. Patient 13 weeks . TECHNIQUE: Ultrasound interrogation of the kidneys was performed with grayscale and color Doppler imaging. FINDINGS: The kidneys are normal in size, configuration and echogenicity. The right kidney measures 11.3 cm in length. Mild pelviectasis. No hydronephrosis, calculus or mass. The left kidney measures 12.3 cm. Mild pelviectasis. No hydronephrosis, calculus or mass. Urinary bladder partly distended and morphologically unremarkable. Bilateral ureteral jets were not identified. IMPRESSION: Mild bilateral pelvic fullness/pelviectasis without hydronephrosis, hydroureter or discrete calculus identified. The ureteral jets were not identified during this examination. ACT 112: Positive. There are findings on this examination that require communication between the performing entity and the patient following Patient Test Result Information Act ([place] ACT 112) guidelines. Electronically signed by Sunshine Menon 08-15-2025 7:[address] a/p (06/04/25) - -no acute findings -small stone left renal pelvis PG Care Time/CCT Total # of Minutes Spent Total Time Spent with Patient: Total time spent is greater than 50% in coordination of care (as documented) at patient's floor/unit and/or counseling patient: Coding Level of Care Code 84086 SUB INP/OBS CARE 2/35MIN Diagnoses Abdominal pain R10.9 Nausea & vomiting R11.2 12 weeks gestation of Z3A.12 Weeks of gestation: 12 weeks Sinusitis J32.9 Ulcerative colitis in remission K51.90 (3) Weeks of gestation: 12 weeks Qualified Code(s): Z3A.12 - 12 weeks gestation of
[2025-08-16 12:57] LABS: Hematocrit (blood only) 32.9 % (37.0-47.0); Hemoglobin 11.2 g/dL (12.0-16.0); Mean Corpuscular Hemoglobin 30.7 pg (25.0-34.0); Mean Corpuscular Volume 90.1 fL (80.0-100.0); Platelet Count 286 K/uL (130-400); RDW Standard Deviation 44.0 fL (36.4-46.3); Red Blood Count 3.65 M/uL (4.20-5.40); White Blood Count 8.78 K/ul (4.8-10.8)
[2025-08-16 13:51] LABS: Iron 95.0 mcg/dl (35-150); Total Iron Binding Cap Calc 326.0 mcg/dl (250-450); Transferrin (FE) Percent Satur 29.0 % (15-50)
[2025-08-16 13:56] LABS: Ferritin 63.2 ng/ml (8-388); Transferrin 233.0 mg/dl (200-360)
[2025-08-16] MEDS: CETIRIZINE HCL 10 MG TABLET PO SCH (21:13)
[2025-08-16] MEDS: FLUTICASONE/VILANTEROL 100/25MCG 14 PUFFS/INHALER INH SCH (21:15)
[2025-08-17 06:42] LABS: Hematocrit (blood only) 29.5 % (37.0-47.0); Hemoglobin 10.3 g/dL (12.0-16.0); Mean Corpuscular Hemoglobin 31.1 pg (25.0-34.0); Mean Corpuscular Volume 89.1 fL (80.0-100.0); Platelet Count 275 K/uL (130-400); RDW Standard Deviation 43.5 fL (36.4-46.3); Red Blood Count 3.31 M/uL (4.20-5.40); White Blood Count 7.76 K/ul (4.8-10.8)
[2025-08-17 07:15] LABS: Anion Gap 6.0 (3-11); Blood Urea Nitrogen 4.0 mg/dl (6-23); Calcium 8.6 mg/dl (8.6-10.3); Carbon Dioxide 25.0 mmol/L (21-32); Chloride 107.0 mmol/L (98-107); Creatinine Clr Calc Pharmacy 149.3 ml/min; Glucose 80.0 mg/dl (70-99(Fasting)); Potassium 3.9 mmol/L (3.5-5.1); Sodium 138.0 mmol/L (136-145)
--- NOTE | 2025-08-17 14:15 | Urology Consultation ---
Date of Consultation August 17, 2025 Assessment & Plan (1) Abdominal pain: (2) Nausea & vomitin-year-old female with history of nephrolithiasis and current at 12.5 weeks gestation admitted for nausea, vomiting and abdominal pain. Urology is consulted for possible kidney stone She is afebrile and hemodynamically stable Labs reviewedno leukocytosis, creatinine 0.48 Urinalysis was negative Renal ultrasound on 08/15 showed mild bilateral pelviectasis without hydronephrosis Reviewed and discussed findings which could be consistent with status Her pain does not appear consistent with an obstructing stone/ etiology, possibly related to or GI No acute intervention warranted at this time Based on her previous imaging, if a stone is present, then she has a good probability of passing stone spontaneously We would avoid any surgical intervention unless febrile UTI/sepsis or renal failure Recommend hydration and supportive care, normalize bowels Patient can follow-up with our service as outpatient will sign off, please contact our service with any additional questions or concerns History of Present Illness Attending Physician: Drew Almanza MD History of Present Illness This is a 29-year-old female with past medical history of nephrolithiasis, ulcerative colitis and currently at approximately 12.5 weeks gestation who presented to the ED on 08/15/2025 for evaluation of ongoing lower abdominal and flank pain, nausea and vomiting. Lab work showed WBC 10.48, hemoglobin 13.8, sodium 135, creatinine 0.54. Urinalysis was negative. Renal ultrasound showed mild bilateral pelviectasis without hydronephrosis, hydroureter or stone visualized. She was admitted for nausea, vomiting, and abdominal pain of unknown etiology. Urology is consulted for kidney stone versus other. Labs today reviewedcreatinine 0.48, WBC 7.76, hemoglobin 10.3 Urine culture 08/14/2025 with 3 types of organisms present, all low counts probable skin gene Urinalysis 08/15 was negative She was seen by urology on a previous admission in early June. RONALD 06/30 showed mild left hydronephrosis and suggestion of small distal left ureteral calculus. Renal ultrasound 07/12/2025 showed no hydronephrosis. Patient seen and examined at bedside. She is awake and standing in room. She reports ongoing lower abdominal cramping, bilateral. Occasional low back pain. Continues to have some nausea. She is voiding spontaneously. No dysuria. She reports passing some flecks in her urine. She reports she passed a stone at the end of June. Reports last BM on 08/13. No fever or chills. Allergies Allergy/AdvReac Type Severity Reaction Status Date / Time banana Allergy Severe throat Verified 08/14/25 13:40 closes, hives, throwing up shellfish derived Allergy Severe throat Verified 08/14/25 13:40 closes, hives, throwing up oxycodone AdvReac Severe Vomiting Verified 08/14/25 13:40 metoclopramide AdvReac Unknown reacts Verified 08/14/25 13:40 with prozac per pt Home Medications Medication Instructions Recorded Confirmed Type cetirizine 10 mg tablet (Zyrtec) 10 mg PO QPM 12/26/23 08/15/25 History esomeprazole magnesium 20 mg 20 mg PO QPM 02/05/24 08/15/25 History capsule,delayed release epinephrine 0.3 mg/0.3 mL 0.3 mg (0.3 mL) IM Q15M PRN 06/02/24 08/15/25 Rx injection, auto-injector anaphylaxis #2 ea inhalational spacing device #1 ea 06/02/24 08/14/25 Rx fluoxetine 10 mg capsule 10 mg PO QPM 04/22/25 08/15/25 History fluoxetine 20 mg capsule 20 mg PO QPM 04/22/25 08/15/25 History acetaminophen 500 mg tablet 1,000 mg PO Q6H PRN Pain 06/04/25 08/15/25 History ondansetron 4 mg disintegrating 4 mg PO Q6H PRN nausea and 06/04/25 08/15/25 Rx tablet vomiting #14 tabs vit no.95-ferrous 1 tab PO QPM 06/28/25 08/15/25 History fumarate 28 mg-folic acid 800 mcg tablet () albuterol sulfate 90 mcg/actuation 2 puff inhalation Q4 PRN Shortness 07/12/25 08/15/25 History aerosol inhaler Of Breath Or Wheezing mesalamine 1.2 gram tablet,delayed 4.8 g PO QPM 07/12/25 08/15/25 History release amoxicillin 875 mg-potassium 1 tab PO BID #14 tabs 08/09/25 08/15/25 Rx clavulanate 125 mg tablet budesonide-formoterol HFA 80 2 puff inhalation QPM 08/12/25 08/15/25 History mcg-4.5 mcg/actuation aerosol inhaler diphenhydramine HCl 50 mg capsule 25 mg PO HS PRN Nausea 08/12/25 08/15/25 History ([employer]) pyridoxine (vitamin B6) 100 mg 100 mg PO DAILY 08/12/25 08/15/25 History tablet (Vitamin B-6) tramadol 25 mg tablet 25 mg PO Q6H PRN pain #15 tabs 08/12/25 08/15/25 Rx hydromorphone 2 mg tablet 2 mg PO Q4H PRN pain (scale score 08/14/25 08/14/25 Rx (Dilaudid) 7-10) #7 tabs Patient History Medical History Nephrolithiasis Nausea and vomiting Ulcerative colitis Diarrhea Pyelonephritis OCD (obsessive compulsive disorder) Varicella vaccination Hidradenitis suppurativa Mild persistent asthma Femoroacetabular impingement Labral tear of left hip joint Labral tear of right hip joint History of anesthesia reaction "when she goes to sleep, she is always panicked" Hidradenitis suppurativa Ovarian cyst hx Surgical History History of hip surgery (02/2025) right labral tear and left S/P endoscopy S/P wisdom tooth extraction S/P dilatation and curettage S/P colonoscopy H/O flexible sigmoidoscopy Family History Grandmother (Maternal) Breast cancer Maternal grandmother, maternal great grandmother Aunt Crohn's disease Ovarian cancer maternal great aunt Grandfather (Paternal) Lung disease Denies family history of Colorectal cancer Social History Smoking Status: Former smoker Tobacco Type: Cigarettes Age Started Using Tobacco: 20; Age Quit Using Tobacco: 27; packs per day: 0.25; Second Hand Exposure: No; Do You Dip or Chew Tobacco: No; Hx Alcohol Use: No Hx Substance Use: No Preferred Language: Citizen Of [place] Communication Ability: Effective Transfer Engineer Required: No Beliefs That Will Affect Care: None marital status: marital status details: Malick Pappas [phone] Current Living Situation: Spouse Current Living Situation Comment: lives with spouse and daughter current occupational status: unemployed Feels Safe at Home: Yes Safety Concerns: Feels Safe At This Time Assistive Devices: None Review of Systems Constitutional: as per Subjective / HPI Genitourinary: as per Subjective / HPI Physical Exam Constitutional: well developed and well nourished; no acute distress Respiratory: normal respiratory effort; no respiratory distress and no labored breathing Gastrointestinal (Abdomen): Inspection/Auscultation: abdomen normal to inspection Musculoskeletal: Head/Neck/Chest: normocephalic Neurologic: moves all extremities and awake Psychiatric: Orientation: alert and oriented x 3 Results & Data Vital Signs (Past 12 Hours) Vital Signs Temp Pulse Resp BP Pulse Ox O2 Del Method 08/17/25 07:53 37 C 78 14 105/66 99 Room Air PG Care Time/CCT Total # of Minutes Spent Total Time Spent with Patient: Total time spent is greater than 50% in coordination of care (as documented) at patient's floor/unit and/or counseling patient: Coding Level of Care Code 38813 IN/OBS CONSULT LVL 4,60M Diagnoses Abdominal pain R10.9 Nausea & vomiting R11.2
[2025-08-17] MEDS: HYDROCODONE/ACETAMINOPHEN 7.5/325MG TAB PO PRN (14:28)
[2025-08-17] MEDS: ACETAMINOPHEN 500 MG TAB PO PRN (18:05)
--- NOTE | 2025-08-17 18:30 | Hospitalist Progress Note ---
Date of Service August 17, 2025 Assessment & Plan (1) Abdominal pain: (2) Nausea & vomiting: (3) : (4) Sinusitis: (5) Ulcerative colitis in remission: Plan 29yo female [id number] - nearly 13 weeks - presenting with ongoing lower abdominal and flank pain as well as nausea and vomiting. heart tones auscultated in the ER and found to be normal. #Nausea/Vomiting/Abdominal Pain - -overall symptoms have improved since admission, but still having nausea and requiring anti-nausea meds for such -also had 1 episode of emesis today despite taking zofran/benadryl IV frequently -abd pain continues - maybe slightly better from yesterday - but still quite prominent and needing ongoing pain meds for such -etiology for her pain -- renal colic from a stone? UC? other? -appreciate urology consultation today -no plans for intervention (ie cystoscopy) or repeat imaging -supportive care, etc. -u/a wnl this admission -renal u/s with mild bilateral pelvic fullness/pelviectasis but no ricardo hydroureter or hydronephrosis and no obvious stones (pelviectasis likely 2nd to per urology) -if pt's pain and nausea persist will ask GI to see in consult given her known UC -I did check ESR and CRP today and both returned normal making active UC unlikely, however -will resume IV fluids if indeed she has a small stone or stone fragment that she is still trying to pass -cont pain meds prn but need to try and wean such given her status -I spoke with pharmacy and on-call OB - since she has oxycodone & hydrocodone allergy/intolerance - would use tramadol low-dose prn # - -nearly 13 weeks gestation -continue vitamins -Benadryl prn nausea; Vitamin B6 daily for prophylaxis - heart tones q shift -appreciate prior OB consultation; no concerns at this time from OB #Asthma - -chronic, controlled; no flare -Fluticasone/Vilanterol daily -Albuterol PRN -Cetirizine 10mg daily #Anxiety/Panic disorder - -Continue Prozac 30mg po q PM #Sinusitis - -seen on head CT 08/09/25 -left maxillary sinusitis -s/p 7 day course of augmentin - completed -no further ENT symptoms #Ulcerative Colitis - -cont Mesalamine 1.2gm daily -checked sed rate, crp - largely normal -recent CT a/p in May without colonic abnormalities to suggest active UC -see discussion above under N/V/abd pain #DVT proph - -patient ambulating without difficulty Admission and Anticipated Discharge Date Admission Date: August 15, 2025 Uvaldo Cerrato continues to have lower abdominal pain she reports it continues to move more inferiorly and she is hopeful that if she has a kidney stone it is passing had 1 small stool today no blood per rectum passing flatus continues with nausea had 1 episode of vomiting today is eating and hydrating with water despite the nausea and 1 episode of emesis no hematuria no dysuria passing what looks like sand at times in her urine but otherwise the urine is clear Review of Systems Review of Systems: gen - no fevers or chills GI - no blood in stool pulm - no dyspnea Physical Exam Physical Exam: gen - NAD, lying in bed, nontoxic mouth - MMM neck - no JVD heart - RRR, s1 s2, no murmur lungs - CTA b/l abd - soft, ND, BS+, no HSM; mild tenderness to palpation RLQ, LLQ, and suprapubic region ext - no edema, pulses 2+ b/l psych - a/o x 3 Results & Data Results & Data Vital Signs (Past 12 Hours) Vital Signs Temp Pulse Resp BP BP Pulse Ox O2 Del Method 08/17/25 16:07 36.2 C L 81 14 107/68 100 Room Air 08/17/25 07:53 37 C 78 14 105/66 99 Room Air Laboratory Results Laboratory Results - last 48 hr 08/16/25 08/17/25 12:39 05:43 WBC 8.78 7.76 RBC 3.65 L 3.31 L Hgb 11.2 L 10.3 L Hct 32.9 L 29.5 L MCV 90.1 89.1 MCH 30.7 31.1 MCHC 34.0 34.9 RDW Std Deviation 44.0 43.5 RDW Coeff of Taty 13.2 13.2 Plt Count 286 275 MPV 9.3 L 9.6 ESR 6 Sodium 138 Potassium 3.9 Chloride 107 Carbon Dioxide 25 Anion Gap 6 BUN 4 L Creatinine 0.48 L Est Cr Clr Drug Dosing 149.3 eGFR 131.41 BUN/Creatinine Ratio 8.3 L Glucose 80 Calcium 8.6 Iron 95 TIBC 326 Transferrin 233 Transferrin % Sat 29 Ferritin 63.2 C-Reactive Protein 0.76 H Vitamin B12 361 Folate 19.65 PG Care Time/CCT Total # of Minutes Spent Total Time Spent with Patient: Total time spent is greater than 50% in coordination of care (as documented) at patient's floor/unit and/or counseling patient: Coding Level of Care Code 87452 SUB INP/OBS CARE 3/50MIN Diagnoses Abdominal pain R10.9 Nausea & vomiting R11.2 12 weeks gestation of Z3A.12 Weeks of gestation: 12 weeks Sinusitis J32.9 Ulcerative colitis in remission K51.90 (3) Weeks of gestation: 12 weeks Qualified Code(s): Z3A.12 - 12 weeks gestation of
[2025-08-17] MEDS: SODIUM CHLORIDE 0.9% 1,000 ML IV SCH (18:45)
[2025-08-17] MEDS: MESALAMINE 1.2 GM TABDR PO SCH (20:27)
[2025-08-18 09:38] LABS: Hematocrit (blood only) 35.0 % (37.0-47.0); Hemoglobin 11.6 g/dL (12.0-16.0); Immature Granulocytes # (auto) 0.03 K/uL (0.01-0.20); Immature Granulocytes % (auto) 0.3 %; Mean Corpuscular Hemoglobin 30.1 pg (25.0-34.0); Mean Corpuscular Volume 90.7 fL (80.0-100.0); Platelet Count 313 K/uL (130-400); RDW Standard Deviation 44.2 fL (36.4-46.3); Red Blood Count 3.86 M/uL (4.20-5.40); White Blood Count 10.62 K/ul (4.8-10.8)
[2025-08-18 09:54] LABS: Alanine Aminotransferase 10.0 U/L (7-52); Albumin Globulin Ratio 1.5 (0.9-2); Albumin Level 3.8 gm/dl (3.4-5.0); Alkaline Phosphatase 45.0 U/L (34-104); Anion Gap 6.0 (3-11); Bilirubin,Total 0.2 mg/dl (0.2-1.0); Blood Urea Nitrogen 4.0 mg/dl (6-23); Calcium 8.7 mg/dl (8.6-10.3); Carbon Dioxide 23.0 mmol/L (21-32); Chloride 108.0 mmol/L (98-107); Creatinine Clr Calc Pharmacy 159.3 ml/min; Globulin 2.5 gm/dl (2.5-4.0); Glucose 125.0 mg/dl (70-99(Fasting)); Lipase 13.0 U/L (11-82); Potassium 3.8 mmol/L (3.5-5.1); Sodium 137.0 mmol/L (136-145); Total Protein 6.3 gm/dl (6.0-8.3)
--- NOTE | 2025-08-18 12:52 | Gastrointestinal Consultation ---
Date of Consultation August 18, 2025 Assessment & Plan (1) Ulcerative colitis: Plan 29yowf with h/o UC proctitis, Eosinophilic esophagitis, recent hospitalization for complex UTI and pyelonephritis and 12 weeks is seen today in hospital for suspected mild UC flair with diarrhea with abdominal and rectal pain. Associated with pain induced N/V. LLQ Abdominal pain with intermittent diarrhea and vomiting with h/o UC and 12 weeks . - History consistent with UC flare up. - Recommend starting Mesalamine 1g suppositories HS x 6 weeks. - Then she can taper off every other day. - Otherwise continue with symptomatic care for nausea as needed. It's our hope that with better control of rectal symptoms this will improve. - We can make arrangements to follow up with her in outpatient. - Thank you for allowing us to participate in the care of this patient. Please call with any acute changes, questions or concerns. Please see addendum below with additional recommendation from my supervising physician. Supervising Physician Co-Signing Physician Notes Patient with ulcerative proctitis diagnosed endoscopically and not on biopsy. She is on oral mesalamine. Third of patients will flare during . I suspect that is playing a role. Oral mesalamine may not work well for proctitis as this is evacuated as soon as it reaches the rectum and an inflamed rectal situation. Suppositories better in that situation. She has been using nose as needed for flares. I doubt she is getting remission in the rectum. I have suggested she should take them daily or nightly for at least 6 to 8 weeks. She is agreeable. Follow-up with [facility] in 4 weeks or so. She can continue to take her oral mesalamine. History of Present Illness Attending Physician: Drew Almanza MD History of Present Illness 29yowf with h/o UC proctitis, Eosinophilic esophagitis, recent hospitalization for complex UTI and pyelonephritis and 12 weeks is seen today in hospital for suspected mild UC flair with diarrhea with abdominal and rectal pain. She was seen last month for similar symptoms with hematochezia. She was advised to add on Mesalamine 1G [place] suppositories. However she's been only taking them as needed for bad days. (1) Diarrhea with hematochezia, Associated with pain induced nausea and vomiting. - LLQ in location. She's had bouts of 4x/day passing stool. One episode lasted an hour with tenesmus. No blood with this, however she did note vaginal vs. urological source of bleeding. OB and Urology consulted. UA and US re-assuring. - She notes that if the pain gets bad she'll get nauseated wth vomiting. This happened 1x yesterday. No blood or coffee grounds. - She's been started on Compazine which has helped with the nausea. - Historically she goes through a pattern of 4-5 days of constipation, normal stool then diarrhea for several days. This has been ongoing for 3 years. What difference is that she has more discomfort recently. - The most stools she'll have in a day is 3-5x/day. - In regards to her UC, she was diagnosed around 2020. She has tried steroid enemas, Budesonide (works the best) in the past and currently on Mesalamine 4.8g/day. - Colonoscopy reveal ulcerative proctitis with moderate inflammation on biopsies. Pertinent Diagnostics Hgb 10.3, Hct 29.5, Plt 275, WBC 7.76 CRP 0.76 ESR 6 LFTs unremarkable. Folate 19.65 Renal US 08/15/25 IMPRESSION: Mild bilateral pelvic fullness/pelviectasis without hydronephrosis, hydroureter or discrete calculus identified. The ureteral jets were not identified during this examination. EGD 06/2024 Findings: - Mucosal changes including longitudinal furrows were found in the entire esophagus. Esophageal findings were graded using the Eosinophilic Esophagitis Endoscopic Reference Score (EoE-EREFS) as: Furrows Grade 1 Mild (vertical lines without visible depth). Biopsies were obtained from the esophagus with cold forceps for histology of suspected eosinophilic esophagitis. - The entire examined stomach was normal. - The examined duodenum was normal. Impression: - Esophageal mucosal changes consistent with eosinophilic esophagitis. - Biopsies were taken with a cold forceps for evaluation of eosinophilic esophagitis. - Normal stomach. - Normal examined duodenum Colonoscopy 06/2024 Findings: - The perianal examination was normal. - Inflammation characterized by erythema was found in a continuous and circumferential pattern from the anus to the rectum. The inflammation was mild in severity. Biopsies were taken with a cold forceps for histology. - Internal hemorrhoids were found during retroflexion. The hemorrhoids were small. Impression: - Proctitis ulcerative colitis. Inflammation was found from the anus to the rectum. This was mild in severity. Biopsied. - Internal hemorrhoids. Path - A. Esophagus, distal, biopsy: - Squamous mucosa only. No diagnostic abnormality. B. Esophagus, proximal, biopsy: - No diagnostic abnormality C. Rectum, biopsy: - Chronic proctitis with moderate activity consistent with history of ulcerative proctitis. - Negative for dysplasia Allergies Allergy/AdvReac Type Severity Reaction Status Date / Time banana Allergy Severe throat Verified 08/14/25 13:40 closes, hives, throwing up shellfish derived Allergy Severe throat Verified 08/14/25 13:40 closes, hives, throwing up oxycodone AdvReac Severe Vomiting Verified 08/14/25 13:40 metoclopramide AdvReac Unknown reacts Verified 08/14/25 13:40 with prozac per pt acetaminophen [From Vicodin] AdvReac Vomiting Verified 08/17/25 16:39 hydrocodone [From Vicodin] AdvReac Vomiting Verified 08/17/25 16:39 Home Medications Medication Instructions Recorded Confirmed Type cetirizine 10 mg tablet (Zyrtec) 10 mg PO QPM 12/26/23 08/15/25 History esomeprazole magnesium 20 mg 20 mg PO QPM 02/05/24 08/15/25 History capsule,delayed release epinephrine 0.3 mg/0.3 mL 0.3 mg (0.3 mL) IM Q15M PRN 06/02/24 08/15/25 Rx injection, auto-injector anaphylaxis #2 ea inhalational spacing device #1 ea 06/02/24 08/14/25 Rx fluoxetine 10 mg capsule 10 mg PO QPM 04/22/25 08/15/25 History fluoxetine 20 mg capsule 20 mg PO QPM 04/22/25 08/15/25 History acetaminophen 500 mg tablet 1,000 mg PO Q6H PRN Pain 06/04/25 08/15/25 History ondansetron 4 mg disintegrating 4 mg PO Q6H PRN nausea and 06/04/25 08/15/25 Rx tablet vomiting #14 tabs vit no.95-ferrous 1 tab PO QPM 06/28/25 08/15/25 History fumarate 28 mg-folic acid 800 mcg tablet () albuterol sulfate 90 mcg/actuation 2 puff inhalation Q4 PRN Shortness 07/12/25 08/15/25 History aerosol inhaler Of Breath Or Wheezing mesalamine 1.2 gram tablet,delayed 4.8 g PO QPM 07/12/25 08/15/25 History release amoxicillin 875 mg-potassium 1 tab PO BID #14 tabs 08/09/25 08/15/25 Rx clavulanate 125 mg tablet budesonide-formoterol HFA 80 2 puff inhalation QPM 08/12/25 08/15/25 History mcg-4.5 mcg/actuation aerosol inhaler diphenhydramine HCl 50 mg capsule 25 mg PO HS PRN Nausea 08/12/25 08/15/25 History ([employer]) pyridoxine (vitamin B6) 100 mg 100 mg PO DAILY 08/12/25 08/15/25 History tablet (Vitamin B-6) tramadol 25 mg tablet 25 mg PO Q6H PRN pain #15 tabs 08/12/25 08/15/25 Rx hydromorphone 2 mg tablet 2 mg PO Q4H PRN pain (scale score 08/14/25 08/14/25 Rx (Dilaudid) 7-10) #7 tabs Patient History Medical History Nephrolithiasis Nausea and vomiting Ulcerative colitis Diarrhea Pyelonephritis OCD (obsessive compulsive disorder) Varicella vaccination Hidradenitis suppurativa Mild persistent asthma Femoroacetabular impingement Labral tear of left hip joint Labral tear of right hip joint History of anesthesia reaction "when she goes to sleep, she is always panicked" Hidradenitis suppurativa Ovarian cyst hx Surgical History History of hip surgery (02/2025) right labral tear and left S/P endoscopy S/P wisdom tooth extraction S/P dilatation and curettage S/P colonoscopy H/O flexible sigmoidoscopy Family History Grandmother (Maternal) Breast cancer Maternal grandmother, maternal great grandmother Aunt Crohn's disease Ovarian cancer maternal great aunt Grandfather (Paternal) Lung disease Denies family history of Colorectal cancer Social History Smoking Status: Former smoker Tobacco Type: Cigarettes Age Started Using Tobacco: 20; Age Quit Using Tobacco: 27; packs per day: 0.25; Second Hand Exposure: No; Do You Dip or Chew Tobacco: No; Hx Alcohol Use: No Hx Substance Use: No Preferred Language: Albanian Communication Ability: Effective Sat Instructor Required: No Beliefs That Will Affect Care: None marital status: marital status details: Malick Pappas [phone] Current Living Situation: Spouse Current Living Situation Comment: lives with spouse and daughter current occupational status: unemployed Feels Safe at Home: Yes Safety Concerns: Feels Safe At This Time Assistive Devices: None Review of Systems Review of Systems: See HPI Physical Exam Physical Exam: Constitutional: NAD. Alert. Answering questions appropriately. Respiratory: Breathing is even, non-labored. Lungs yu are clear to auscultation anteriorly. Cardiovascular: Regular Rate and Rhythm, no murmurs, rubs or gallops appreciated. Gastrointestinal (Abdomen): Normoactive bowel sounds x4, soft, mild tenderness in LLQ. No guarding or rebound. Musculoskeletal: Lying in bed comfortably. No peripheral edema. Results & Data Vital Signs (Past 12 Hours) Vital Signs Temp Pulse Resp BP Pulse Ox O2 Del Method 08/18/25 08:06 98.1 F 77 14 102/63 98 Room Air PG Care Time/CCT Total # of Minutes Spent Total Time Spent with Patient: Total time spent is greater than 50% in coordination of care (as documented) at patient's floor/unit and/or counseling patient: Coding Level of Care Code 97497 IN/OBS CONSULT LVL 3,45M Diagnoses Ulcerative colitis K51.90
[2025-08-18] MEDS: CALCIUM CARBONATE 500 MG CHEWABLE TAB PO PRN (14:49)
--- NOTE | 2025-08-18 18:43 | Hospitalist Progress Note ---
Date of Service August 18, 2025 Assessment & Plan (1) Abdominal pain: (2) Nausea & vomiting: (3) : (4) Sinusitis: (5) Ulcerative colitis in remission: Plan 29yo female [id number] - nearly 13 weeks - presenting with ongoing lower abdominal and flank pain as well as nausea and vomiting. heart tones auscultated in the ER and found to be normal. #Nausea/Vomiting/Abdominal Pain - -overall improved -etiology - passing a kidney stone or stone fragment? Ulcerative proctitis? combination of factors? -appreciate urology consultation - no specific Rx at this time for possible stone -appreciate GI consultation - they advise Rx for possible ulcerative proctitis -recommendation - start mesalamine per rectum 1gm HS -cont mesalamine by mouth -eating well -no vomiting -abd pain continues to lessen each day # - -~13 weeks gestation -continue vitamins -Benadryl prn nausea; Vitamin B6 daily for prophylaxis - heart tones qshift -appreciate prior OB consultation; no concerns at this time from OB #Asthma - -chronic, controlled; no flare -Fluticasone/Vilanterol daily -Albuterol PRN -Cetirizine 10mg daily #Anxiety/Panic disorder - -Continue Prozac 30mg po q PM #Sinusitis - -seen on head CT 08/09/25 -left maxillary sinusitis -s/p 7 day course of augmentin - completed -no further ENT symptoms #Ulcerative Colitis - -cont Mesalamine 1.2gm daily -checked sed rate, crp - largely normal -recent CT a/p in May without colonic abnormalities -last colonoscopy - 06/2024- ulcerative proctitis at that time -see discussion above under N/V/abd pain -appreciate GI assistance and recommendations #DVT proph - -patient ambulating without difficulty pt's updated at bedside hopeful for d/c home tomorrow Admission and Anticipated Discharge Date Admission Date: August 17, 2025 Uvaldo Cerrato continues to have mild-moderate pain in the low abdomen - particularly the LLQ she reports the pain continues to "drop lower" in the abdomen she still feels she may be passing a stone or stone fragment urine is clear no dysuria no hematuria seen by GI - they are concerned she may have UC/Ulcerative proctitis and recommend mesalamine suppos/enema eating well (100% meals) no vomiting nausea controlled no blood per rectum & daughter were at bedside during the visit Review of Systems Review of Systems: gen - no fevers or chills cv - no chest pain pulm - no dyspnea Physical Exam Physical Exam: gen - NAD, lying in bed, looks well today mouth - MMM neck - no JVD heart - RRR, s1 s2, no murmur lungs - CTA b/l abd - soft, ND, BS+, no HSM; mild tenderness to palpation LLQ only today; no peritoneal signs ext - no edema, pulses 2+ b/l psych - a/o x 3 Results & Data Results & Data Vital Signs (Past 12 Hours) Vital Signs Temp Pulse Resp BP Pulse Ox O2 Del Method 08/18/25 15:50 36.8 C 79 14 106/68 99 Room Air 08/18/25 08:06 36.7 C 77 14 102/63 98 Room Air Laboratory Results Laboratory Results - last 24 hr 08/18/25 09:20 WBC 10.62 RBC 3.86 L Hgb 11.6 L Hct 35.0 L MCV 90.7 MCH 30.1 MCHC 33.1 RDW Std Deviation 44.2 RDW Coeff of Taty 13.4 Plt Count 313 MPV 9.3 L Immature Gran % (Auto) 0.3 Neut % (Auto) 70.5 Lymph % (Auto) 21.1 [place] % (Auto) 4.3 Eos % (Auto) 3.6 Baso % (Auto) 0.2 Neut # (Auto) 7.49 H Lymph # (Auto) 2.24 [place] # (Auto) 0.46 Eos # (Auto) 0.38 Baso # (Auto) 0.02 Immature Gran # (Auto) 0.03 Sodium 137 Potassium 3.8 Chloride 108 H Carbon Dioxide 23 Anion Gap 6 BUN 4 L Creatinine 0.45 L Est Cr Clr Drug Dosing 159.3 eGFR 133.47 BUN/Creatinine Ratio 8.9 L Glucose 125 H Calcium 8.7 Total Bilirubin 0.2 AST 13 ALT 10 Alkaline Phosphatase 45 Total Protein 6.3 Albumin 3.8 Globulin 2.5 Albumin/Globulin Ratio 1.5 Lipase 13 PG Care Time/CCT Total # of Minutes Spent Total Time Spent with Patient: Total time spent is greater than 50% in coordination of care (as documented) at patient's floor/unit and/or counseling patient: Coding Level of Care Code 31227 SUB INP/OBS CARE 35MIN Diagnoses Abdominal pain R10.9 Nausea & vomiting R11.2 12 weeks gestation of Z3A.12 Weeks of gestation: 12 weeks Sinusitis J32.9 Ulcerative colitis in remission K51.90 (3) Weeks of gestation: 12 weeks Qualified Code(s): Z3A.12 - 12 weeks gestation of
[2025-08-18] MEDS: MESALAMINE 4 GM/60 ML ENEMA PR SCH (21:16)
[2025-08-19] MEDS: DOCUSATE SODIUM 100 MG CAP PO PRN (09:29)
--- NOTE | 2025-08-19 14:32 | Hospitalist Progress Note ---
Date of Service August 19, 2025 Assessment & Plan (1) Constipation: (2) Abdominal pain: (3) Nausea & vomiting: (4) : (5) Sinusitis: (6) Ulcerative colitis: Plan 29yo female [id number] - nearly 13 weeks - presented with ongoing lower abdominal and flank pain as well as nausea and vomiting. heart tones auscultated in the ER and found to be normal. #Nausea/Vomiting/Abdominal Pain - -no vomiting in several days -however, continues with nausea and continues with LLQ abd pain -no blood per rectum, no vaginal bleeding, no hematuria -despite copious IV fluids, pain meds, etc. she continues to not feel well -we have treated for the possibility of a passing kidney stone and ulcerative proctitis (added [place] mesalamine in addition to PO mesalamine) -GI, urology, and harvest contractor have all provided consultation - appreciate their ass istance -today I messaged with harvest contractor, GI, and to seek out their opinion regarding repeat imaging in light of refractory symptoms -we ultimately decided to pursue CT given that the benefits of knowing the exact etiology of her pain would outweigh the risks of CT (and the heavy narcotic usage is not ideal in the setting of her ) -Blossom was initially agreeable then changed her mind about having the CT -thus, we pursued KUB x-ray and repeat renal u/s -renal u/s was normal --> no hydronephrosis or signs of an obstructing stone -KUB x-ray - my reading - COPIOUS stool throughout the entire colon c/w her clinical status of 1 tiny stool in the last 5-7 days -there are multiple pelvic calcifications - likely phleboliths rather than stone fragments -I showed Blossom the KUB and advised - -stopping the dilaudid - this is simply making the constipation worse (and the constipation may be the main culprit for her pain at this point) -miralax 3 doses tonight, followed by additional doses tomorrow morning -she may need a stimulant such as dulcolax -Blossom agreeable to the miralax, even willing to go so far as to perform a bowel prep -encouraged her to use tylenol prn pain -if we are desperate would try PO tramadol in low-doses only but even then would try to avoid narcotics moving forward -kept harvest contractor, GI, and informed of plan via [place] correspondence # - -~13 weeks gestation -continue vitamins -Vitamin B6 daily for prophylaxis of -related nausea - heart tones qshift -appreciate prior OB consultation; no concerns at this time from OB #Asthma - -chronic, controlled; no flare -Fluticasone/Vilanterol daily -Albuterol PRN -Cetirizine 10mg daily #Anxiety/Panic disorder - -Continue Prozac 30mg po q PM #Sinusitis - -seen on head CT 08/09/25 -left maxillary sinusitis -s/p 7 day course of augmentin - completed -no further ENT symptoms #Ulcerative Colitis and/or proctitis - -cont Mesalamine 1.2gm daily -checked sed rate, crp - largely normal -recent CT a/p in May without colonic abnormalities -last colonoscopy - 06/2024- ulcerative proctitis at that time -see discussion above under N/V/abd pain -appreciate GI assistance and recommendations #DVT proph - -patient ambulating without difficulty pt's updated at bedside yesterday very complex care coordination - multiple conversations with , GI, and harvest contractor; multiple bedside visits; reviewing imaging; etc. total care time today about 85 minutes at her request will stop IV fluids Admission and Anticipated Discharge Date Admission Date: August 17, 2025 Subjective continues with lower abdominal pain and nausea mild amount of low back pain at times no vomiting is able to eat/drink and keep everything down passing flatus but no significant stool last few days she was hopeful for going home today but she realizes she is having too much pain and that this may not happen we discussed obtaining additional imaging to determine the primary culprit for her pain --- kidney stone vs UC vs constipation vs other Review of Systems Review of Systems: gen - no fevers or chills cv - no chest pain pulm - no dyspnea - no hematuria GI - no BRBPR Physical Exam Physical Exam: gen - NAD, lying in bed, knitting a blanket, pleasant mouth - MMM neck - no JVD heart - RRR, s1 s2, no murmur lungs - CTA b/l abd - soft, ND but modestly protuberant, BS+, no HSM; again mild tenderness to palpation LLQ (and to lesser degree RLQ); no peritoneal signs ext - no edema, pulses 2+ b/l psych - a/o x 3 Results & Data Results & Data Vital Signs (Past 12 Hours) Vital Signs Temp Pulse Resp BP Pulse Ox O2 Del Method 08/19/25 07:52 37.3 C 73 18 93/58 L 99 Room Air Diagnostic Findings KUB X-Ray 08/19/25 14:31 INDICATION: Abdominal pain TECHNIQUE: Portable supine view radiograph of the abdomen was obtained. COMPARISON: CT abdomen pelvis June 04, 2025 FINDINGS: No definite calculus is identified over the kidney shadows and no definite correlate of the 3 mm intrarenal calculus of the left kidney noted in the previous CT examination dated June 04, 2025. Multiple calcifications are present over the pelvis. Ureteral stones are possible however these cannot be ascertained from pelvic phleboliths. The bowel gas pattern is nonobstructive. Evaluation for free air is limited due to supine technique. Organ silhouettes are normal in shape and contour. There is no gross mass effect. IMPRESSION: No definite calculus is identified over the kidney shadows and no definite correlate of the 3 mm intrarenal calculus of the left kidney noted in the previous CT examination dated June 04, 2025. Multiple calcifications are present over the pelvis. Ureteral stones are possible however these cannot be ascertained from pelvic phleboliths. If clinical symptoms warrant, recommend further evaluation with CT. Electronically signed by Sina Guthrie 08-19-2025 5:13 PM Renal Ultrasound 08/19/25 14:31 Renal ultrasound Technique: Grayscale and color Doppler ultrasound images of the kidneys. Comparison made to prior exam dated 08/15/2025 Findings: No hydronephrosis. Right kidney measures 11 cm in length. Left kidney measures 12 cm in length. Bilateral ureteral jets present. Impression Unremarkable exam Electronically signed by Vadim Hauser 08-19-2025 4:24 PM PG Care Time/CCT Total # of Minutes Spent Total Time Spent with Patient: Total time spent is greater than 50% in coordination of care (as documented) at patient's floor/unit and/or counseling patient: Prolonged Care Time Prolonged Care Time: Yes Total Prolonged Care Time: 85 Coding Level of Care Code 25401 SUB INP/OBS CARE 3/50MIN (25 - SIGNIFICANT, SEPARATELY IDENTIFIABLE ) Diagnoses Constipation K59.00 Abdominal pain R10.9 Nausea & vomiting R11.2 12 weeks gestation of Z3A.12 Weeks of gestation: 12 weeks Sinusitis J32.9 Ulcerative colitis K51.90 Additional Codes Prolonged Care Time - Prolonged Care Time: Yes ([id number]) (4) Weeks of gestation: 12 weeks Qualified Code(s): Z3A.12 - 12 weeks gestation of
[2025-08-19] MEDS: diphenhydrAMINE 50 MG/ML VIAL IV PRN (15:57)
--- NOTE | 2025-08-19 16:26 | Ultrasound Report ---
Renal ultrasound Technique: Grayscale and color Doppler ultrasound images of the kidneys. Comparison made to prior exam dated 08/15/2025 Findings: No hydronephrosis. Right kidney measures 11 cm in length. Left kidney measures 12 cm in length. Bilateral ureteral jets present. Impression Unremarkable exam Electronically signed by Vadim Hauser 08-19-2025 4:24 PM
--- NOTE | 2025-08-19 17:13 | XRay Report ---
INDICATION: Abdominal pain TECHNIQUE: Portable supine view radiograph of the abdomen was obtained. COMPARISON: CT abdomen pelvis June 04, 2025 FINDINGS: No definite calculus is identified over the kidney shadows and no definite correlate of the 3 mm intrarenal calculus of the left kidney noted in the previous CT examination dated June 04, 2025. Multiple calcifications are present over the pelvis. Ureteral stones are possible however these cannot be ascertained from pelvic phleboliths. The bowel gas pattern is nonobstructive. Evaluation for free air is limited due to supine technique. Organ silhouettes are normal in shape and contour. There is no gross mass effect. IMPRESSION: No definite calculus is identified over the kidney shadows and no definite correlate of the 3 mm intrarenal calculus of the left kidney noted in the previous CT examination dated June 04, 2025. Multiple calcifications are present over the pelvis. Ureteral stones are possible however these cannot be ascertained from pelvic phleboliths. If clinical symptoms warrant, recommend further evaluation with CT. Electronically signed by Sina Guthrie 08-19-2025 5:13 PM
[2025-08-19] MEDS: POLYETHYLENE (MIRALAX) 17 GM PACK PO SCH (17:27)
[2025-08-19] MEDS ORDERED: ONDANSETRON INJ 2 MG/ML 2 ML VIAL IV PRN (20:10)
[2025-08-19] MEDS: ACETAMINOPHEN 1,000 MG/100 ML VIAL IV PRN (20:45)
--- NOTE | 2025-08-19 21:02 | Communication Note ---
Date of Service: August 19, 2025 Notified by RN of patient requesting medication for pain management. Arrived at bedside for further discussion. Patient found to be sitting up in bed, awake alert and oriented, afebrile, and in no acute distress. She expressed concern of getting adequate pain control with Tylenol and is requesting reinitiating Dilaudid. Discussed with patient that current abdominal pain may be at least in part related to constipation noted on imaging, and that use of Dilaudid or any opioid medication may contribute to worsening constipation and/or delay successful management of this. Discussed that to meet the before mentioned goal, the primary team is working with GI and inside b2b sales to assess options such as bowel prep and implement them and that it is possible this may not happen immediately. Also mentioned that, realistically, in cases where a patient develops severe pain that requires hospital admission, it often necessitates a step cotter approach to find optimal management strategy that is both safe and can be continued after she is discharged back home, and that options available to us that carry less/ no risk are less considering her current . Proposed use of IV Tylenol (since she endorses nausea with PO meds) on a scheduled basis, as well as doubling tonight's dose of Miralax to 34 gm instead of 17 gm. Added Simethicone for possible gas pain after she expressed concern of this. Explained that if pain were to be severe despite implementing the before mentioned remedies, can try Tramadol instead of Dilaudid but it would not be the preferred option considering her current and not ideal in advancing her care plan as mentioned before. Patient voiced understanding of what was discussed and agreed to try the proposed plan, but feels like it will not work and may call later on in the night to ask for other analgesics, however this did not happen. Will continue to monitor. With regards to nausea, patient states Benadryl is very effective in managing her symptoms and was requesting to shorten the frequency of dosing. Patient endorses generalized pruritus when using Zofran as well as past reaction when using Reglan, so would prefer to stay away from these medications. With regards to increasing frequency of dosing of Benadryl, discussed that this would increase risk of developing adverse effects such as delirium, agitation, tachycardia, urinary retention, visual changes, and possibly even worsen current nausea and constipation. Discussed other options such as Compazine which she states she had a good response to in the past, as well as behavioral changes such as smelling alcohol wipes. Patient voiced understanding and agreed to try this. Resident Activity Tracking Resident Involvement: Resident Care Provided Care Provided: Adult [facility] Medicine
[2025-08-19] MEDS ORDERED: SIMETHICONE 40 MG/0.6 ML 30ML PO PRN (21:08)
[2025-08-19] MEDS: PROCHLORPERAZINE 5 MG in SYRINGE 4 ML IV ONE (23:03)
[2025-08-20] MEDS: POLYETHYLENE (MIRALAX) 17 GM PACK PO ONE (01:00)
[2025-08-20] MEDS: POLYETHYLENE (MIRALAX) 17 GM PACK PO SCH ×2 (06:08→13:59)
[2025-08-20 07:24] VITALS: TEMP 98.1
[2025-08-20 14:27] VITALS: BP 99/64; PULSE 86; RESP 18; O2SAT 99
[2025-08-20] MEDS: PROCHLORPERAZINE 5 MG in SYRINGE 4 ML IV ONE (15:58)
--- NOTE | 2025-08-20 17:29 | Discharge Summary ---
Discharge Summary Date of Service August 20, 2025 Principal Dx & Hospital Course #1 = Principal Diagnosis (1) Constipation: (2) Abdominal pain: (3) Nausea & vomiting: (4) : (5) Sinusitis: (6) Ulcerative colitis: Plan 29yo female [id number] - nearly 13 weeks - presented with ongoing lower abdominal and flank pain as well as nausea and vomiting. heart tones auscultated in the ER and found to be normal. #Nausea/Vomiting/Abdominal Pain - -no vomiting in several days -however, continues with nausea and continues with LLQ abd pain -no blood per rectum, no vaginal bleeding, no hematuria -despite copious IV fluids, pain meds, etc. she continues to not feel well -we have treated for the possibility of a passing kidney stone and ulcerative proctitis (added NC mesalamine in addition to PO mesalamine) -GI, urology, and spool cleaner hand have all provided consultation - appreciate their assistance -today I messaged with spool cleaner hand, GI, and to seek out their opinion regarding repeat imaging in light of refractory symptoms -we ultimately decided to pursue CT given that the benefits of knowing the exact etiology of her pain would outweigh the risks of CT (and the heavy narcotic usage is not ideal in the setting of her ) -Blossom was initially agreeable then changed her mind about having the CT -thus, we pursued KUB x-ray and repeat renal u/s -renal u/s was normal --> no hydronephrosis or signs of an obstructing stone -KUB x-ray - my reading - COPIOUS stool throughout the entire colon c/w her clinical status of 1 tiny stool in the last 5-7 days -there are multiple pelvic calcifications - likely phleboliths rather than stone fragments -I showed Blossom the KUB and advised - -stopping the dilaudid - this is simply making the constipation worse (and the constipation may be the main culprit for her pain at this point) -miralax 3 doses tonight, followed by additional doses tomorrow morning -she may need a stimulant such as dulcolax -Blossom agreeable to the miralax, even willing to go so far as to perform a bowel prep -encouraged her to use tylenol prn pain -if we are desperate would try PO tramadol in low-doses only but even then w ould try to avoid narcotics moving forward -kept spool cleaner hand, GI, and informed of plan via [place] correspondence # - -~13 weeks gestation -continue vitamins -Vitamin B6 daily for prophylaxis of -related nausea - heart tones qshift -appreciate prior OB consultation; no concerns at this time from OB #Asthma - -chronic, controlled; no flare -Fluticasone/Vilanterol daily -Albuterol PRN -Cetirizine 10mg daily #Anxiety/Panic disorder - -Continue Prozac 30mg po q PM #Sinusitis - -seen on head CT 08/09/25 -left maxillary sinusitis -s/p 7 day course of augmentin - completed -no further ENT symptoms #Ulcerative Colitis and/or proctitis - -cont Mesalamine 1.2gm daily -checked sed rate, crp - largely normal -recent CT a/p in May without colonic abnormalities -last colonoscopy - 06/2024- ulcerative proctitis at that time -see discussion above under N/V/abd pain -appreciate GI assistance and recommendations #DVT proph - -patient ambulating without difficulty pt's updated at bedside yesterday very complex care coordination - multiple conversations with , GI, and spool cleaner hand; multiple bedside visits; reviewing imaging; etc. total care time today about 85 minutes at her request will stop IV fluids Admission HPI Per Admitting Provider Blossom Pappas is a 29yo [id number] at 12.5 weeks of presenting with lower abdominal pain and back pain. Patient with history of UC for which she takes Mesalamine. Reports that on 08/09/25 she developed some lightheadedness, black spots in her vision and had a syncopal event. She was seen in the ER and diagnosed with acute sinusitis. She was started on Augmentin and discharged home. She returned to the ER on 08/12/25 with complaint of pelvic pain/cramping and vaginal bleeding. Patient had an ultrasound performed in the ER and found to have a single live intrauterine gestation. She was told to take Tylenol for discomfort and was ultimately discharged home. Patient again seen in the ER on 08/13/25 with complaint of pelvic pain and bleeding. She had a bedside ultrasound which revealed good heart sounds and movement. She was given Dilaudid in the ER as well as Benadryl, NSS, Zofran. She was ultimately discharged home with Tramadol 50mg home pack. Patient was seen by OB on 08/14/25 She returns to the ER this evening with complaint of persistent, severe lower abdominal discomfort - 04/06. Also with significant ongoing nausea with vomiting and decreased oral intake. OB called patient to check on her today around 14:00 and she told them of her ongoing discomfort and was subsequently instructed to come to the ER. Patient reports that her vaginal bleeding has stopped. She denies fever but has had occasional chills. No dysuria. No chest pain, cough, SOB. She had some diarrhea on 08/13/25 which is typical for her UC - no blood. She took a Mesalamine suppository and has not had a BM since. Pain is severe, lower abdominal with occasional radiation into the flanks bilaterally. Occasional back pain L > R. She reports some pelvic cramping with urination as well as some difficulty starting her urinary stream. Feels that she is unable to fully empty her bladder. Possibly passing some urinary sediment. She took some Tramadol at home which provided some relief. Was unable to fill her PO Dilaudid prescription. Feels that symptoms are somewhat similar to when she had a kidney stone in early June. At that time she reports urinating with a weak stream, then the stream stopped and she heard a "plop" in the commode then her urinary stream immediately increased and her pain resolved. In the ER patient is afebrile, HD stable ER Course: Tylenol NSS x 1L Benadryl Zofran Dilaudid 0.25 + 0.25mg IV Discharge Exam gen - NAD, lying in bed, knitting a blanket, pleasant mouth - MMM neck - no JVD heart - RRR, s1 s2, no murmur lungs - CTA b/l abd - soft, ND but modestly protuberant, BS+, no HSM; again mild tenderness to palpation LLQ (and to lesser degree RLQ); no peritoneal signs ext - no edema, pulses 2+ b/l psych - a/o x 3 Discharge Plan Discharge Items Patient Disposition: Home - Self-Care Reason For Visit: ABDOMINAL PAIN Discharge Diagnosis: 1. abdominal pain - suspect due to severe constipation; cannot rule out ulcerative proctitis contributing; cannot rule out a passed kidney stone contributing 2. 3. ulcerative colitis 4. history of kidney stone Activity: Resume your previous activity Non-emergency contact: Primary Care Provider, Electric Deicer Inspector and Pack Master Call non-emergency contact if: you have any medication questions, your symptoms worsen, your pain is not controlled, your pain is worsening and you have a fever Follow-up/Referrals: Lizet Guerrero PA-C [Physician Respooler] - (see [facility] within 2 weeks for your UC ) Melody Jerome DO [Primary Care Provider] - (within 1 week) Agnieszka Watters MD [Physician] - 09/11/25 (keep your previously scheduled visit with [facility] ) Diet: Regular Addtl Attending Provider Instructions: Ms Pappas, You were hospitalized due to abdominal pain, nausea and vomiting. You were seen by OB, urology, and gastroenterology. Multiple tests were run including blood work, urinalysis, x-rays of your abdomen, and kidney ultrasound x 2. Despite treating for a possible passing kidney stone your pain continued. Gastroenterology suggested restarting mesalamine suppositories in case you have active ulcerative proctitis. The x-ray of your abdomen showed severe constipation. After taking a large amount of miralax you finally had several bowel movements. I suspect that constipation +/- a passing kidney stone were the main culprits for your symptoms. We cannot rule out ulcerative proctitis contributing to your pain. Recommendations - 1. prochlorperazine (Compazine) 5mg every 6 hours as needed for nausea and/or vomiting. -use sparingly if possible 2. starting tomorrow please use your discretion about the amount of miralax to take. You may need to take 2 or 3 doses tomorrow to have another good bowel movement. Once you feel you are ahead of the constipation problem you will likely need to take miralax on a daily basis to prevent the constipation from happening again. 3. restart mesalamine suppositories 1gm at bedtime; I refilled this medicine for you. As recommended by gastroenterology please plan to take the suppositories for 6 weeks. 4. if you have tramadol at home please use this sparingly, if at all, as the tramadol will worsen your constipation and the pain killer does cross over to the baby. If you feel that you are needing to use pain medicine due to worsening abdominal pain you should be seen again in the emergency room. 5. please plan to see [facility] within the next 2 weeks for a recheck. 6. during your travels for the it is essential that you stop and get out of your car about every 1.5 to 2 hours to stretch and take a walk. This is vital for prevention of DVT blood clots of the legs. Inflammatory bowel disease, recent hospitalizations, being , travel, etc are all blood clot risk factors. Return to [facility] if - -you have fevers over 100 degrees -you have worsening abdominal pain -you have uncontrolled nausea and/or vomiting -you are having blood in your stools -you are having blood in your urine -any other concerns It was our pleasure to care for you! Have a nice , -Drew Almanza, hospitalist Pending Studies at Discharge: No Stand-Alone Forms: My [facility], Smoking Cessation Medications and DC Order Prescriptions: New mesalamine 1,000 mg suppository 1 g NC HS 42 Days Qty: 42 0RF prochlorperazine maleate [Compazine] 5 mg tablet 5 mg PO Q6H PRN (Reason: nausea and vomiting) Qty: 10 0RF polyethylene glycol 3350 [Miralax] 17 gram Powder In Packet 17 g PO DAILY Qty: 30 1RF Rx Instructions: purchase [id number] Continued esomeprazole magnesium 20 mg capsule,delayed release(DR/EC) 20 mg PO QPM epinephrine 0.3 mg/0.3 mL auto-injector 0.3 mg IM Q15M PRN (Reason: anaphylaxis) Qty: 2 0RF (DME) inhalational spacing device Spacer See Rx Instructions .ROUTE .MEDSUPPLY Qty: 1 0RF Rx Instructions: As directed cetirizine [Zyrtec] 10 mg Tablet 10 mg PO QPM acetaminophen 500 mg Tablet 1,000 mg PO Q6H PRN (Reason: Pain) ondansetron 4 mg tablet,disintegrating 4 mg PO Q6H PRN (Reason: nausea and vomiting) Qty: 14 0RF diphenhydramine HCl [Unisom SleepGels] 50 mg Capsule 25 mg PO HS PRN (Reason: Nausea) pyridoxine (vitamin B6) [Vitamin B-6] 100 mg Tablet 100 mg PO DAILY budesonide-formoterol 80-4.5 mcg/actuation HFA aerosol inhaler 2 puff INHALATION QPM tramadol 25 mg tablet 25 mg PO Q6H PRN (Reason: pain) Qty: 15 0RF fluoxetine 10 mg capsule 10 mg PO QPM Rx Instructions: TOTAL DOSE 30 MG--TAKES WITH 20 MG CAP. fluoxetine 20 mg capsule 20 mg PO QPM Rx Instructions: TOTAL DOSE 30 MG--TAKES WITH 10 MG CAP. PNV no.95-ferrous fumarate-FA [] 28 mg iron- 800 mcg Tablet 1 tab PO QPM albuterol sulfate 90 mcg/actuation HFA aerosol inhaler 2 puff INHALATION Q4 PRN (Reason: Shortness Of Breath Or Wheezing) mesalamine 1.2 gram tablet,delayed release (DR/EC) 4.8 g PO QPM Discontinued hydromorphone [Dilaudid] 2 mg tablet 2 mg PO Q4H PRN (Reason: pain (scale score 7-10)) Qty: 7 0RF amoxicillin-pot clavulanate 875-125 mg tablet 1 tab PO BID Qty: 14 0RF Rx Instructions: STARTED 08/09/25 FOR 7 DAYS Discharge Orders: Discharge Order (Routine); Ordered 08/20/25 Ordered By: Drew Montes/Other Patient Handouts: ED Constipation (Adult) Admission Data Admit Date/Time: 08/17/25 19:25 Attending Provider: Drew Almanza Admit Provider: Florina Terry Primary Care Provider: Melody Jerome Other Providers: Florina Terry; Agnieszka Watters; Travis Ramirez; Lavelle Santana Hospital Stay Data Consultations 08/15/25 22:09 ED Decision to Admit Stat 08/15/25 23:58 Consult Obstetrics Routine 08/17/25 11:17 Consult Urology Routine 08/18/25 08:45 Consult Gastroenterology Routine Diagnostic Imagining Performed 08/15/25 18:15 US Renal Bladder [US renal/blad retro comp] Stat 08/19/25 14:31 US renal/blad retro comp Stat Pending Results Patient Have Any Pending Studies at Discharge: No Discharge Instructions Given to Patient (Per Discharging Provider) Ms Pappas, Donald were hospitalized due to abdominal pain, nausea and vomiting. You were seen by OB, urology, and gastroenterology. Multiple tests were run including blood work, urinalysis, x-rays of your abdomen, and kidney ultrasound x 2. Despite treating for a possible passing kidney stone your pain continued. Gastroenterology suggested restarting mesalamine suppositories in case you have active ulcerative proctitis. The x-ray of your abdomen showed severe constipation. After taking a large amount of miralax you finally had several bowel movements. I suspect that constipation +/- a passing kidney stone were the main culprits for your symptoms. We cannot rule out ulcerative proctitis contributing to your pain. Recommendations - 1. prochlorperazine (Compazine) 5mg every 6 hours as needed for nausea and/or vomiting. -use sparingly if possible 2. starting tomorrow please use your discretion about the amount of miralax to take. You may need to take 2 or 3 doses tomorrow to have another good bowel movement. Once you feel you are ahead of the constipation problem you will likely need to take miralax on a daily basis to prevent the constipation from happening again. 3. restart mesalamine suppositories 1gm at bedtime; I refilled this medicine for you. As recommended by gastroenterology please plan to take the suppositories for 6 weeks. 4. if you have tramadol at home please use this sparingly, if at all, as the tramadol will worsen your constipation and the pain killer does cross over to the baby. If you feel that you are needing to use pain medicine due to worsening abdominal pain you should be seen again in the emergency room. 5. please plan to see [facility] within the next 2 weeks for a recheck. 6. during your travels for the it is essential that you stop and get out of your car about every 1.5 to 2 hours to stretch and take a walk. This is vital for prevention of DVT blood clots of the legs. Inflammatory bowel disease, recent hospitalizations, being , travel, etc are all blood clot risk factors. Return to [facility] if - -you have fevers over 100 degrees -you have worsening abdominal pain -you have uncontrolled nausea and/or vomiting -you are having blood in your stools -you are having blood in your urine -any other concerns It was our pleasure to care for you! Have a nice Thanksgiving, -Drew Siuta, hospitalist Coding Diagnoses Constipation K59.00 Abdominal pain R10.9 Nausea & vomiting R11.2 12 weeks gestation of Z3A.12 Weeks of gestation: 12 weeks Sinusitis J32.9 Ulcerative colitis K51.90
== END 2025-08-20 17:50 | disposition home or self-care (01) | DRG 832 ==
LOC: SUATTDRO → 3E 16:41 → ED 16:41 → SUATTDRO 22:39 → 3E 23:05